=== PATIENT | female | born 1940 | race Caucasian/White ===

== ENCOUNTER → 2017-07-17 10:48 | Outpatient (CLI) | payer MEDICARE, SELFPAY ==
--- NOTE | 2017-07-17 10:51 | ECHOD_ITS ---
Reason For Study: Abn. PFT Procedure This was a 2D Doppler, Color Flow transthoracic echocardiogram. Exam performed in department. Left Ventricle Normal LV size. Mild concentric left ventricular hypertrophy. Left ventricular systolic function is normal. The estimated ejection fraction is 70 %. No regional wall motion abnormalities noted. Right Ventricle Normal RV size. Normal systolic function. Atria Normal left atrium. Normal right atrium. Mitral Valve Normal mitral valve. Mild (1+) eccentric mitral valve insufficiency. Tricuspid Valve Normal tricuspid valve. Mild (1+) tricuspid valve insufficiency. Pulmonary artery systolic pressure is 29 mmHg. Aortic Valve Normal aortic valve. Trisinus/trileaflet aortic valve. Pulmonic Valve Normal pulmonic valve. Great Vessels Normal aortic root. The pulmonary artery is normal size. Normal inferior vena cava. Pericardium/Pleural No pericardial effusion. Medication 22 gauge I.V. with prn adaptor inserted into right arm. Definity0.4ml given slow IV push to enhance endocardial definition. MMode/2D Measurements & Calculations LVIDd: 3.5 cm IVSd: 1.3 cm Ao root diam: 2.7 cm LVIDs: 1.7 cm LVPWd: 1.3 cm LA dimension: 4.1 cm RVDd: 2.6 cm FS: 50.7 % LAV(MOD-bp): 40.5 ml LAV(MOD-bp) Indexed: 22.1 ml/m2 LA A4 area: 18.1 cm2 RA A4 area: 18.0 cm2 LAV(MOD-sp2): 26.9 ml LAV(MOD-sp4): 45.4 ml Doppler Measurements & Calculations MV E max dudley: 115.6 cm/sec Lat Peak E' Dudley: 7.5 cm/sec Med Peak E' Dudley: 7.6 cm/sec MV A max dudley: 75.1 cm/sec E/E' lat: 15.4 E/E' med: 15.2 MV E/A: 1.5 Ao V2 max: 127.9 cm/sec LV V1 max: 99.7 cm/sec PA V2 max: 69.5 cm/sec Ao max P.5 mmHg LV V1 max P.0 mmHg TR max dudley: 248.1 cm/sec TR max P.7 mmHg Interpretation Summary Normal LV size. Mild concentric left ventricular hypertrophy. Left ventricular systolic function is normal. The estimated ejection fraction is 70 %. Mild (1+) tricuspid valve insufficiency. Pulmonary artery systolic pressure is 29 mmHg. Ordering Physician: Swapna Lowry Performed By: Krys Gomez RDCS
== END ==
PROVIDERS: Family Provider Internal Medicine; PCP Internal Medicine; Visit Provider Internal Medicine
DX: R94.2 Abnormal results of pulmonary function studies (principal); R94.31 Abnormal electrocardiogram [ECG] [EKG]
CPT/HCPCS: 93306; Q9957; A4216

== ENCOUNTER → 2018-03-27 12:49 | Outpatient (CLI) | payer MEDICARE, SELFPAY | PROVIDERS: Family Provider Internal Medicine; PCP Internal Medicine; Visit Provider Internal Medicine | DX: Z13.1 Encounter for screening for diabetes mellitus (principal) | CPT/HCPCS: 77063; 77067 ==

== ENCOUNTER → 2018-08-19 10:10 | Outpatient (CLI) | payer MEDICARE, SELFPAY ==
--- NOTE | 2018-08-19 10:13 | MRI_ITS ---
STUDY: MRI BRAIN WITH AND WITHOUT CONTRAST REASON FOR EXAM: Female, 78 years old. Left tinnitus. Decreased hearing since ear infection 3-5 years ago. TECHNIQUE: Standardized multiplanar fat and water weighted pulse sequences were obtained. 8 ml of Gadavist contrast material was administered intravenously for the contrast portion of the examination. COMPARISON: None. FINDINGS: Normal size of the ventricles and extra-axial spaces for the patient's age. Subcortical white matter and periventricular white matter T2 FLAIR hyperintensity foci in both cerebral hemispheres are chronic white matter ischemic changes. Normal bilateral basal ganglia. Normal thalami. There is no extra-axial fluid accumulation. Normal flow voids within the major intracranial circulation suggesting patency by spin echo criteria. Normal venous enhancement. There is no enhancing intra-axial or extra-axial abnormality. Normal sella turcica, pituitary gland, infundibular stalk, optic chiasm and hypothalamus. Normal tectal plate and pineal gland. Normal midbrain, joanna and medulla. Normal cerebellum. Normal basal cisterns. Normal bilateral temporal bones. Normal bilateral internal auditory canals. No demonstrated orbital abnormality, within the constraints of a routine brain study. Normal visualized paranasal sinuses. Normal calvarium and skull base. Normal visualized soft tissue structures. Normal visualized upper cervical spine. MRI/Brain W/WO Contrast IMPRESSION: 1. No MRI evidence of acute or subacute ischemic infarct or acute intracranial abnormality. 2. No MRI evidence of any suspicious abnormalities of the 7th and 8th nerve bundles and the membranous labyrinths with and without intravenous contrast. 3. Chronic white matter ischemic changes in both cerebral hemispheres. Electronically Signed: Adonis Zaman MD at 12:00 EST , Service support ,
[2018-08-19 10:55] LABS: CREATININE FINGERSTICK 0.9 mg/dL (0.55-1.02); EGFR FINGERSTICK > 60.0000 mL/min (>60)
== END ==
PROVIDERS: Family Provider Internal Medicine; PCP Internal Medicine; Referring Provider Internal Medicine; Visit Provider Internal Medicine
DX: H93.12 Tinnitus, left ear (principal)
CPT/HCPCS: 70553; A9585

== ENCOUNTER → 2019-04-15 14:28 | Outpatient (CLI) | payer MEDICARE, SELFPAY ==
--- NOTE | 2019-04-15 14:32 | BI_ITS ---
MAMMOGRAPHY - BILATERAL SCREENING REASON FOR EXAM: Female, 79 years old. Routine annual screening examination. PERTINENT HISTORY: Non-contributory. TECHNIQUE: Digital bilateral breast ej (3D mammographic acquisition) in the CC and MLO projections. 2-D mediolateral oblique (MLO) and craniocaudad (CC) views of both breasts were obtained. CAD: Full Field Digital Mammography with Computer Added Detection was performed. COMPARISON: Comparison is made with prior examination dated March 27, 2018 and March 26, 2017. FINDINGS: Breast Composition: The breasts are almost entirely fatty. There are no dominant masses or suspicious calcifications. Stable secretory calcifications bilaterally. No other significant abnormalities are identified. There has been no significant change since the prior study. BI/SCREEN MAMM (CAD) W/EJ BILAT IMPRESSION: Stable bilateral screening mammogram. Yearly follow-up mammogram recommended. (A) ASSESSMENT CATEGORY: BIRADS Category 2: Benign. A letter regarding these results will be sent to the patient by the facility within 30 days. Approximately 10% of breast cancers are not detected by mammography. A normal mammogram should not delay biopsy of a clinically suspicious abnormality. [id number] Electronically Signed: Narciso Alexis, at 15:39 EDT , Service support ,
--- NOTE | 2019-04-15 14:33 | BD_ITS ---
STUDY: DUAL ENERGY X-RAY ABSORPTIOMETRY / DXA REASON FOR EXAM: Female, 79 years old. The patient is postmenopausal. Loss of height. TECHNIQUE: Bone Mineral Density (BMD) measurements of lumbar spine and right hip were obtained. COMPARISON: Comparison is made with prior study dated March 26, 2017. FINDINGS: Lumbar Spine (L1-L4): g/cm2 (1.145) / T-score (-0.2) / Z-score (1.6) Findings are suggestive of normal bone density with a low fracture risk. Right Femur Total: g/cm2 (0.783) / T-score (-1.8) / Z-score (0.2) Right Femoral Neck: g/cm2 (0.773) / T-score (-1.9) / Z-score (0.2) The T-Scores on the most recent prior examination were: Lumbar Spine (L1-L4): There has been improvement of bone density since the previous examination. Right Femur Total: which represents a worsening of 3.6%. BD/Dexa Bone Density Study IMPRESSION: The patient is considered osteopenic as outlined below according to World Laron Organization (WHO) criteria with a moderate fracture risk. There has been worsening of bone density since the previous examination. Reference Information: The T-score is the number of standard deviations above or below the standard which is normal for young adults at their peak bone mineral density. The World Health Organization (WHO) interprets the T-scores as follows: Above -1 Normal bone density Between -1 and -2.5 Osteopenia Equal to / or below -2.5 Osteoporosis As a practical clinical guideline, osteopenia may be graded as follows: Mild -1 through -1.5 Moderate -1.6 through -2.0 Severe -2.1 through -2.4 The Z-score is the number of standard deviations above or below age-matched controls. A Z-score of less than -1.5 would be considered abnormal. References: 1. NIH Osteoporosis and Related Bone Diseases http://www.osteo.org 2. International Society for Clinical Densitometry http://www.iscd.org 3. National Osteoporosis Foundation http://www.nof.org Electronically Signed: Narciso Alexis, at 8:56 EDT , Service support ,
== END ==
PROVIDERS: Family Provider Internal Medicine; PCP Internal Medicine; Referring Provider Internal Medicine; Visit Provider Internal Medicine
DX: Z78.0 Asymptomatic menopausal state (principal); Z12.31 Encounter for screening mammogram for malignant neoplasm of breast
CPT/HCPCS: 77063; 77067; 77080

== ENCOUNTER 2019-07-27 16:06 | Emergency (ER) | payer MEDICARE, SELFPAY ==
[2019-07-12 15:24] VITALS: BMI 37.0
[2019-07-27 16:08] VITALS: BP 194/68; PULSE 67; RESP 16; TEMP 36.6; O2SAT 95; BMI 38.4
[2019-07-27 16:10] VITALS: PULSE 65; RESP 16; O2SAT 97
--- NOTE | 2019-07-27 16:16 | RAD_ITS ---
STUDY: X-RAY - RIGHT SHOULDER REASON FOR EXAM: Female, 79 years old. Lateral right shoulder pain after falling TECHNIQUE: 4 view(s) of the shoulder. COMPARISON: None. FINDINGS: There is mild degenerative arthrosis of the glenohumeral articulation. There is degenerative arthrosis of the acromioclavicular joint without inferior osseous spur formation. There is spurring of the undersurface of the acromion. Normal humeral head and visualized proximal humerus. The soft tissue structures are unremarkable. Normal visualized pulmonary apex. RAD/Shoulder min 2 Views IMPRESSION: Glenohumeral and acromioclavicular joint arthrosis Electronically Signed: Mayo Cm MD (Brooks) at 16:52 EST , Service support ,
--- NOTE | 2019-07-27 16:18 | ED.DCSUM_ITS ---
- ER Visit Summary Date of Service: 07/27/19 Chief Complaint: Fall History of Present Illness: The patient is a 79 F presenting after fall. Patient was going to the mailbox and tripped and fell. She did not hit her head or lose consciousness. She states she tripped over a small curb. She complains of right shoulder pain. Denies other injuries. Physical Examination: Vitals are stable. Patient is afebrile. Alert no acute distress. HEENT exam is unremarkable. Neck is nontender Lungs are clear and equal bilaterally. Heart is regular rate and rhythm. Abdomen is soft nontender nondistended. Extremities mild diffuse right shoulder tenderness with painful range of motion. Neurovascular intact distally. Skin is warm and dry. No focal neurologic deficit. Remainder of exam is unremarkable. Emergency Department Course and Treatment: Right shoulder x-ray shows glenohumeral and acromioclavicular joint arthrosis. She was given [place] x1. She is given a short course of [place]. She was given a sling. She is able to ambulate in the ED. Advised to follow-up with primary care physician. Advised return to ED for worsening complaints. Disposition: Discharge home Impression: Right shoulder sprain status post fall This note was generated with indidebt dictation software. It may contain incorrect words, spelling, and punctuation that were not noted in review of the chart prior to signing ED Disposition - Plan for ED Patient: Instructions: Shoulder Sprain Prescriptions: Hydrocodone Bitart/Apap 5-325 [[place] 5MG-325MG] 1 tab PO Q6H PRN PRN 3 Days #10 tab PRN Reason: Pain Prescription Printed Referrals: Swapna Lowry DO [Primary Care Provider] -
[2019-07-27] MEDS: HYDROcodone Bitartrate/Apap 5/325 Tablet PO (16:21)
--- NOTE | 2019-07-27 17:27 | ED.DEP ---
ED Disposition - Plan for ED Patient: Instructions: Shoulder Sprain Prescriptions: Hydrocodone Bitart/Apap 5-325 [[place] 5MG-325MG] 1 tablet PO Q6H PRN PRN 3 Days #10 tablet PRN Reason: Pain Referrals: Swapna Lowry DO [Primary Care Provider] -
[2019-07-27 17:37] VITALS: RESP 16
== END 2019-07-27 17:37 | disposition home or self-care (01) ==
LOC: ED 16:21
PROVIDERS: Emergency Provider Emergency Medicine; Family Provider Internal Medicine; PCP Internal Medicine
DX: S43.401A Unspecified sprain of right shoulder joint, initial encounter (principal); M19.011 Primary osteoarthritis, right shoulder; W01.0XXA Fall on same level from slipping, tripping and stumbling without subsequent striking against object, initial encounter; Y93.9 Activity, unspecified; Y92.9 Unspecified place or not applicable; I10 Essential (primary) hypertension; E78.00 Pure hypercholesterolemia, unspecified; Z79.82 Long term (current) use of aspirin; Z79.899 Other long term (current) drug therapy
CPT/HCPCS: 73030; 99285

== ENCOUNTER → 2020-04-18 16:07 | Outpatient (CLI) | payer MEDICARE, SELFPAY ==
--- NOTE | 2020-04-18 16:18 | BI_ITS ---
MAMMOGRAPHY - BILATERAL SCREENING REASON FOR EXAM: Female, 80 years old. Routine annual screening examination. PERTINENT HISTORY: Non-contributory. TECHNIQUE: Digital bilateral breast ej (3D mammographic acquisition) in the CC and MLO projections. 2-D mediolateral oblique (MLO) and craniocaudad (CC) views of both breasts were obtained. CAD: Full Field Digital Mammography with Computer Added Detection was performed. COMPARISON: Comparison is made with prior study dated 04/15/2019 and 03/27/2018. FINDINGS: Breast Composition: The breasts are almost entirely fatty. There are no dominant masses or suspicious calcifications. Stable benign-appearing bilateral axillary lymph nodes. Stable bilateral secretory calcifications. No other significant abnormalities are identified. There has been no significant change since the prior study. BI/SCREEN MAMM (CAD) W/EJ BILAT IMPRESSION: Stable bilateral screening mammogram. Yearly follow-up mammogram recommended. (A) ASSESSMENT CATEGORY: BIRADS Category 2: Benign. A letter regarding these results will be sent to the patient by the facility within 30 days. Approximately 10% of breast cancers are not detected by mammography. A normal mammogram should not delay biopsy of a clinically suspicious abnormality. [id number] Electronically Signed: Narciso Alexis, at 8:41 EDT , Service support ,
== END ==
PROVIDERS: PCP Internal Medicine; Referring Provider Internal Medicine; Visit Provider Internal Medicine
DX: Z12.31 Encounter for screening mammogram for malignant neoplasm of breast (principal)
CPT/HCPCS: 77063; 77067

== ENCOUNTER → 2021-07-04 10:54 | Outpatient (CLI) | payer MEDICARE, SELFPAY ==
--- NOTE | 2021-07-04 10:56 | BI_ITS ---
MAMMOGRAPHY - BILATERAL SCREENING 3-D TOMOSYNTHESIS REASON FOR EXAM: Female, 81 years old. Routine screening PERTINENT HISTORY: No significant family history. TECHNIQUE: 2-D mammograms and 3-D Tomosynthesis of the breast (s) were performed. CAD was performed. COMPARISON: 04/18/2020 FINDINGS: The breast composition is almost entirely fat. Scattered benign calcifications are seen. No dense spiculated masses or suspicious microcalcifications are identified. No architectural distortion is identified. There is no skin thickening or retraction. There has been no significant change since the prior study. BI/SCRN MAMM (CAD)W/EJ BILAT IMPRESSION: No mammographic signs of malignancy. Routine yearly mammograms recommended. ASSESSMENT CATEGORY: BIRADS Category 1: Negative. A letter regarding these results will be sent to the patient by the facility within 30 days. FOLLOW UP RECOMMENDATION: Yearly follow up mammogram recommended. (A) Approximately 10% of breast cancers are not detected by mammography. A normal mammogram should not delay biopsy of a clinically suspicious abnormality. Electronically Signed: Per Power MD at 14:23 EST , Service support ,
--- NOTE | 2021-07-04 11:00 | BD_ITS ---
STUDY: DUAL ENERGY X-RAY ABSORPTIOMETRY / DXA REASON FOR EXAM: Female, 81 years old. [id number] -- . TECHNIQUE: Bone Mineral Density (BMD) measurements of lumbar spine and right hip were obtained. COMPARISON: Comparison is made with prior examination dated 04/15/2019. FINDINGS: Lumbar Spine (L1-L4): g/cm2 (0.992) / T-score (-0.5) / Z-score (2.2) Findings are suggestive of normal bone density with a low fracture risk. Right Femur Total: g/cm2 (0.744) / T-score (-1.6) / Z-score (0.5) Right Femoral Neck: g/cm2 (0.604) / T-score (-2.2) / Z-score (0.2) The T-Scores on the most recent prior examination were: Lumbar Spine (L1-L4): There has been worsening of bone density since the previous examination. Right Femur Total: which represents an improvement of 2.9%. BD/Dexa Bone Density Study IMPRESSION: The patient is considered osteopenic as outlined below according to World Laron Organization (WHO) criteria with a high fracture risk. There has been worsening of bone density since the previous examination. Reference Information: The T-score is the number of standard deviations above or below the standard which is normal for young adults at their peak bone mineral density. The World Health Organization (WHO) interprets the T-scores as follows: Above -1 Normal bone density Between -1 and -2.5 Osteopenia Equal to / or below -2.5 Osteoporosis As a practical clinical guideline, osteopenia may be graded as follows: Mild -1 through -1.5 Moderate -1.6 through -2.0 Severe -2.1 through -2.4 The Z-score is the number of standard deviations above or below age-matched controls. A Z-score of less than -1.5 would be considered abnormal. References: 1. NIH Osteoporosis and Related Bone Diseases www osteo.org 2. International Society for Clinical Densitometry www iscd.org 3. National Osteoporosis Foundation www nof.org Electronically Signed: Narciso Alexis MD at 13:39 EST , Service support ,
== END ==
PROVIDERS: PCP Internal Medicine; Referring Provider Internal Medicine; Visit Provider Internal Medicine
DX: Z12.31 Encounter for screening mammogram for malignant neoplasm of breast (principal); Z78.0 Asymptomatic menopausal state
CPT/HCPCS: 77063; 77067; 77080

== ENCOUNTER → 2022-04-12 | Outpatient (CLI) | payer MEDICARE, SELFPAY ==
--- NOTE | 2022-04-12 13:40 | CT_ITS ---
STUDY: CT CHEST WITHOUT CONTRAST REASON FOR EXAM: Female, 82 years old. Following fibrosis and pulmonary nodules -- following fibrosis and pulmonary nodules RADIATION DOSAGE (If Supplied By Facility): CTDIvol = ( 19.15 ) mGy, DLP = ( 768.53 ) mGycm TECHNIQUE: Transaxial imaging was performed without the administration of intravenous contrast material. Multiplanar coronal and sagittal images were reformatted. Individualized dose optimization techniques were used for this CT. COMPARISON: Comparison is made with prior study of 12/13/2015. FINDINGS: CHEST Stable mild scarring in the lower. Mild degree of bronchiectasis. There is no demonstrated pleural abnormality. There are calcifications of the coronary arteries. There are multiple small lymph nodes within the mediastinum, which are normal in size and morphology most compatible with reactive lymph hyperplasia. Normal hilar regions. Normal unenhanced pulmonary arteries. There is atherosclerotic calcification of the aortic arch with tortuosity and elongation of the aortic arch and descending thoracic aorta. There are multi-level degenerative changes of the thoracic spine. There is no demonstrated abnormality of the visualized upper abdomen. CT/Chest without Contrast IMPRESSION: Stable examination. Electronically Signed: Narciso Alexis MD at 14:13 EDT ,
== END | disposition home or self-care (01) ==
PROVIDERS: PCP Internal Medicine; Referring Provider Internal Medicine; Visit Provider Internal Medicine
DX: J84.10 Pulmonary fibrosis, unspecified (principal); R91.1 Solitary pulmonary nodule
CPT/HCPCS: 71250

== ENCOUNTER 2022-07-12 12:37 | Outpatient (CLI) | payer MEDICARE, SELFPAY ==
--- NOTE | 2022-07-12 12:42 | BI_ITS ---
MAMMOGRAPHY - BILATERAL SCREENING REASON FOR EXAM: Female, 82 years old. Routine annual screening examination. PERTINENT HISTORY: Non-contributory. TECHNIQUE: Digital bilateral breast ej (3D mammographic acquisition) in the CC and MLO projections. 2-D mediolateral oblique (MLO) and craniocaudad (CC) views of both breasts were obtained. CAD: Full Field Digital Mammography with Computer Added Detection was performed. COMPARISON: Comparison is made with prior study 07/04/2021 and 04/18/2020. FINDINGS: Breast Composition: The breasts are almost entirely fatty. There are no dominant masses or suspicious calcifications. Stable 5.1 mm benign-appearing lymph node in the upper lateral aspect of the right breast. No other significant abnormalities are identified. There has been no significant change since the prior study. BI/SCRN MAMM (CAD)W/EJ BILAT IMPRESSION: Stable bilateral screening mammogram. Yearly follow-up mammogram recommended. (A) ASSESSMENT CATEGORY: BIRADS Category 2: Benign. A letter regarding these results will be sent to the patient by the facility within 30 days. Approximately 10% of breast cancers are not detected by mammography. A normal mammogram should not delay biopsy of a clinically suspicious abnormality. [id number] Electronically Signed: Narciso Alexis MD at 13:44 EST ,
== END 2022-07-12 23:59 | disposition home or self-care (01) ==
PROVIDERS: PCP Internal Medicine; Referring Provider Internal Medicine; Visit Provider Internal Medicine
DX: Z12.31 Encounter for screening mammogram for malignant neoplasm of breast (principal); Z78.0 Asymptomatic menopausal state
CPT/HCPCS: 77063; 77067

== ENCOUNTER 2022-07-16 12:30 | Outpatient (CLI) | payer MEDICARE, SELFPAY ==
--- NOTE | 2022-07-17 05:44 | PFTCOMP_ITS ---
COMPLETE PULMONARY FUNCTION TEST INTERPRETATION Brief HPI: Patient is an 82-year-old female, currently under the care of Dr. Lowry, who presents to [facility] for complete pulmonary function tests secondary to diagnosis of pulmonary fibrosis. Respiratory therapist reports good effort and reproducible results. Interpretation: Forced expiration spirometry shows no large airways obstructive ventilatory defect with an FEV1 of 82% predicted. There is no significant bronchodilator response by strict ATS criteria. Spirograms are of good quality and plateau normally. The respiratory flow volume loop shows a normal pattern. Lung volumes by body plethysmography show a mildly decreased total lung capacity at 2.97 L, 72% predicted. All other lung volumes are reduced symmetrically. Diffusion capacity by carbon monoxide is decreased at 62% predicted. The airway resistance is normal. Compared to previous pulmonary function tests from 07/10/2017, there has been a decrease in TLC by 15%, but DLCO has improved by 19%. Impression: Mild restrictive ventilatory defect with a symmetric reduction diffusing capacity and some changes compared to 2017.
== END 2022-07-16 23:59 | disposition home or self-care (01) ==
LOC: PSN 12:32
PROVIDERS: PCP Internal Medicine; Referring Provider Internal Medicine; Visit Provider Internal Medicine
DX: J84.10 Pulmonary fibrosis, unspecified (principal)
CPT/HCPCS: 94060; 94726; 94729

== ENCOUNTER → 2022-07-31 | Outpatient (CLI) | payer MEDICARE, SELFPAY ==
--- NOTE | 2022-07-31 06:52 | ECHOD_ITS ---
Reason For Study: Dyspnea/SOB Procedure This was a 2D Doppler, Color Flow transthoracic echocardiogram. The study was technically difficult. Patient refused IV for Definity. Exam performed in department. Left Ventricle Normal LV size. Left ventricular systolic function is normal. The estimated ejection fraction is 70 %. Diastolic function is indeterminate. No regional wall motion abnormalities noted. Right Ventricle Normal RV size. Normal systolic function. Atria Normal left atrium. Normal right atrium. No doppler evidence for ASD. Mitral Valve There is no mitral annular calcification. Normal mitral valve. Trivial mitral valve insufficiency. Tricuspid Valve Normal tricuspid valve. Trivial tricuspid valve insufficiency. Unable to estimate RV systolic pressure/pulmonary artery pressure due to technically difficult study. Aortic Valve The aortic valve is not well visualized. Trivial aortic valve insufficiency. Pulmonic Valve The pulmonic valve is not well visualized. Great Vessels The aortic root is not well visualized. Pericardium/Pleural No pericardial effusion. MMode/2D Measurements & Calculations LVIDd: 4.0 cm IVSd: 1.1 cm LAV(MOD-bp): 56.1 ml LVIDs: 2.5 cm LVPWd: 0.71 cm LAV(MOD-bp) Indexed: 30.2 ml/m2 RVDd: 2.5 cm FS: 38.4 % LAV(MOD-sp2): 68.1 ml LAV(MOD-sp4): 43.3 ml LA dimension(2D): 3.1 cm LA A4 area: 19.1 cm2 RA A4 area: 12.7 cm2 Time Measurements MV dec time: 0.25 sec Doppler Measurements & Calculations MV E max dudley: 103.8 cm/sec Lat Peak E' Dudley: 7.8 cm/sec Med Peak E' Dudley: 7.6 cm/sec MV A max dudley: 92.5 cm/sec E/E' lat: 13.3 E/E' med: 13.7 MV E/A: 1.1 Ao V2 max: 163.0 cm/sec LV V1 max: 135.6 cm/sec PA V2 max: 63.3 cm/sec Ao max P.6 mmHg LV V1 max P.4 mmHg Ao V2 mean: 124.4 cm/sec Ao mean P.7 mmHg Ao V2 VTI: 39.7 cm ECHO/Echo Complete Interpretation Summary The study was technically difficult. Left ventricular systolic function is normal. The estimated ejection fraction is 70 %. Trivial mitral valve insufficiency. Trivial tricuspid valve insufficiency. Trivial aortic valve insufficiency. Unable to estimate RV systolic pressure/pulmonary artery pressure due to techni briana difficult study. Diastolic function is indeterminate. Ordering Physician: Florentin Vega Referring Physician: Swapna Lowry Performed By: Romi Albarran, ALISSON, RVT
--- NOTE | 2022-07-31 09:41 | STRESSREP ---
Stress Test Report Date: 07-31-2022 Procedure: Pharmacologic stress nuclear imaging study Indications: Shortness of breath/dyspnea on exertion; CAD Consent: Per the patient Procedure: The patient underwent pharmacologic (Regadenoson 0.4mg ) evaluation with a peak heart rate of 74 beats per minute (53%predicted maximal heart rate) and a resting blood pressure of 132/68 mmHg and a peak blood pressure of 140/62 mmHg. The baseline ECG demonstrated normal sinus rhythm. The peak pharmacologic ECG demonstrated no obvious ECG changes. There were no cardiac dysrhythmias pretest, during pharmacologic infusion, or recovery. There was no complaint of chest discomfort during pharmacologic infusion or recovery. The examination was discontinued secondary to completion of protocol. Impression: 1. Pharmacologic (Regadenoson) evaluation 2. Peak pharmacologic ECG with no obvious ECG changes. 3. There were no cardiac dysrhythmias pretest, during pharmacologic infusion, or recovery. 4. Nuclear images pending Myocardial perfusion imaging study: Technique: The patient was injected with 11.2 millicuries of technetium 99m Cardiolite and subsequently rest SPECT Cardiolite nuclear imaging was obtained in the horizontal long, vertical long, and short axis views. The patient underwent pharmacologic (Regadenoson) evaluation with a peak heart rate of 74 beats per minute (53% percent predicted maximal heart rate) and a resting blood pressure of 132/68 mmHg and a peak blood pressure of 140/62 mmHg. The patient was injected with 36.0 millicuries of technetium 99m Cardiolite and subsequently stress SPECT Cardiolite nuclear imaging was obtained in the horizontal long, vertical long, and short axis views. A gated Cardiolite study at peak stress was obtained. Interpretation: Rest and stress SPECT Cardiolite nuclear imaging status post realignment, normalization, and attenuation correction demonstrate relative uniform tracer uptake and myocardial perfusion appearing within normal limits. There is end systolic thickening and brightening. The gated Cardiolite study demonstrates myocardial thickening and inward wall motion. The reported LVEF is 80%. Impression: 1. Rest and stress SPECT Cardiolite nuclear imaging demonstrate relative uniform tracer uptake and myocardial perfusion appearing within normal limits. 2. The gated Cardiolite study reports an LVEF of 80%. This note was generated with TRIRIGAation software. It may contain incorrect words, spelling, and punctuation that were not noted in checking the note before signing.
== END | disposition home or self-care (01) ==
LOC: CVS 06:51
PROVIDERS: PCP Internal Medicine; Visit Provider Internal Medicine Cardiovascular Disease
DX: R06.02 Shortness of breath (principal); R06.09 Other forms of dyspnea; I10 Essential (primary) hypertension; I25.10 Atherosclerotic heart disease of native coronary artery without angina pectoris; E78.5 Hyperlipidemia, unspecified; I49.3 Ventricular premature depolarization; I49.1 Atrial premature depolarization
CPT/HCPCS: 78452; 93017; 93306; A9500; A4216; J2785

== ENCOUNTER → 2023-07-14 | Outpatient (CLI) | payer MEDICARE, SELFPAY ==
--- NOTE | 2023-07-14 13:18 | BI_ITS ---
MAMMOGRAPHY - BILATERAL SCREENING REASON FOR EXAM: Female, 83 years old. Routine annual screening examination. PERTINENT HISTORY: Non-contributory. TECHNIQUE: Digital bilateral breast ej (3D mammographic acquisition) in the CC and MLO projections. 2-D mediolateral oblique (MLO) and craniocaudad (CC) views of both breasts were obtained. CAD: Full Field Digital Mammography with Computer Added Detection was performed. COMPARISON: Comparison is made with prior study dated July 12, 2022 and July 04, 2021. FINDINGS: Breast Composition: The breasts are almost entirely fatty. There are no dominant masses or suspicious calcifications. Stable 5.1 mm benign-appearing lymph node in the upper lateral aspect of the right breast. No other significant abnormalities are identified. There has been no significant change since the prior study. BI/SCRN MAMM (CAD)W/EJ BILAT IMPRESSION: Stable bilateral screening mammogram. Yearly follow-up mammogram recommended. (A) ASSESSMENT CATEGORY: BIRADS Category 2: Benign. A letter regarding these results will be sent to the patient by the facility within 30 days. Approximately 10% of breast cancers are not detected by mammography. A normal mammogram should not delay biopsy of a clinically suspicious abnormality. [id number] Electronically Signed: Narciso Alexis MD at 14:20 EST ,
== END | disposition home or self-care (01) ==
LOC: OPBI 13:18
PROVIDERS: PCP Internal Medicine; Referring Provider Internal Medicine; Visit Provider Internal Medicine
DX: Z12.31 Encounter for screening mammogram for malignant neoplasm of breast (principal)
CPT/HCPCS: 77063; 77067

== ENCOUNTER 2024-02-27 18:14 | Inpatient (IN) | payer MEDICARE, SELFPAY ==
[2024-02-27 18:35] VITALS: BP 148/55; PULSE 71; RESP 16; TEMP 36.7; O2SAT 94
[2024-02-27 18:38] VITALS: BMI 36.4
[2024-02-27 20:55] VITALS: PULSE 72; RESP 18
[2024-02-27] MEDS: oxyCODONE 5 MG Tablet PO (21:13)
[2024-02-27] MEDS: Docusate Sodium 100 MG Capsule PO (21:16)
[2024-02-27] MEDS: Atenolol 25 MG Tablet 75 MG PO (21:16)
[2024-02-27] MEDS: Multivitamin (Healthy Eyes) Capsule 1 CAP PO (21:16)
[2024-02-27] MEDS: Losartan Potassium 100 MG Tablet PO (21:16)
--- NOTE | 2024-02-27 22:10 | HP.PCM_ITS ---
HPI - General General Date of Admission: 02/27/24 Date of Service: 03/01/24 Chief Complaint: Here for rehabilitation. HPI Narrative CASSANDRA DELGADO, is a 84 Female who presents with followin02/24/2024 Admit to [facility]. 02/24/2024 Dr. Mills performed right total hip arthroplasty. 02/26/2024 Sitting in chair, pain controlled. Able to work with therapy. Pre-CERT for SNF. Aspirin 81mg twice daily x 4 weeks for DVT prophylaxis ( stop date 03/26/2024) Hemoglobin 10.4. [place] regimen for constipation. 02/27/2024 Admit to TCU with debility, here for rehabilitation, strengthening, prior to discharge home alone. [facility] Medical History (Updated 02/27/24 @ 22:[address] Levy Garcia MD) Macular degeneration Vision problem Skin cancer H/O: pneumonia Osteopenia IBS (irritable bowel syndrome) Type 2 diabetes mellitus Cataracts, bilateral Back problem Essential hypertension Fibromyalgia GERD (gastroesophageal reflux disease) Atherosclerotic heart disease of kashia coronary artery without angina pectoris Osteoarthritis of left hip Gout Hyperlipidemia Premature ventricular contraction Premature atrial contractions Hypothyroidism Home Medications ?Medication ?Instructions ?Recorded ?Last Taken ?Type Plexus Xfactor 2 tab PO DAILY unknown 07/08/17 Unknown History losartan 100 mg tablet 100 mg PO QHS BLOOD PRESSURE 07/08/17 02/26/24 21:30 History lactobacillus combination no.9 4 4,000 mmu cells PO QDAY Probiotic 03/30/18 Unknown History billion cell capsule (Adult 50 Plus Probiotic) diphenhydramine HCl 25 mg capsule 25 mg PO Q6H PRN itching 06/05/20 02/25/24 History (Allergy Relief (diphenhydramine)) liothyronine 5 mcg tablet 5 mcg PO DAILY Thyroid 06/05/20 02/27/24 06:15 History vitamins A,C,H-sjdb-qlmhho 4,296 1 cap PO BID Supplement 06/22/21 02/27/24 11:45 History mcg-226 mg-90 mg capsule (PreserVision AREDS) aspirin 81 mg tablet,delayed 81 mg PO .3XW Heart 07/15/22 Unknown History release atenolol 50 mg tablet 75 mg PO QHS BLOOD PRESSURE 07/15/22 Unknown History cholecalciferol (vitamin D3) 50 8,000 unit PO DAILY supplement 07/15/22 Unknown History mcg (2,000 unit) capsule levothyroxine 150 mcg tablet 150 mcg PO .COMPLEX Thyroid 07/15/22 02/27/24 06:15 History naproxen sodium 220 mg tablet 220 mg PO BID PRN 07/15/22 Unknown History (Aleve) amlodipine 10 mg tablet 10 mg PO DAILY Blood pressure 02/27/24 02/27/24 08:30 History aspirin 81 mg chewable tablet 1 tab PO BID heart 02/27/24 02/27/24 16:20 History atenolol 50 mg tablet 50 mg PO DAILY Blood Pressure 02/27/24 02/27/24 08:30 History docusate sodium 100 mg capsule 100 mg PO BID Constipation 02/27/24 02/27/24 08:30 History (Colace) famotidine 20 mg tablet (Pepcid) 20 mg PO DAILY GERD 02/27/24 02/27/24 08:30 History magnesium hydroxide 400 mg/5 mL 30 ml PO DAILY constipation 02/27/24 Unknown History oral suspension (Milk of Magnesia) oxycodone 5 mg capsule See Rx Instructions .Route 02/27/24 02/27/24 16:20 History .COMPLEX PRN Pain1-10 sennosides 8.6 mg-docusate sodium 1 tab-cap PO BID PRN Constipation 02/27/24 02/25/24 History 50 mg tablet (Senna Plus) Allergy/AdvReac Type Severity Reaction Status Date / Time levofloxacin (From Levaquin) Allergy Unknown Verified 07/15/22 11:22 morphine Allergy Itching Verified 07/15/22 11:22 prednisone Allergy Swelling Verified 07/15/22 11:22 celecoxib (From Celebrex) AdvReac Upset Verified 07/15/22 11:22 Stomach hydrochlorothiazide AdvReac DIZZINESS Verified 07/15/22 11:22 niacin AdvReac HOT FLASHES Verified 07/15/22 11:22 pitavastatin (From Livalo) AdvReac MUSCLE Verified 07/15/22 11:22 ACHES Family History Mother Hypertension Arthritis Diabetes Thyroid disorder Sister CAD (coronary artery disease) Hypertension Arthritis Diabetes Heart disease Thyroid disorder Surgical History (Updated 02/27/24 @ 22:[address] Levy Garcia MD) History of total right hip arthroplasty History of bilateral cataract extraction History of carpal tunnel release History of hip replacement (~07/2017) History of shoulder surgery History of knee replacement procedure of right knee History of tubal ligation History of cholecystectomy Social History (Updated 02/27/24 @ 22:[address] Levy Garcia MD) household members: none Smoking Status: Never smoker alcohol intake: never substance use type: does not use what type of physical activity do you participate in: none ROS Constitutional Constitutional: Reports weakness; Denies chills, fever(s) or weight gain ENT HEENT: Denies headache(s), nasal congestion or nasal discharge Cardiovascular Cardiovascular: Denies chest pain or palpitations Respiratory/Chest Respiratory/Chest: Denies cough, excessive phlegm production or shortness of breath with exertion Gastrointestinal Gastrointestinal: Denies abdominal pain, nausea or vomiting Genitourinary Genitourinary: Denies dysuria Musculoskeletal Musculoskeletal: Reports joint pain; Denies joint swelling Integumentary Integumentary: Denies rash or wounds Neurologic Neurologic: Denies focal weakness, numbness or tingling Psychiatric Psychiatric: Denies anxiety, auditory hallucinations, depression, homicidal ideation or suicidal ideation Vital Signs Vital Signs Vital Signs: 02/27/24 18:35 02/27/24 20:55 Temperature 98.1 F Temperature Source Temporal Pulse Rate 71 72 Pulse Rhythm Regular Pulse Strength Normal (2+) Respiratory Rate 16 18 Respiratory Effort Normal Non-Labored Respiratory Depth Normal Respiratory Pattern Normal Blood Pressure 148/55 H Blood Pressure Mean 86 Blood Pressure Source Monitor Blood Pressure Position Semi-Fowlers Blood Pressure Location Left Arm Pulse Ox 94 Oxygen Delivery Method Room Air Room Air Weight Weight: 87.543 kg Body Mass Index (BMI) 36.4 Physical Exam Const alert General Appearance: cooperative HEENT normocephalic Eyes PERRL and EOMs intact bilaterally Neck supple, no JVD and no carotid bruits Resp normal respiratory effort, normal air movement and clear to auscultation bilaterally Cardio regular rate and regular rhythm GI normal to inspection, nondistended, normoactive bowel sounds, non-tender and non-distended Extremity normal capillary refill General Extremity: Negative for edema Skin no rashes or lesions noted General Skin Exam: no breakdown Psych affect normal Appearance: appropriate Results Lab / Micro Data 02/28/24 07:14 02/28/24 07:14 Assessment & Plan Assessment/Plan (1) Debility: (2) Osteoarthritis of right hip: (3) Status post total hip replacement, right: (4) Essential (primary) hypertension: (5) Hypothyroidism: PLAN: Plan 84 year old female with below past medical history underwent right total hip replacement 02/24/[address] Mills, admitted to TCU with debility, here for rehabilitation, strengthening, prior to discharge home alone. * Debility - PT/OT. * Pain - Tylenol 1000mg q6 prn pain (1-5), Oxycodone 10mg q4 prn pain (6-10). * Bowel - senna/colace 1 tablet bid, Magnesium citrate 300ml daily prn. * Adult immunization - Administer pneumonia vaccine, covid vaccine, flu vaccine as appropriate. * DVT prophylaxis - Aspirin 81mg bid thru 03/26/2024. * Hypertension - Atenolol 50mg am, 75mg qhs, Losartan 100mg qhs, Amlodipine 10mg daily. * CV prophylaxis - Aspirin 81mg MWF starting 03/29/2024. * Vitamin D deficiency - D3 200mcg daily. * Pruritus - Benadryl 25mg q6 prn. * GERD - Famotidine 20mg daily. * Hypothyroidism - Levothyroxine 150mcg/225mcg alternating, Liothyronine 5mg daily. * Macular degeneration - Healthy Eyes 1 capsule bid.
[2024-02-28] MEDS: Levothyroxine 150 MCG Tablet PO (06:24)
[2024-02-28] MEDS: oxyCODONE 5 MG Tablet PO ×3 (06:28→16:02)
[2024-02-28 07:37] LABS: Absolute Lymphocyte Count 1.74 X10^3/uL (0.83-4.51); Basophil# 0.05 X10^3/uL; Basophil% 0.5 % (0-1); Eosinophil# 0.33 X10^3/uL; Eosinophils% 3.3 % (0-5); Hematocrit 34.4 % (37-47); Hemoglobin 11.5 g/dL (12.0-15.0); Lymphocyte # 1.74 X10^3/ul (0.83-4.51); Lymphocyte % 17.2 % (19-41); Mean Corp Hgb Conc 33.4 g/dL (32-36); Mean Corpuscular Hgb 30.1 pg (27.0-32.0); Mean Corpuscular Volume 90.1 fL (81-99); Mean Platelet Vol. 11.2 fl (6.2-12.0); Monocyte# 0.97 X10^3/uL; Monocyte% 9.6 % (0-10); NRBC Flagged by Analyzer 0 % (0-5); Neutrophil # 6.99 X10^3/uL (2.7-7.7); Neutrophil % 68.9 % (47-70); Platelet Count 152 K/mm3 (150-450); RBC Distribution Width CV 14.5 % (11.6-14.6); RBC Distribution Width SD 47.5 fl (35.1-43.9); Red Blood Count 3.82 M/mm3 (4.2-5.4); White Blood Count 10.1 K/mm3 (4.4-11.0)
[2024-02-28 07:59] LABS: Anion Gap 6 (5-15); BUN 29 mg/dL (7-18); Calcium,Total 9.8 mg/dL (8.5-10.1); Chloride 103 mmol/L (98-107); EST Glomerular Filtration Rate 56 mL/min (>60); Est Glom Filt Rate - Afr Amer 68 mL/min (>60); Estimated Creatinine Clearance 42.11 ml/min; Glucose 125 mg/dL (74-106); Potassium 4.1 mmol/L (3.5-5.1); Sodium Level 136 mmol/L (136-145)
[2024-02-28 08:08] VITALS: BP 167/65; PULSE 70; RESP 17; TEMP 36.7; O2SAT 93
[2024-02-28] MEDS: Aspirin 81 MG TAB.CHEW PO ×2 (08:12→16:02)
[2024-02-28] MEDS: Multivitamin (Healthy Eyes) Capsule 1 CAP PO ×2 (08:12→20:48)
[2024-02-28] MEDS: Liothyronine 5 MCG Tablet PO (08:13)
[2024-02-28] MEDS: Senna/Docusate Sodium 1 Tablet PO (08:14)
[2024-02-28] MEDS: Atenolol 50 MG Tablet PO (08:14)
[2024-02-28] MEDS: Famotidine 20 MG Tablet PO (08:14)
[2024-02-28] MEDS: amLODIPine 10 MG Tablet PO (08:14)
[2024-02-28] MEDS: Cholecalciferol (Vit D3) 125 MCG CAPSULE (5,000 UNITS) PO (08:15)
[2024-02-28] MEDS: Acetaminophen 500 MG Tablet 1000 MG PO (08:22)
[2024-02-28 10:34] VITALS: BP 148/63; PULSE 67
[2024-02-28] MEDS: Tuberculin,Purif.prot.deriv. 50 TU/ML Vial 0.1 ML ID (10:36)
[2024-02-28] MEDS: Cholecalciferol (VIT D3) 25 MCG TABLET (1,000 UNITS) 75 MCG PO (10:36)
--- NOTE | 2024-02-28 17:12 | NURSING ---
Call placed to Dr. Garcia. Patient c/o pain 03/20 this shift. PRN Oxycodone 5mg PO ineffective. Patient also having firm BMs. New order to increase Oxycodone to 10mg PO Q4H PRN and increase senna 2 tabs PO BID.
[2024-02-28] MEDS: Losartan Potassium 100 MG Tablet PO (20:48)
[2024-02-28] MEDS: Atenolol 25 MG Tablet 75 MG PO (20:48)
[2024-02-28] MEDS: Senna/Docusate Sodium 1 Tablet 2 TABLET PO (20:49)
[2024-02-28] MEDS: oxyCODONE 5 MG Tablet 10 MG PO (20:50)
[2024-02-28 20:51] VITALS: BP 145/56; PULSE 74
--- NOTE | 2024-02-29 00:03 | NURSING ---
Daughter brought a copy of resident's Living Will and Durable HPOA for Healthcare. Placed in filing bin.
[2024-02-29] MEDS: oxyCODONE 5 MG Tablet 10 MG PO ×3 (05:46→22:40)
[2024-02-29] MEDS: Levothyroxine 150 MCG Tablet PO (05:46)
[2024-02-29 08:40] VITALS: BP 140/49; PULSE 70; RESP 17; TEMP 36.6; O2SAT 94
[2024-02-29] MEDS: Liothyronine 5 MCG Tablet PO (08:43)
[2024-02-29] MEDS: Aspirin 81 MG TAB.CHEW PO ×2 (08:43→17:23)
[2024-02-29] MEDS: Multivitamin (Healthy Eyes) Capsule 1 CAP PO ×2 (08:43→22:41)
[2024-02-29] MEDS: Famotidine 20 MG Tablet PO (08:44)
[2024-02-29] MEDS: Senna/Docusate Sodium 1 Tablet 2 TABLET PO ×2 (08:44→22:41)
[2024-02-29] MEDS: amLODIPine 10 MG Tablet PO (08:44)
[2024-02-29] MEDS: Cholecalciferol (VIT D3) 25 MCG TABLET (1,000 UNITS) 75 MCG PO (08:45)
[2024-02-29] MEDS: Atenolol 50 MG Tablet PO (08:45)
[2024-02-29] MEDS: Cholecalciferol (Vit D3) 125 MCG CAPSULE (5,000 UNITS) PO (08:46)
[2024-02-29 22:39] VITALS: BP 138/51; PULSE 79; RESP 16; TEMP 36.6; O2SAT 96
[2024-02-29] MEDS: Losartan Potassium 100 MG Tablet PO (22:42)
[2024-02-29] MEDS: Atenolol 25 MG Tablet 75 MG PO (22:46)
[2024-03-01] MEDS: Levothyroxine 150 MCG Tablet 225 MCG PO (06:01)
[2024-03-01] MEDS: oxyCODONE 5 MG Tablet 10 MG PO ×3 (06:02→21:09)
[2024-03-01] MEDS: Cholecalciferol (Vit D3) 125 MCG CAPSULE (5,000 UNITS) PO (08:32)
[2024-03-01] MEDS: Senna/Docusate Sodium 1 Tablet 2 TABLET PO ×2 (08:32→21:05)
[2024-03-01] MEDS: Liothyronine 5 MCG Tablet PO (08:32)
[2024-03-01] MEDS: Famotidine 20 MG Tablet PO (08:32)
[2024-03-01] MEDS: amLODIPine 10 MG Tablet PO (08:32)
[2024-03-01] MEDS: Multivitamin (Healthy Eyes) Capsule 1 CAP PO ×2 (08:32→21:05)
[2024-03-01] MEDS: Acetaminophen 500 MG Tablet 1000 MG PO ×3 (08:34→21:06)
[2024-03-01] MEDS: Cholecalciferol (VIT D3) 25 MCG TABLET (1,000 UNITS) 75 MCG PO (08:34)
[2024-03-01] MEDS: Atenolol 50 MG Tablet PO (08:34)
[2024-03-01] MEDS: Aspirin 81 MG TAB.CHEW PO ×2 (08:35→17:12)
--- NOTE | 2024-03-01 10:02 | PCM.PN.DRR ---
TCU RX Drug Regimen Review Subjective/Objective Subjective/Objective: Subjective: 84 YOF admitted to TCU on 02/27/24 s/p hospitalization at an outside facility for a right hip arthroplasty. Admitted to TCU for strengthening and rehabilitation prior to discharge home where she resides alone. Objective: Allergies levofloxacin (From Levaquin) Allergy (Verified 07/15/22 11:22) Unknown morphine Allergy (Verified 07/15/22 11:22) Itching prednisone Allergy (Verified 07/15/22 11:22) Swelling celecoxib (From Celebrex) Adverse Reaction (Verified 07/15/22 11:22) Upset Stomach hydrochlorothiazide Adverse Reaction (Verified 07/15/22 11:22) DIZZINESS niacin Adverse Reaction (Verified 07/15/22 11:22) HOT FLASHES pitavastatin (From Livalo) Adverse Reaction (Verified 07/15/22 11:22) MUSCLE ACHES Current Medications Generic Name Dose Route Start Last Admin Trade Name Freq PRN Reason Stop Dose Admin Acetaminophen 1,000 mg 03/01/24 14:00 Acetaminophen 500 Mg Tablet PO Q8 [facility] Amlodipine Besylate 10 mg 02/28/24 10:00 03/01/24 08:32 Amlodipine 10 Mg Tablet PO 10 mg DAILY [facility] Administration Protocol Aspirin 81 mg 02/28/24 08:00 03/01/24 08:35 Aspirin 81 Mg Tab.Chew PO 03/26/24 17:01 81 mg BIDCM MECHE Administration Aspirin 81 mg 03/29/24 08:00 Aspirin E.C. 81 Mg Tablet PO [id number] [facility] Atenolol 75 mg 02/27/24 22:00 02/29/24 22:46 Atenolol 25 Mg Tablet PO 75 mg QHS [facility] Administration Protocol Atenolol 50 mg 02/28/24 10:00 03/01/24 08:34 Atenolol 50 Mg Tablet PO 50 mg DAILY [facility] Administration Protocol Cholecalciferol 125 mcg 02/28/24 10:00 03/01/24 08:32 Cholecalciferol (Vit D3) 125 Mcg Capsule (5,000 Units) PO 125 mcg DAILY MECHE Administration Cholecalciferol 75 mcg 02/28/24 10:00 03/01/24 08:34 Cholecalciferol (Vit D3) 25 Mcg Tablet (1,000 Units) PO 75 mcg DAILY [facility] Administration Diphenhydramine HCl 25 mg 02/27/24 18:46 Diphenhydramine 25 Mg Capsule PO Q6H PRN itching Famotidine 20 mg 02/28/24 10:00 03/01/24 08:32 Famotidine 20 Mg Tablet PO 20 mg DAILY MECHE Administration Levothyroxine Sodium 150 mcg 02/28/24 06:00 02/29/24 05:46 Levothyroxine 150 Mcg Tablet PO 150 mcg [id number] MECHE Administration Levothyroxine Sodium 225 mcg 03/01/24 06:00 03/01/24 06:01 Levothyroxine 150 Mcg Tablet PO 225 mcg [id number] [facility] Administration Liothyronine Sodium 5 mcg 02/28/24 10:00 03/01/24 08:32 Liothyronine 5 Mcg Tablet PO 5 mcg DAILY MECHE Administration Losartan Potassium 100 mg 02/27/24 22:00 02/29/24 22:42 Losartan Potassium 100 Mg Tablet PO 100 mg QHS MECHE Administration Protocol Magnesium Citrate 300 ml 02/27/24 22:25 Magnesium Citrate 300 Ml PO DAILY PRN Constipation Multivitamins/Minerals 1 cap 02/27/24 22:00 03/01/24 08:32 Multivitamin (Healthy Eyes) Capsule PO 1 cap BID MECHE Administration Oxycodone HCl 10 mg 02/28/24 17:12 03/01/24 06:02 Oxycodone 5 Mg Tablet PO 03/03/24 18:52 10 mg Q4H PRN PRN Administration Pain Score 6-10 or Pre PT/OT Senna/Docusate Sodium 2 tablet 02/28/24 22:00 03/01/24 08:32 Senna/Docusate Sodium 1 Tablet PO 2 tablet BID MECHE Administration Tuberculin PPD 0.1 ml 03/06/24 10:00 Tuberculin,Purif.Prot.Deriv. 50 Tu/Ml Vial ID 03/06/24 10:01 X1 ONE Problem List Essential (primary) hypertension (Acute) Status post total hip replacement, right (Acute) Osteoarthritis of right hip (Acute) Debility (Acute) Hypothyroidism (Chronic) Vital Signs Temp Pulse Resp BP Pulse Ox O2 Del Method 97.8 F 79 16 138/51 H 96 Room Air 02/29/24 22:39 02/29/24 22:39 02/29/24 22:39 02/29/24 22:39 02/29/24 22:39 02/29/24 22:39 Oxygen Delivery Method Room Air Weight: 87.543 kg Body Mass Index (BMI) 36.4 Sodium 136 mmol/L (136-145) 02/28/24 07:14 Potassium 4.1 mmol/L (3.5-5.1) 02/28/24 07:14 Chloride 103 mmol/L (98-107) 02/28/24 07:14 Carbon Dioxide 27.0 mmol/L (21.0-32.0) 02/28/24 07:14 Anion Gap 6 (5-15) 02/28/24 07:14 BUN 29 mg/dL (7-18) H 02/28/24 07:14 Creatinine 1.00 mg/dL (0.55-1.02) 02/28/24 07:14 Est GFR (MDRD) Af Amer 68 mL/min (>60) 02/28/24 07:14 Est GFR (MDRD) Non-Af 56 mL/min (>60) L 02/28/24 07:14 BUN/Creatinine Ratio 29.0 RATIO (10-20) H 02/28/24 07:14 Glucose 125 mg/dL (74-106) H 02/28/24 07:14 Assessment/Plan: 1. Pain: Tylenol 1000mg PO Q8h, Oxycodone 10mg PO Q4h PRN Pain 6-10. Please continue to monitor for increased/decreased S/S pain, PRN medication usage, respiratory depression, constipation, oversedation with narcotic use. -To date, the patient has gotten 5 doses of PRN Oxycodone for pain rated 7-8/10. Post-admin pain rated 0/10. Of note, the patient's tylenol was changed this morning from PRN to scheduled. This should help assist with analgesic control at this time. 2. Post-OP DVT Prophylaxis: Aspirin 81mg PO BID thru 03/26/24 then start aspirin 81mg PO // thereafter. Please continue to monitor for S/S of developing blood clot, H/H (hgb 11.5, hct 34.4 on 02/27), platelet count (152 on 02/27), S/S bleeding/bruising. 3. HTN: Norvasc 10mg PO Daily, Atenolol 50mg PO QAM and 75mg PO QHS, Losartan 100mg PO QHS. Please continue to monitor HR (range 67-79 BPM), blood pressure (range 138-148/ 51-63), renal function (est CrCl 42mL/min on 02/27). 4. Hypothyroidism: Synthroid 225mcg PO M/W/ and 150mcg PO all other days of the week, Liothyronine 5mcg PO Daily. Please continue to monitor TSH (last done in 2017 per EMR review), S/S hyper/hypothyroidism. 5. GERD: Pepcid 20mg PO Daily. Please continue to monitor for medications effectiveness, renal function (last CrCl 42mL/min on 02/27). Please also automobile travel club counselor patient on non-pharmacologic treatments to help reduce GERD flare-ups. 6. Pruritus: Benadryl 25mg PO Q6h PRN Itching. Pleas continue to monitor closely for S/S oversedation, medication effectiveness. -The patient has not required any PRN doses of medication at this time. 7. General Wellness: Vitamin D 200mcg PO Daily, Healthy Eye MVI 1 cap PO BID. 8. Bowel: Senna/Docusate 1 tab PO BID, Magnesium Citrate 300mL PO Daily PRN. Please continue to monitor for increased/decreased constipation and/or diarrhea. - The patient had a documented BM on 02/29/24 and is taking scheduled medications as intended. Assessment/Plan for indications treated with psychotropic medications: -The patient is not currently being maintained on any psychotropic medications at time of medication list reivew. Medical chart and medication regimen reviewed. The following medication irregularities or issues were identified: 1. Hypothyroidism: The patient is currently taking both Synthroid and Liothyronine for management of hypothyroid. Last TSH on file per EMR review was form 2017. Please consider obtaining an additional TSH level if clinically indicated, thank you. Date Date of Note:: 03/01/24
--- NOTE | 2024-03-01 12:36 | NURSING ---
Patternmaker All Around Note; Activity Asset: Lotus Cisneros is independent in her choice of daily activities w/reminders. She watches tv, read, work on word puzzles and visits w/family, friends and the buddhism. Staff will encourage social activities, remind her of weekly activities and respect her right to say no.
--- NOTE | 2024-03-01 14:14 | CASEMGMT ---
Social Work SW met with patient to complete initial assessment. Introduced self and role. Verified contacts. Patient confirmed code status as full code. Educated to [facility] insurance with NRD 03/11 and continued stay is not guaranteed with each review. Pt's goal is to return home alone. SW will continue to follow for DC planning. MERVIN JoshiW
[2024-03-01 15:13] VITALS: BP 145/57; PULSE 65; RESP 18; TEMP 36.5; O2SAT 96
[2024-03-01 19:46] VITALS: RESP 17
[2024-03-01] MEDS: Losartan Potassium 100 MG Tablet PO (21:05)
[2024-03-01] MEDS: Atenolol 25 MG Tablet 75 MG PO (21:05)
[2024-03-01 21:07] VITALS: BP 142/57; PULSE 65
[2024-03-02] MEDS: Acetaminophen 500 MG Tablet 1000 MG PO ×3 (05:22→21:17)
[2024-03-02] MEDS: oxyCODONE 5 MG Tablet 10 MG PO ×3 (05:22→18:25)
[2024-03-02] MEDS: Levothyroxine 150 MCG Tablet PO (05:22)
[2024-03-02] MEDS: Famotidine 20 MG Tablet PO (09:21)
[2024-03-02] MEDS: amLODIPine 10 MG Tablet PO (09:21)
[2024-03-02] MEDS: Senna/Docusate Sodium 1 Tablet 2 TABLET PO (09:22)
[2024-03-02] MEDS: Atenolol 50 MG Tablet PO (09:22)
[2024-03-02] MEDS: Multivitamin (Healthy Eyes) Capsule 1 CAP PO ×2 (09:22→21:18)
[2024-03-02] MEDS: Cholecalciferol (Vit D3) 125 MCG CAPSULE (5,000 UNITS) PO (09:22)
[2024-03-02] MEDS: Cholecalciferol (VIT D3) 25 MCG TABLET (1,000 UNITS) 75 MCG PO (09:22)
[2024-03-02] MEDS: Aspirin 81 MG TAB.CHEW PO ×2 (09:22→18:22)
[2024-03-02] MEDS: Liothyronine 5 MCG Tablet PO (09:22)
[2024-03-02 09:24] VITALS: BP 143/54; PULSE 64
[2024-03-02 10:29] VITALS: BMI 36.1
[2024-03-02 14:10] VITALS: BP 132/60; PULSE 62; RESP 14; TEMP 36.5; O2SAT 98
[2024-03-02] MEDS: Atenolol 25 MG Tablet 75 MG PO (21:19)
[2024-03-02] MEDS: Losartan Potassium 100 MG Tablet PO (21:19)
[2024-03-02 21:21] VITALS: BP 129/48; PULSE 66
[2024-03-03] MEDS: Levothyroxine 150 MCG Tablet 225 MCG PO (05:15)
[2024-03-03] MEDS: Acetaminophen 500 MG Tablet 1000 MG PO ×3 (05:15→22:31)
--- NOTE | 2024-03-03 05:23 | NURSING ---
Surgical mepliex removed per dr order. Incision well approximated and without redness, warmth, or swelling. Sutures intact to both sides of incision. Informed resident if she would like a DSD applied if her clothing and/or attends irritates the incision to notify staff.
[2024-03-03] MEDS: Cholecalciferol (VIT D3) 25 MCG TABLET (1,000 UNITS) 75 MCG PO (09:19)
[2024-03-03] MEDS: Cholecalciferol (Vit D3) 125 MCG CAPSULE (5,000 UNITS) PO (09:19)
--- NOTE | 2024-03-03 09:21 | CASEMGMT ---
Social Work BIMS () and PHQ-9 (06/06) completed for MDS assessment. SW explored positive responses. Pt explains her decline in interest in doing things and feeling tired are d/t admission. Pt is looking forward to returning home and denied any interventions during stay. SW will continue to monitor. MERVIN JoshiW
[2024-03-03] MEDS: Senna/Docusate Sodium 1 Tablet 2 TABLET PO ×2 (09:22→22:30)
[2024-03-03] MEDS: Famotidine 20 MG Tablet PO (09:22)
[2024-03-03] MEDS: Atenolol 50 MG Tablet PO (09:23)
[2024-03-03] MEDS: Liothyronine 5 MCG Tablet PO (09:23)
[2024-03-03] MEDS: amLODIPine 10 MG Tablet PO (09:23)
[2024-03-03] MEDS: Aspirin 81 MG TAB.CHEW PO ×2 (09:23→17:39)
[2024-03-03] MEDS: Multivitamin (Healthy Eyes) Capsule 1 CAP PO ×2 (09:23→22:31)
[2024-03-03 09:26] VITALS: BP 146/57; PULSE 67
--- NOTE | 2024-03-03 14:15 | CASEMGMT ---
Addendum entered by Gloria Kohler 03/04/24 08:16: Received VM from dtr, Marylou, stating family and pt discussed pt's continued stay and all in agreement for pt to remain in TCU until insurance issues DC date for continued intensive therapy. Original Note: Social Work IDT met with patient, two dtrs and son for care plan meeting. Discussed patient's progress for PT/OT/SN. Educated to [facility] insurance with NRD 03/11 and continued stay is not guaranteed with each review. Provided pt/family written communication on insurance process and copay coverage during stay. SW inquired about DC plans and needs. Educated to [facility] vs OP PT. Pt states she has a walker at home and has no DME needs. Pt has f/u appt on 03/11 and family encouraging to remain for continued therapy until insurance issues DC/after appt. Pt unsure she wants to stay until appt. Family requested to discuss with pt privately and will notify this worker of potential DC date. SW agreed. Will continue to follow. Gloria Kohler, MERVIN HOT CELL TECHNICIAN
--- NOTE | 2024-03-03 18:45 | NURSING ---
Addendum entered by David Mckeon 03/03/24 18:52: WRONG PT. Original Note: AID CAME TO THIS NURSE AND STATED PT WAS NOT FEELING GOOD AND DIZZY AND HEADACHE AFTER USING BATHROOM AND HAVING LOOSE STOOL. VITALS SIGNS DONE AND BLOOD SUGAR TAKEN,LUNGS CLEAR. WILL CONTINUE TO MONITOR. RN AWARE
[2024-03-03 20:38] VITALS: PULSE 68; RESP 16; O2SAT 95
[2024-03-03 22:29] VITALS: BP 145/54; PULSE 72
[2024-03-03] MEDS: Atenolol 25 MG Tablet 75 MG PO (22:31)
[2024-03-03] MEDS: Losartan Potassium 100 MG Tablet PO (22:32)
[2024-03-03] MEDS: Menthol/Lanolin/Calamine/Znox 113 GM Tube 1 APPLIC TOPICAL (22:32)
[2024-03-04] MEDS: Acetaminophen 500 MG Tablet 1000 MG PO ×3 (05:46→20:15)
[2024-03-04] MEDS: Levothyroxine 150 MCG Tablet PO (05:46)
[2024-03-04 05:53] VITALS: PULSE 70; RESP 18; O2SAT 96
[2024-03-04 08:44] VITALS: BP 152/64; PULSE 65; RESP 17; TEMP 36.2; O2SAT 98
[2024-03-04] MEDS: Multivitamin (Healthy Eyes) Capsule 1 CAP PO ×2 (08:47→20:16)
[2024-03-04] MEDS: Aspirin 81 MG TAB.CHEW PO ×2 (08:47→17:29)
[2024-03-04] MEDS: amLODIPine 10 MG Tablet PO (08:48)
[2024-03-04] MEDS: Atenolol 50 MG Tablet PO (08:48)
[2024-03-04] MEDS: Liothyronine 5 MCG Tablet PO (08:48)
[2024-03-04] MEDS: Famotidine 20 MG Tablet PO (08:48)
[2024-03-04] MEDS: Cholecalciferol (VIT D3) 25 MCG TABLET (1,000 UNITS) 75 MCG PO (08:49)
[2024-03-04] MEDS: Cholecalciferol (Vit D3) 125 MCG CAPSULE (5,000 UNITS) PO (08:49)
[2024-03-04] MEDS: Menthol/Lanolin/Calamine/Znox 113 GM Tube 1 APPLIC TOPICAL ×2 (08:53→20:16)
--- NOTE | 2024-03-04 11:21 | MDS.RN ---
MDS pain interview completed.
[2024-03-04] MEDS: oxyCODONE 5 MG Tablet PO ×2 (13:16→20:14)
--- NOTE | 2024-03-04 14:40 | NURSING ---
Offered covid vaccine, VIS provided. Patient refuses at this time.
--- NOTE | 2024-03-04 18:08 | NURSING ---
Patient requesting Senna to be changed to PRN. Updated Dr. Garcia. New order placed.
[2024-03-04] MEDS: Atenolol 25 MG Tablet 75 MG PO (20:15)
[2024-03-04] MEDS: Losartan Potassium 100 MG Tablet PO (20:16)
[2024-03-04 20:19] VITALS: BP 140/54; PULSE 68
[2024-03-05] MEDS: oxyCODONE 5 MG Tablet PO ×3 (05:37→21:22)
[2024-03-05] MEDS: Acetaminophen 500 MG Tablet 1000 MG PO ×3 (05:38→21:25)
[2024-03-05] MEDS: Levothyroxine 150 MCG Tablet 225 MCG PO (05:38)
[2024-03-05 06:07] LABS: Absolute Lymphocyte Count 1.98 X10^3/uL (0.83-4.51); Absolute Neutrophil Count 8.8 X10^3/uL (2.0-7.7); Basophil# 0.06 X10^3/uL; Basophil% 0.5 % (0-1); Eosinophil# 0.36 X10^3/uL; Eosinophils% 2.9 % (0-5); Hematocrit 32.9 % (37-47); Hemoglobin 10.7 g/dL (12.0-15.0); Lymphocyte # 1.98 X10^3/ul (0.83-4.51); Lymphocyte % 16.2 % (19-41); Mean Corp Hgb Conc 32.5 g/dL (32-36); Mean Corpuscular Hgb 29.5 pg (27.0-32.0); Mean Corpuscular Volume 90.6 fL (81-99); Mean Platelet Vol. 10.7 fl (6.2-12.0); Monocyte# 0.92 X10^3/uL; Monocyte% 7.5 % (0-10); NRBC Flagged by Analyzer 0 % (0-5); Neutrophil # 8.78 X10^3/uL (2.7-7.7); Neutrophil % 71.9 % (47-70); Platelet Count 262 K/mm3 (150-450); RBC Distribution Width CV 14.3 % (11.6-14.6); RBC Distribution Width SD 47.4 fl (35.1-43.9); Red Blood Count 3.63 M/mm3 (4.2-5.4); White Blood Count 12.2 K/mm3 (4.4-11.0)
[2024-03-05 06:32] LABS: Anion Gap 5 (5-15); BUN 33 mg/dL (7-18); BUN/Creat Ratio 29.7 RATIO (10-20); Calcium,Total 9.5 mg/dL (8.5-10.1); Chloride 108 mmol/L (98-107); Creatinine, Serum 1.11 mg/dL (0.55-1.02); EST Glomerular Filtration Rate 50 mL/min (>60); Est Glom Filt Rate - Afr Amer 60 mL/min (>60); Estimated Creatinine Clearance 37.77 ml/min; Glucose 114 mg/dL (74-106); Sodium Level 139 mmol/L (136-145)
[2024-03-05] MEDS: Aspirin 81 MG TAB.CHEW PO ×2 (08:07→17:53)
--- NOTE | 2024-03-05 08:19 | NURSING ---
Patient updated about new orders for antibiotics. Patient verbalized understanding. Will continue to monitor.
--- NOTE | 2024-03-05 09:10 | NURSING ---
Door Person Note; MDS for 03/05/2024 Complete
[2024-03-05] MEDS: Cephalexin 500 MG Capsule PO ×2 (10:28→21:23)
[2024-03-05] MEDS: Doxycycline 100 MG CAPSULE PO ×2 (10:28→21:22)
[2024-03-05] MEDS: Multivitamin (Healthy Eyes) Capsule 1 CAP PO ×2 (10:29→21:23)
[2024-03-05] MEDS: Liothyronine 5 MCG Tablet PO (10:29)
[2024-03-05] MEDS: amLODIPine 10 MG Tablet PO (10:29)
[2024-03-05] MEDS: Famotidine 20 MG Tablet PO (10:30)
[2024-03-05] MEDS: Atenolol 50 MG Tablet PO (10:30)
[2024-03-05] MEDS: Cholecalciferol (Vit D3) 125 MCG CAPSULE (5,000 UNITS) PO (10:30)
[2024-03-05] MEDS: Cholecalciferol (VIT D3) 25 MCG TABLET (1,000 UNITS) 75 MCG PO (10:30)
[2024-03-05] MEDS: Menthol/Lanolin/Calamine/Znox 113 GM Tube 1 APPLIC TOPICAL ×2 (10:32→21:34)
--- NOTE | 2024-03-05 15:59 | CHAPLAIN ---
Type of Pastoral Visit _x__ Initial Visit ___ Follow-up Visit ___ On-call Visit ___ General Patient Visit ___ Spiritual Assessment ___ Family Conference ___ Bereavement ___ Rapid Response ___ Code Blue ___ Other (describe below) Pastoral Care Referral From _x__ Patient ___ Family ___ Nurse ___ Physician ___ Logistics Supply Officer ___ Examination Supervisor ___ Other (describe below) Sacrament/Intervention _x__ Active listening ___ Anointing ___ Pentecostalism ___ Bereavement ___ Communion _x__ Swapna exploration ___ _x__ Life review _x__ Prayer ___ Reconciliation ___ Sacrament of Sick _x__ Supportive presence ___ Wedding ___ Other (describe below) Pastoral Comments patient identifies her needs as patience getting through this recovery period and seeing improvement for the pain; pt talks about her life, family, and visits she has had; pt states that she only needs a prayer for now
[2024-03-05 16:00] VITALS: BP 143/81; PULSE 65; RESP 16; TEMP 36.7; O2SAT 98
[2024-03-05 19:34] VITALS: PULSE 67; RESP 16; O2SAT 96
[2024-03-05] MEDS: Atenolol 25 MG Tablet 75 MG PO (21:24)
[2024-03-05] MEDS: Losartan Potassium 100 MG Tablet PO (21:33)
[2024-03-06] MEDS: Acetaminophen 500 MG Tablet 1000 MG PO ×3 (05:36→21:12)
[2024-03-06] MEDS: Levothyroxine 150 MCG Tablet PO (05:36)
[2024-03-06 07:10] VITALS: O2SAT 95
[2024-03-06] MEDS: Aspirin 81 MG TAB.CHEW PO ×2 (08:47→17:27)
[2024-03-06] MEDS: oxyCODONE 5 MG Tablet PO ×2 (08:47→21:09)
[2024-03-06] MEDS: Cephalexin 500 MG Capsule PO ×2 (08:47→21:10)
[2024-03-06] MEDS: Doxycycline 100 MG CAPSULE PO ×2 (08:47→21:10)
[2024-03-06] MEDS: Multivitamin (Healthy Eyes) Capsule 1 CAP PO ×2 (08:47→21:11)
[2024-03-06] MEDS: Atenolol 50 MG Tablet PO (08:48)
[2024-03-06] MEDS: Famotidine 20 MG Tablet PO (08:48)
[2024-03-06] MEDS: amLODIPine 10 MG Tablet PO (08:48)
[2024-03-06] MEDS: Liothyronine 5 MCG Tablet PO (08:48)
[2024-03-06] MEDS: Cholecalciferol (Vit D3) 125 MCG CAPSULE (5,000 UNITS) PO (08:49)
[2024-03-06] MEDS: Cholecalciferol (VIT D3) 25 MCG TABLET (1,000 UNITS) 75 MCG PO (08:49)
[2024-03-06] MEDS: Menthol/Lanolin/Calamine/Znox 113 GM Tube 1 APPLIC TOPICAL ×2 (08:51→21:12)
[2024-03-06] MEDS: Tuberculin,Purif.prot.deriv. 50 TU/ML Vial 0.1 ML ID (14:14)
[2024-03-06 15:52] VITALS: BP 149/57; PULSE 88; RESP 16; TEMP 36.4; O2SAT 97
[2024-03-06] MEDS: Atenolol 25 MG Tablet 75 MG PO (21:10)
[2024-03-06] MEDS: Losartan Potassium 100 MG Tablet PO (21:11)
[2024-03-06 21:14] VITALS: BP 116/56; PULSE 64
[2024-03-07] MEDS: Levothyroxine 150 MCG Tablet PO (05:31)
[2024-03-07] MEDS: Acetaminophen 500 MG Tablet 1000 MG PO ×3 (05:31→20:51)
[2024-03-07] MEDS: oxyCODONE 5 MG Tablet PO ×3 (05:32→20:51)
[2024-03-07 05:36] VITALS: RESP 16
[2024-03-07] MEDS: Doxycycline 100 MG CAPSULE PO ×2 (10:15→20:52)
[2024-03-07] MEDS: Liothyronine 5 MCG Tablet PO (10:16)
[2024-03-07] MEDS: Famotidine 20 MG Tablet PO (10:16)
[2024-03-07] MEDS: amLODIPine 10 MG Tablet PO (10:16)
[2024-03-07] MEDS: Multivitamin (Healthy Eyes) Capsule 1 CAP PO ×2 (10:17→20:52)
[2024-03-07] MEDS: Cholecalciferol (Vit D3) 125 MCG CAPSULE (5,000 UNITS) PO (10:17)
[2024-03-07] MEDS: Aspirin 81 MG TAB.CHEW PO ×2 (10:17→17:18)
[2024-03-07] MEDS: Cephalexin 500 MG Capsule PO ×2 (10:17→20:52)
[2024-03-07] MEDS: Cholecalciferol (VIT D3) 25 MCG TABLET (1,000 UNITS) 75 MCG PO (10:18)
[2024-03-07] MEDS: Menthol/Lanolin/Calamine/Znox 113 GM Tube 1 APPLIC TOPICAL ×2 (10:19→20:53)
[2024-03-07] MEDS: Atenolol 50 MG Tablet PO (10:22)
[2024-03-07 16:00] VITALS: BP 138/59; PULSE 61; RESP 16; TEMP 36.6; O2SAT 97
[2024-03-07] MEDS: Atenolol 25 MG Tablet 75 MG PO (20:52)
[2024-03-07] MEDS: Losartan Potassium 100 MG Tablet PO (20:53)
[2024-03-07 20:59] VITALS: BP 126/79; PULSE 64
[2024-03-08] MEDS: Levothyroxine 150 MCG Tablet 225 MCG PO (05:38)
[2024-03-08] MEDS: Acetaminophen 500 MG Tablet 1000 MG PO ×3 (05:38→22:18)
[2024-03-08] MEDS: Aspirin 81 MG TAB.CHEW PO ×2 (08:24→16:18)
[2024-03-08] MEDS: Doxycycline 100 MG CAPSULE PO ×2 (08:24→22:18)
[2024-03-08] MEDS: Multivitamin (Healthy Eyes) Capsule 1 CAP PO ×2 (08:24→22:19)
[2024-03-08] MEDS: Cephalexin 500 MG Capsule PO ×2 (08:25→22:18)
[2024-03-08] MEDS: amLODIPine 10 MG Tablet PO (08:25)
[2024-03-08] MEDS: Liothyronine 5 MCG Tablet PO (08:25)
[2024-03-08] MEDS: Cholecalciferol (Vit D3) 125 MCG CAPSULE (5,000 UNITS) PO (08:26)
[2024-03-08] MEDS: Famotidine 20 MG Tablet PO (08:26)
[2024-03-08] MEDS: Atenolol 50 MG Tablet PO (08:26)
[2024-03-08] MEDS: Cholecalciferol (VIT D3) 25 MCG TABLET (1,000 UNITS) 75 MCG PO (08:27)
[2024-03-08] MEDS: oxyCODONE 5 MG Tablet PO ×3 (08:30→22:20)
[2024-03-08] MEDS: Menthol/Lanolin/Calamine/Znox 113 GM Tube 1 APPLIC TOPICAL ×2 (08:34→22:22)
[2024-03-08 08:36] VITALS: BP 158/62; PULSE 64; RESP 16; TEMP 36.4; O2SAT 98
--- NOTE | 2024-03-08 08:38 | NURSING ---
Patient c/o upset stomach this morning. Leigh Ann josh given. Will continue to monitor.
--- NOTE | 2024-03-08 17:12 | RAD_ITS ---
INDICATION: LUQ abdominal pain. EXAMINATION/TECHNIQUE: X-RAY - XR Abdomen 1 View COMPARISON: None FINDINGS: BOWEL GAS PATTERN: Non-obstructive. Extensive colonic fecal retention. FREE AIR: Not assessed on a single supine view. ORGANOMEGALY: Not seen. CALCIFICATIONS: No abnormal calcifications observed. LOWER CHEST: No acute pathology. BONES AND SOFT TISSUES: No acute pathology. RAD/Abdomen Single View IMPRESSION: Extensive colonic fecal retention consistent with clinical constipation. Electronically Signed: Madan Downing MD at 18:33 EDT ,
[2024-03-08] MEDS: Pantoprazole Sodium 40 MG Tablet PO (17:57)
[2024-03-08] MEDS: Atenolol 25 MG Tablet 75 MG PO (22:19)
[2024-03-08] MEDS: Losartan Potassium 100 MG Tablet PO (22:19)
[2024-03-08 22:23] VITALS: BP 139/52; PULSE 63
[2024-03-09] MEDS: Acetaminophen 500 MG Tablet 1000 MG PO ×3 (06:31→22:07)
[2024-03-09] MEDS: Levothyroxine 150 MCG Tablet PO (06:32)
[2024-03-09] MEDS: oxyCODONE 5 MG Tablet PO ×3 (06:33→22:11)
--- NOTE | 2024-03-09 07:40 | NURSING ---
Resident encouraged to take stool softeners, increase fluid intake- especially water, and increase intake of fresh fruits and vegetables d/t continued issues w/ constipation. Educated resident that opiod use, even at a lower dose, decreased mobility, and dietary changes all contribute to constipation.
[2024-03-09] MEDS: Cholecalciferol (VIT D3) 25 MCG TABLET (1,000 UNITS) 75 MCG PO (08:26)
[2024-03-09] MEDS: Cephalexin 500 MG Capsule PO ×2 (08:26→22:09)
[2024-03-09] MEDS: Aspirin 81 MG TAB.CHEW PO ×2 (08:26→18:02)
[2024-03-09] MEDS: Doxycycline 100 MG CAPSULE PO ×2 (08:26→22:10)
[2024-03-09] MEDS: Cholecalciferol (Vit D3) 125 MCG CAPSULE (5,000 UNITS) PO (08:26)
[2024-03-09] MEDS: Multivitamin (Healthy Eyes) Capsule 1 CAP PO ×2 (08:26→22:10)
[2024-03-09] MEDS: Magnesium Citrate 300 ML PO (08:27)
[2024-03-09] MEDS: Atenolol 50 MG Tablet PO (08:27)
[2024-03-09] MEDS: amLODIPine 10 MG Tablet PO (08:27)
[2024-03-09] MEDS: Pantoprazole Sodium 40 MG Tablet PO (08:27)
[2024-03-09] MEDS: Liothyronine 5 MCG Tablet PO (10:33)
[2024-03-09] MEDS: Menthol/Lanolin/Calamine/Znox 113 GM Tube 1 APPLIC TOPICAL (10:38)
[2024-03-09 10:45] VITALS: BMI 35.8
[2024-03-09 16:00] VITALS: BP 139/54; PULSE 66; RESP 18; TEMP 36.6; O2SAT 97
[2024-03-09] MEDS: Atenolol 25 MG Tablet 75 MG PO (22:08)
[2024-03-09] MEDS: Losartan Potassium 100 MG Tablet PO (22:11)
[2024-03-09 22:19] VITALS: BP 133/50; PULSE 63
[2024-03-10] MEDS: Levothyroxine 150 MCG Tablet 225 MCG PO (06:40)
[2024-03-10] MEDS: oxyCODONE 5 MG Tablet PO ×2 (06:41→14:07)
[2024-03-10] MEDS: Acetaminophen 500 MG Tablet 1000 MG PO ×3 (06:41→22:18)
[2024-03-10] MEDS: Aspirin 81 MG TAB.CHEW PO ×2 (08:33→17:30)
[2024-03-10] MEDS: Cephalexin 500 MG Capsule PO ×2 (08:34→22:17)
[2024-03-10] MEDS: Cholecalciferol (Vit D3) 125 MCG CAPSULE (5,000 UNITS) PO (08:34)
[2024-03-10] MEDS: Liothyronine 5 MCG Tablet PO (08:34)
[2024-03-10] MEDS: amLODIPine 10 MG Tablet PO (08:34)
[2024-03-10] MEDS: Cholecalciferol (VIT D3) 25 MCG TABLET (1,000 UNITS) 75 MCG PO (08:34)
[2024-03-10] MEDS: Doxycycline 100 MG CAPSULE PO ×2 (08:34→22:17)
[2024-03-10] MEDS: Multivitamin (Healthy Eyes) Capsule 1 CAP PO ×2 (08:34→22:17)
[2024-03-10] MEDS: Atenolol 50 MG Tablet PO (08:34)
[2024-03-10] MEDS: Pantoprazole Sodium 40 MG Tablet PO (08:34)
[2024-03-10] MEDS: Menthol/Lanolin/Calamine/Znox 113 GM Tube 1 APPLIC TOPICAL ×2 (08:35→22:14)
[2024-03-10 08:39] VITALS: BP 153/54; PULSE 64
[2024-03-10] MEDS: Senna/Docusate Sodium 1 Tablet 2 TABLET PO ×2 (11:41→22:19)
--- NOTE | 2024-03-10 12:46 | NURSING ---
Pt returned from appt with Agata Renteria N.OStephanie to discontinue BRENDAN jean continue with PT /OT WBAT for pain continue with Oxycodone 5mg 1-2 tabs twice a day q6hrs PRN pain Continue Aspirin BID for 2 more weeks. F/U with Dr. Mills in 4 weeks.
--- NOTE | 2024-03-10 14:06 | CASEMGMT ---
Social Work Pt requesting to set DC date to CONTAMINATION CONSULTANT. SW met with pt to discuss and pt requesting 03/12. IDT agreeable. Offered HHC vs OP and any DME needs. Pt requesting OP PT at [facility] and has no DME needs. Family can transport home. SW to send referral to [facility] via fax. Plan: DC home alone 03/12, [facility] OP PT MERVIN Joshi FIRE INFORMATION OFFICER
[2024-03-10 14:58] VITALS: BP 138/54; PULSE 64; RESP 18; TEMP 36.6; O2SAT 96
--- NOTE | 2024-03-10 21:06 | PCM.DC.SUM ---
Providers Date of Admission: 02/27/24 Primary Care Physician: Dr. Swapna Lowry, DO Reason For Visit: RIGHT TOTAL HIP Diagnosis Discharge Diagnosis (1) Debility: Status: Acute Code(s): R53.81 - Other malaise (2) Osteoarthritis of right hip: Status: Acute Code(s): M16.11 - Unilateral primary osteoarthritis, right hip (3) Status post total hip replacement, right: Status: Acute Code(s): Z96.641 - Presence of right artificial hip joint (4) Essential (primary) hypertension: Status: Acute Code(s): I10 - Essential (primary) hypertension (5) Hypothyroidism: Status: Chronic Code(s): E03.9 - Hypothyroidism, unspecified Plan 84 year old female with below past medical history underwent right total hip replacement 02/24/[address] Mills, admitted to TCU with debility, here for rehabilitation, strengthening, prior to discharge home alone. Debility - PT/OT. Pain - Tylenol 1000mg q6 prn pain (1-5), Oxycodone 10mg q4 prn pain (6-10). Bowel - senna/colace 1 tablet bid, Magnesium citrate 300ml daily prn. Adult immunization - Administer pneumonia vaccine, covid vaccine, flu vaccine as appropriate. DVT prophylaxis - Aspirin 81mg bid thru 03/26/2024. Hypertension - Atenolol 50mg am, 75mg qhs, Losartan 100mg qhs, Amlodipine 10mg daily. CV prophylaxis - Aspirin 81mg MWF starting 03/29/2024. Vitamin D deficiency - D3 200mcg daily. Pruritus - Benadryl 25mg q6 prn. GERD - Famotidine 20mg daily. Hypothyroidism - Levothyroxine 150mcg/225mcg alternating, Liothyronine 5mg daily. Macular degeneration - Healthy Eyes 1 capsule bid. Medications at Discharge Home Medications losartan 100 mg tablet 100 mg PO QHS BLOOD PRESSURE 07/08/17 lactobacillus combination no.9 4 billion cell capsule (Adult 50 Plus Probiotic) 4,000 mmu cells PO QDAY Probiotic 03/30/18 diphenhydramine HCl 25 mg capsule (Allergy Relief (diphenhydramine)) 25 mg PO Q6H PRN itching 06/05/20 liothyronine 5 mcg tablet 5 mcg PO DAILY Thyroid 06/05/20 vitamins A,C,V-yaju-qguwgd 4,296 mcg-226 mg-90 mg capsule (PreserVision AREDS) 1 cap PO BID Supplement 06/22/21 aspirin 81 mg tablet,delayed release 81 mg PO .3XW Heart 07/15/22 atenolol 50 mg tablet 75 mg PO QHS BLOOD PRESSURE 07/15/22 cholecalciferol (vitamin D3) 50 mcg (2,000 unit) capsule 8,000 unit PO DAILY supplement 07/15/22 levothyroxine 150 mcg tablet 150 mcg PO .COMPLEX Thyroid 07/15/22 amlodipine 10 mg tablet 10 mg PO DAILY Blood pressure 02/27/24 atenolol 50 mg tablet 50 mg PO DAILY Blood Pressure 02/27/24 acetaminophen 500 mg tablet 1,000 mg (2 x 500 mg) PO Q8 #0 tabs 03/10/24 aspirin 81 mg chewable tablet 81 mg PO BIDCM 14 days #0 tabs 03/10/24 oxycodone 5 mg tablet 5 - 10 mg (1 - 2 x 5 mg) PO Q6H PRN PRN Pain Score 6-10 Or Pre Pt/Ot 7 days #28 tabs 03/10/24 pantoprazole 40 mg tablet,delayed release 40 mg PO DAILY 30 days #30 tabs 03/10/24 sennosides 8.6 mg-docusate sodium 50 mg tablet (Stimulant Laxative Plus) 2 tab PO BID 30 days #120 tabs 03/10/24 Hospital Course Operations total hip replacement (Right.) Procedures None Summary of Care Provided Minutes Spent on Discharge: 35 Hospital Course: 84 year old female with below past medical history underwent right total hip replacement 02/24/[address] Mills, admitted to TCU with debility, here for rehabilitation, strengthening, prior to discharge home alone. Discharge home alone 03/12/2024, [facility] outpatient PT. Physical Exam Const alert General Appearance: cooperative HEENT normocephalic Eyes PERRL and EOMs intact bilaterally Neck supple, no JVD and no carotid bruits Resp normal respiratory effort, normal air movement and clear to auscultation bilaterally Cardio regular rate and regular rhythm GI normal to inspection, nondistended, normoactive bowel sounds, non-tender and non-distended Extremity normal capillary refill General Extremity: Negative for edema Skin no rashes or lesions noted General Skin Exam: no breakdown Psych affect normal Appearance: appropriate Weight / BMI Weight Weight: 86.027 kg Body Mass Index (BMI) 35.8 ABG / Lab / Microbiology Data 03/05/24 05:26 03/05/24 05:26 D/C Instructions Discharge Diet: No restrictions Discharge Activity: Return to Normal Activity, May Shower and Use Walker Weight Bearing Status: Weight bearing as tolerated Call your doctor if you observe: Fever of 101 or Higher, Inability to urinate, Inability to have a bowel movement, Shortness of breath, Dizziness, Fainting spells, Swelling in the ankles, Chest pain and Uncontrolled pain Additional Instructions: Discharge home alone 03/12/2024, [facility] outpatient P Please Follow Up With: Salazar Terrazas PA-C When: As scheduled. Meaningful Use Info Meaningful Use Meaningful Use Diagnoses (Choose all that apply): None applicable Ischemic Stroke Statin Dosing Therapy Reference: STATIN DOSE THERAPY REFERENCE: * Patients > 75 years receive moderate or high dose statin therapy. * Patients 75 years or YOUNGER should receive HIGH intensity statin dose unless contraindicated. You will be required to document reason for non-treatment if statin daily dose does not meet guidelines. HIGH DOSE STATIN THERAPY DAILY Atorvastatin > than or = to 40 mg Rosuvastatin > than or = to 20 mg Amlodipine + Atorvastatin > than or = to 2.5/40 mg Ezetimibe + Simvastatin 10/80 mg Simvastatin 80mg Discharge Plan Admission Admit Date/Time: 02/27/24 18:14 Primary Reason for Your Visit: Debility. Attending Provider: Levy Garcia Chi Primary Care Provider: Swapna Lowry Instructions Additional Instructions / Restrictions: Discharge home alone 03/12/2024, [facility] outpatient P Discharge Orders/Prescriptions Prescriptions: New sennosides-docusate sodium [Stimulant Laxative Plus] 8.6-50 mg Tablet 2 tab PO BID 30 Days Qty: 120 0RF acetaminophen 500 mg Tablet 1,000 mg PO Q8 Qty: 0 0RF pantoprazole 40 mg Tablet,Delayed Release (Dr/Ec) 40 mg PO DAILY 30 Days Qty: 30 0RF aspirin 81 mg Tablet,Chewable 81 mg PO BIDCM 14 Days Qty: 0 0RF oxycodone 5 mg Tablet 5 - 10 mg PO Q6H PRN PRN (Reason: Pain Score 6-10 Or Pre Pt/Ot) 7 Days Qty: 28 0RF Continued Adult 50 Plus Probiotic 4 billion cell capsule 4,000 mmu cells PO QDAY diphenhydramine HCl [Allergy Relief(diphenhydramin)] 25 mg capsule 25 mg PO Q6H PRN (Reason: itching) liothyronine 5 mcg tablet 5 mcg PO DAILY PreserVision AREDS [id number] capsule 1 cap PO BID levothyroxine 150 mcg tablet 150 mcg PO .COMPLEX Rx Instructions: 150 mcg orally take 1 tab by mouth daily except take 1.5 tabs MWF; aspirin 81 mg tablet,delayed release (DR/EC) 81 mg PO .3XW losartan 100 MG tablet 100 mg PO QHS atenolol 50 mg tablet 75 mg PO QHS cholecalciferol (vitamin D3) 50 mcg (2,000 unit) capsule 8,000 unit PO DAILY atenolol 50 mg tablet 50 mg PO DAILY amlodipine 10 mg tablet 10 mg PO DAILY Discontinued naproxen sodium [Aleve] 220 mg tablet 220 mg PO BID PRN Plexus Xfactor 2 tab PO DAILY aspirin 81 mg tablet,chewable 1 tab PO BID docusate sodium [Colace] 100 mg capsule 100 mg PO BID sennosides-docusate sodium [Senna Plus] 8.6-50 mg tablet 1 tab-cap PO BID PRN (Reason: Constipation) famotidine [Pepcid] 20 mg tablet 20 mg PO DAILY magnesium hydroxide [Milk of Magnesia] 400 mg/5 mL suspension 30 ml PO DAILY oxycodone 5 mg capsule See Rx Instructions .ROUTE .COMPLEX PRN (Reason: Pain1-10) Rx Instructions: 5-10mg PRN; Referrals / Follow Up: Swapna Lowry DO [Primary Care Provider] - 03/19/24 2:00 pm (appt with MARISELA Harper) Torres Mills MD [Med Staff - Active Staff] - (4 week f/u) Disposition Disposition (needs filled in before D/C Order can be placed): Home, Self Care
[2024-03-10] MEDS: Losartan Potassium 100 MG Tablet PO (22:16)
[2024-03-10] MEDS: Atenolol 25 MG Tablet 75 MG PO (22:17)
[2024-03-10 22:23] VITALS: BP 130/62; PULSE 61
[2024-03-11] MEDS: Acetaminophen 500 MG Tablet 1000 MG PO ×3 (05:33→21:34)
[2024-03-11] MEDS: Levothyroxine 150 MCG Tablet PO (05:33)
[2024-03-11 09:08] VITALS: BP 132/55; PULSE 65; RESP 16; TEMP 36.6; O2SAT 97
[2024-03-11] MEDS: Pantoprazole Sodium 40 MG Tablet PO (09:09)
[2024-03-11] MEDS: Cephalexin 500 MG Capsule PO ×2 (09:10→21:33)
[2024-03-11] MEDS: Cholecalciferol (VIT D3) 25 MCG TABLET (1,000 UNITS) 75 MCG PO (09:11)
[2024-03-11] MEDS: Multivitamin (Healthy Eyes) Capsule 1 CAP PO ×2 (09:11→21:33)
[2024-03-11] MEDS: Doxycycline 100 MG CAPSULE PO ×2 (09:11→21:34)
[2024-03-11] MEDS: Aspirin 81 MG TAB.CHEW PO ×2 (09:11→16:38)
[2024-03-11] MEDS: Liothyronine 5 MCG Tablet PO (09:12)
[2024-03-11] MEDS: Atenolol 50 MG Tablet PO (09:12)
[2024-03-11] MEDS: Senna/Docusate Sodium 1 Tablet 2 TABLET PO ×2 (09:12→21:33)
[2024-03-11] MEDS: Cholecalciferol (Vit D3) 125 MCG CAPSULE (5,000 UNITS) PO (09:12)
[2024-03-11] MEDS: amLODIPine 10 MG Tablet PO (09:13)
[2024-03-11] MEDS: Menthol/Lanolin/Calamine/Znox 113 GM Tube 1 APPLIC TOPICAL ×2 (09:15→21:35)
[2024-03-11] MEDS: oxyCODONE 5 MG Tablet PO ×2 (09:20→21:32)
--- NOTE | 2024-03-11 10:07 | MDS.RN ---
Pain interview for MDS completed.
--- NOTE | 2024-03-11 11:58 | MDS.RN ---
Information for the MDS was obtained from review of the clinical record, interview of resident, staff, and direct observation of resident?s care.
[2024-03-11 16:00] VITALS: RESP 18
--- NOTE | 2024-03-11 16:33 | CASEMGMT ---
BIMS () and PHQ9 (0) interviews completed on this date for MDS assessment. LINCOLN Husain
--- NOTE | 2024-03-11 16:39 | NURSING ---
Pt states that her PCP told her she is up-to-date on pneumococcal vaccines, refuses receiving any while here on unit.
[2024-03-11 21:30] VITALS: BP 126/59; PULSE 61; RESP 16
[2024-03-11] MEDS: Losartan Potassium 100 MG Tablet PO (21:34)
[2024-03-11] MEDS: Atenolol 25 MG Tablet 75 MG PO (21:34)
[2024-03-12] MEDS: Acetaminophen 500 MG Tablet 1000 MG PO (06:22)
[2024-03-12] MEDS: Levothyroxine 150 MCG Tablet 225 MCG PO (06:23)
[2024-03-12 06:29] VITALS: PULSE 74; RESP 16
[2024-03-12 06:31] LABS: Absolute Lymphocyte Count 1.74 X10^3/uL (0.83-4.51); Absolute Neutrophil Count 5.7 X10^3/uL (2.0-7.7); Basophil# 0.06 X10^3/uL; Basophil% 0.7 % (0-1); Eosinophil# 0.39 X10^3/uL; Eosinophils% 4.4 % (0-5); Hemoglobin 11.1 g/dL (12.0-15.0); Lymphocyte # 1.74 X10^3/ul (0.83-4.51); Lymphocyte % 19.8 % (19-41); Mean Corp Hgb Conc 31.7 g/dL (32-36); Mean Corpuscular Hgb 29.1 pg (27.0-32.0); Mean Corpuscular Volume 91.9 fL (81-99); Mean Platelet Vol. 10.6 fl (6.2-12.0); Monocyte# 0.83 X10^3/uL; Monocyte% 9.5 % (0-10); NRBC Flagged by Analyzer 0 % (0-5); Neutrophil # 5.72 X10^3/uL (2.7-7.7); Neutrophil % 65.1 % (47-70); Platelet Count 305 K/mm3 (150-450); RBC Distribution Width CV 14.4 % (11.6-14.6); RBC Distribution Width SD 48.5 fl (35.1-43.9); Red Blood Count 3.81 M/mm3 (4.2-5.4); White Blood Count 8.8 K/mm3 (4.4-11.0)
[2024-03-12 07:13] LABS: Anion Gap 7 (5-15); BUN 34 mg/dL (7-18); Calcium,Total 9.2 mg/dL (8.5-10.1); Chloride 109 mmol/L (98-107); Creatinine, Serum 1.31 mg/dL (0.55-1.02); EST Glomerular Filtration Rate 41 mL/min (>60); Est Glom Filt Rate - Afr Amer 50 mL/min (>60); Estimated Creatinine Clearance 31.84 ml/min; Glucose 111 mg/dL (74-106); Potassium 3.9 mmol/L (3.5-5.1); Sodium Level 139 mmol/L (136-145)
[2024-03-12] MEDS: Senna/Docusate Sodium 1 Tablet 2 TABLET PO (09:26)
[2024-03-12] MEDS: Cephalexin 500 MG Capsule PO (09:26)
[2024-03-12] MEDS: Cholecalciferol (VIT D3) 25 MCG TABLET (1,000 UNITS) 75 MCG PO (09:26)
[2024-03-12] MEDS: Multivitamin (Healthy Eyes) Capsule 1 CAP PO (09:27)
[2024-03-12] MEDS: Liothyronine 5 MCG Tablet PO (09:27)
[2024-03-12] MEDS: amLODIPine 10 MG Tablet PO (09:27)
[2024-03-12] MEDS: Doxycycline 100 MG CAPSULE PO (09:27)
[2024-03-12] MEDS: Pantoprazole Sodium 40 MG Tablet PO (09:27)
[2024-03-12] MEDS: Atenolol 50 MG Tablet PO (09:27)
[2024-03-12] MEDS: Aspirin 81 MG TAB.CHEW PO (09:27)
[2024-03-12] MEDS: Cholecalciferol (Vit D3) 125 MCG CAPSULE (5,000 UNITS) PO (09:28)
[2024-03-12] MEDS: Menthol/Lanolin/Calamine/Znox 113 GM Tube 1 APPLIC TOPICAL (09:28)
[2024-03-12 09:30] VITALS: BP 156/67; PULSE 91; RESP 16; TEMP 36.7; O2SAT 94
--- NOTE | 2024-03-12 11:04 | NURSING ---
Discharge paperwork reviewed with patient. Patient verbalized understanding. Waiting for pharmacy to come up with prescriptions.
[2024-03-12 11:26] VITALS: BP 141/72; PULSE 64; RESP 16; TEMP 36.7; O2SAT 97
== END 2024-03-12 11:20 | disposition home or self-care (01) | DRG 560 ==
PROVIDERS: Admitting Provider Family Medicine Geriatric Medicine; PCP Internal Medicine; Visit Provider Family Medicine Geriatric Medicine
DX: Z47.1 Aftercare following joint replacement surgery (principal); L03.115 Cellulitis of right lower limb; E11.9 Type 2 diabetes mellitus without complications; E03.9 Hypothyroidism, unspecified; I10 Essential (primary) hypertension; M16.11 Unilateral primary osteoarthritis, right hip; K58.9 Irritable bowel syndrome, unspecified; H35.30 Unspecified macular degeneration; E78.5 Hyperlipidemia, unspecified; E55.9 Vitamin D deficiency, unspecified; I25.10 Atherosclerotic heart disease of native coronary artery without angina pectoris; K21.9 Gastro-esophageal reflux disease without esophagitis; M79.7 Fibromyalgia; Z96.641 Presence of right artificial hip joint; Z79.82 Long term (current) use of aspirin; Z79.899 Other long term (current) drug therapy; Z79.890 Hormone replacement therapy
CPT/HCPCS: 36415; 74018; 80048; 85025; 87811; 97110; 97116; 97162; 97166; 97530; 97535; 97802

== ENCOUNTER → 2024-04-14 | Outpatient (CLI) | payer MEDICARE, SELFPAY ==
[2024-04-14 18:18] LABS: Absolute Neutrophil Count 9.5 X10^3/uL (2.0-7.7); Basophil# 0.09 X10^3/uL; Basophil% 0.6 % (0-1); Eosinophil# 0.45 X10^3/uL; Eosinophils% 3.2 % (0-5); Hematocrit 41.6 % (37-47); Hemoglobin 13.3 g/dL (12.0-15.0); Lymphocyte % 21.1 % (19-41); Mean Corpuscular Hgb 28.9 pg (27.0-32.0); Mean Corpuscular Volume 90.4 fL (81-99); Mean Platelet Vol. 11.1 fl (6.2-12.0); Monocyte# 1.14 X10^3/uL; NRBC Flagged by Analyzer 0 % (0-5); Neutrophil # 9.48 X10^3/uL (2.7-7.7); Neutrophil % 66.5 % (47-70); Platelet Count 244 K/mm3 (150-450); RBC Distribution Width CV 14.6 % (11.6-14.6); RBC Distribution Width SD 48.4 fl (35.1-43.9); White Blood Count 14.3 K/mm3 (4.4-11.0)
[2024-04-14 18:27] LABS: Microalbumin,Random Urine 32.4 mg/L (NO RANGE EST.); Microalbumin:Creatinine Ratio 26.8 mg/g CRE (<30 mg/g CRE)
[2024-04-14 18:28] LABS: Erythrocyte Sedimentation Rate 42 mm/hr (0-30)
[2024-04-14 18:41] LABS: ALB/GLOB Ratio 0.8 RATIO (0.9-2.4); AST(SGOT) 20 U/L (15-37); Alanine Aminotransfer ALT/SGPT 22 U/L (13-56); Albumin, Serum 3.5 g/dL (3.2-5.0); Alkaline Phosphatase 137 U/L (45-117); Amylase 103 U/L (25-115); Anion Gap 6 (5-15); BUN 19 mg/dL (7-18); BUN/Creat Ratio 12.5 RATIO (10-20); CRP 9.54 mg/L (0.0-3.0); Chloride 105 mmol/L (98-107); Creatinine, Serum 1.52 mg/dL (0.55-1.02); EST Glomerular Filtration Rate 35 mL/min (>60); Est Glom Filt Rate - Afr Amer 42 mL/min (>60); Globulin 4.4 g/dL (2.2-4.2); Glucose 117 mg/dL (74-106); Lipase 115 U/L (13-75); Potassium 4.3 mmol/L (3.5-5.1); Protein, Total 7.9 g/dL (6.4-8.2); Sodium Level 137 mmol/L (136-145)
== END | disposition home or self-care (01) ==
PROVIDERS: PCP Internal Medicine; Referring Provider Internal Medicine; Visit Provider Internal Medicine
DX: K92.1 Melena (principal); R10.12 Left upper quadrant pain; R80.9 Proteinuria, unspecified; R10.13 Epigastric pain
CPT/HCPCS: 36415; 80053; 82043; 82150; 82570; 83690; 85025; 85652; 86140

== ENCOUNTER → 2024-04-15 | Outpatient (CLI) | payer MEDICARE, SELFPAY ==
--- NOTE | 2024-04-15 14:19 | CT_ITS ---
STUDY: CT ABDOMEN AND PELVIS WITH CONTRAST REASON FOR EXAM: Female, 84 years old. 3 month history of left upper quadrant pain. RADIATION DOSAGE (If Supplied By Facility): CTDIvol = ( 17.13 ) mGy, DLP = ( 1248.69 ) mGycm TECHNIQUE: Transaxial images were obtained from the dome of the diaphragm to the symphysis pubis with oral contrast. Oral and amp; IV Readi-CAT and amp; 75mL Isovue-370 was administered. Sagittal and coronal images were reconstructed. Individualized dose optimization techniques were used for this CT. COMPARISON: Comparison is made with prior study dated April 09, 2013. FINDINGS: Mild degree of increased markings at the lung bases suggestive of bibasilar scarring. Coronary artery calcification. Normal liver. There are surgical clips in the gallbladder fossa consistent with a prior cholecystectomy. Stable 1 cm hypodensity in the lateral aspect of the spleen. Normal pancreas. Normal bilateral adrenal glands. Normal right kidney. Normal left kidney. Normal visualized stomach. Normal small intestine. There are multiple colonic diverticula consistent with diverticulosis. The appendix is visualized and appears normal. There is diffuse atherosclerotic calcification of the abdominal aorta and its major visceral branches, without a demonstrated aneurysm. Normal inferior vena cava. Normal retroperitoneum. Normal urinary bladder. Normal abdominal wall. There are degenerative changes of the visualized lumbar spine. Status post bilateral total hip replacement causing beam hardening artifact limiting the evaluation of the pelvic structures. CT/Abdomen/Pelvis WITH Contrast IMPRESSION: Mild scarring at the lung bases. Status post cholecystectomy. Sigmoid diverticulosis. Electronically Signed: Narciso Alexis MD at 14:49 EDT ,
== END | disposition home or self-care (01) ==
LOC: CT 14:19
PROVIDERS: PCP Internal Medicine; Referring Provider Internal Medicine; Visit Provider Internal Medicine
DX: R10.12 Left upper quadrant pain (principal)
CPT/HCPCS: 74177; Q9967

== ENCOUNTER 2024-06-15 11:29 | Emergency (ER) | payer MEDICARE, SELFPAY ==
[2024-06-15 11:30] VITALS: BP 183/62; PULSE 68; RESP 18; TEMP 36.6; O2SAT 98; BMI 36.8
[2024-06-15 11:33] VITALS: BMI 36.8
[2024-06-15 11:41] VITALS: BP 183/62; PULSE 67; RESP 16; TEMP 36.9; O2SAT 98
[2024-06-15 12:23] LABS: Bedside Glucose 183 mg/dL (74-106)
--- NOTE | 2024-06-15 12:27 | CT_ITS ---
STUDY: CT BRAIN WITHOUT CONTRAST REASON FOR EXAM: Female, 84 years old. Left facial droop RADIATION DOSAGE (If Supplied By Facility): CTDIvol = ( 44.99 ) mGy, DLP = ( 762.36 ) mGycm TECHNIQUE: Transaxial CT imaging of the brain was performed without administration of intravenous contrast material. Individualized dose optimization techniques were used for this CT. COMPARISON: No relevant priors. FINDINGS: Normal soft tissue structures. There is hyperostosis frontalis internus. There is mild cerebral atrophy with widening of the extra-axial spaces and ventricular dilatation. There are areas of decreased attenuation within the white matter tracts of the supratentorial brain, consistent with microvascular disease changes. There are small punctate calcifications of the basal ganglia which are seen in the aging brain as a normal variant. Normal brainstem. There is mild cerebellar atrophy. There is no intracranial hemorrhage. There are no findings of an acute ischemic infarction. Normal visualized paranasal sinuses. CT/Brain/Head without Contrast IMPRESSION: Chronic involutional changes of the brain. Electronically Signed: Narciso Alexis MD at 13:01 EST ,
[2024-06-15 12:29] VITALS: BP 149/56; PULSE 61; RESP 18; O2SAT 98
[2024-06-15 13:00] VITALS: BP 152/66; PULSE 61; RESP 18; O2SAT 98
--- NOTE | 2024-06-15 13:04 | EKG12_ITS ---
Test Reason : NEURO Blood Pressure : */* mmHG Vent. Rate : 69 BPM Atrial Rate : 69 BPM P-R Int : 222 ms QRS Dur : 80 ms QT Int : 406 ms P-R-T Axes : 74 10 35 degrees QTcB Int : 435 ms Sinus rhythm with marked sinus arrhythmia with 1st degree A-V block with occasional Premature ventric ular complexes Otherwise normal ECG Confirmed by Kevin Shah ([id number]), rewrite editor ERNA WALTON ([id number]) on 06/16/2024 11:41:20 AM Referred By: TERA/MORRIS Confirmed By: Kevin Shah
--- NOTE | 2024-06-15 14:08 | EDS_ITS ---
HPI History of Present Illness Chief Complaint: Neuro S/Sx Detail of Chief Complaint: Left facial paralysis since last night. Informant: patient and family Onset/Context/Timing Onset: Today and Yesterday Context: Gradual Onset Timing: Continuous Quality and Location: Positive for Left Facial Droop; Negative for Slurred Speech or Difficulty with Ambulation Current Severity: Moderate Maximum Severity: Moderate Associated Symptoms Associated Symptoms: Negative for Headache, Nausea, Vomiting or Chest Pain Narrative Narrative: 84-year-old female history of hypertension. States that she noticed her left face, tingling and drooping last night around 8:00 for she went to bed. It was still there today. She came in at evaluate. No history of stroke or TIA. No headache or trauma to her head. Denies other complaints. No arm or leg weakness. She typically ambulates with a cane and said that is her baseline. No trouble with her speech or change in her vision. Prior similar symptoms: No Recent Illness/Hospitalization: No [facility] Medical History (Updated 06/15/24 @ 14:[address] Abdoulaye Woo MD) Macular degeneration Vision problem Skin cancer H/O: pneumonia Osteopenia IBS (irritable bowel syndrome) Type 2 diabetes mellitus Cataracts, bilateral Back problem Essential hypertension Fibromyalgia GERD (gastroesophageal reflux disease) Atherosclerotic heart disease of [place] coronary artery without angina pectoris Osteoarthritis of left hip Gout Hyperlipidemia Premature ventricular contraction Premature atrial contractions Hypothyroidism Home Medications ?Medication ?Instructions ?Recorded ?Last Taken ?Type losartan 100 mg tablet 100 mg PO QHS BLOOD PRESSURE 07/08/17 02/26/24 21:30 History lactobacillus combination no.9 4 4,000 mmu cells PO QDAY Probiotic 03/30/18 Unknown History billion cell capsule (Adult 50 Plus Probiotic) diphenhydramine HCl 25 mg capsule 25 mg PO Q6H PRN itching 06/05/20 02/25/24 History (Allergy Relief (diphenhydramine)) liothyronine 5 mcg tablet 5 mcg PO DAILY Thyroid 06/05/20 02/27/24 06:15 History vitamins A,C,Q-nlhi-sxirlm 4,296 1 cap PO BID Supplement 06/22/21 02/27/24 11:45 History mcg-226 mg-90 mg capsule (PreserVision AREDS) aspirin 81 mg tablet,delayed 81 mg PO .3XW Heart 07/15/22 Unknown History release atenolol 50 mg tablet 75 mg PO QHS BLOOD PRESSURE 07/15/22 Unknown History cholecalciferol (vitamin D3) 50 8,000 unit PO DAILY supplement 07/15/22 Unknown History mcg (2,000 unit) capsule levothyroxine 150 mcg tablet 150 mcg PO .COMPLEX Thyroid 07/15/22 02/27/24 06:15 History amlodipine 10 mg tablet 10 mg PO DAILY Blood pressure 02/27/24 02/27/24 08:30 History atenolol 50 mg tablet 50 mg PO DAILY Blood Pressure 02/27/24 02/27/24 08:30 History acetaminophen 500 mg tablet 1,000 mg (2 x 500 mg) PO Q8 #0 tabs 03/10/24 Unknown Rx aspirin 81 mg chewable tablet 81 mg PO BIDCM 14 days #0 tabs 03/10/24 Unknown Rx oxycodone 5 mg tablet 5 - 10 mg (1 - 2 x 5 mg) PO Q6H 03/10/24 Unknown Rx PRN PRN Pain Score 6-10 Or Pre Pt/Ot 7 days #28 tabs pantoprazole 40 mg tablet,delayed 40 mg PO DAILY 30 days #30 tabs 03/10/24 Unknown Rx release sennosides 8.6 mg-docusate sodium 2 tab PO BID 30 days #120 tabs 03/10/24 Unknown Rx 50 mg tablet (Stimulant Laxative Plus) famciclovir 500 mg tablet 500 mg PO BID 7 days #14 tabs 06/15/24 Unknown Rx prednisone 20 mg tablet 40 mg (2 x 20 mg) PO DAILY 7 days 06/15/24 Unknown Rx #14 tabs Allergy/AdvReac Type Severity Reaction Status Date / Time levofloxacin (From Levaquin) Allergy Unknown Verified 06/15/24 11:30 morphine Allergy Itching Verified 06/15/24 11:30 prednisone Allergy Swelling Verified 06/15/24 11:30 celecoxib (From Celebrex) AdvReac Upset Verified 06/15/24 11:30 Stomach hydrochlorothiazide AdvReac DIZZINESS Verified 06/15/24 11:30 niacin AdvReac HOT FLASHES Verified 06/15/24 11:30 pitavastatin (From Livalo) AdvReac MUSCLE Verified 06/15/24 11:30 ACHES Family History Mother Hypertension Arthritis Diabetes Thyroid disorder Sister CAD (coronary artery disease) Hypertension Arthritis Diabetes Heart disease Thyroid disorder Surgical History History of total right hip arthroplasty History of bilateral cataract extraction History of carpal tunnel release History of hip replacement (~07/2017) History of shoulder surgery History of knee replacement procedure of right knee History of tubal ligation History of cholecystectomy Social History (Updated 02/27/24 @ 22:[address] Levy Garcia MD) household members: none Smoking Status: Never smoker alcohol intake: never substance use type: does not use what type of physical activity do you participate in: none ROS ROS ED ROS Narrative Denies recent illness. Constitutional Constitutional ED: Denies chills or fever(s) Eyes Eyes: Denies blurry vision ENT ENT ED: Denies ear pain Cardiovascular Cardiovascular: Denies chest pain Respiratory/Chest Respiratory/Chest: Denies cough or dyspnea Gastrointestinal Gastrointestinal: Denies abdominal pain Genitourinary Genitourinary ED: Denies dysuria or hematuria Integumentary Denies abscess or Abrasions Neurologic Neurologic: Denies headache(s) Psychiatric Psychiatric: Denies anxiety Endocrine Endocrinology: Denies polydipsia Hematologic/Lymphatic Hematologic/Lymphatic: Denies easy bleeding Allergic/Immunologic Allergic/Immunologic ED: Denies mouth swelling EXAM Physical Exam Narrative Exam Narrative: Well-appearing 84-year-old female. Vital signs are stable afebrile. She does not look septic toxic or any distress. H EENT exam pupils round reactive light extra motions are intact. She has trouble closing her left eye due to left facial droop. She has a droop of her left corner of her mouth. Tongue is midline. Normal speech. There is involvement of her left forehead. The right side is spared. Neck nontender. Lungs clear. Heart regular rate and rhythm rate about 65 no murmur. Chest wall ribs are nontender. Abdomen soft nontender. No peritoneal signs. Moving all 4 extremities. Nontender no deformity. 5 out of 5 disaster response director strength. Dorsi plantarflexion intact. Neurologically she is awake alert. Answering questions following commands. Normal vision. Normal speech. 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 Fingertip to nose within normal limits. No drift with upper or lower extremities. She can ambulate with her cane without any difficulty. I walked her out of the room into the hallway and this is her baseline gait she tells me. As does the family. Const Vital Signs: 06/15/24 11:30 06/15/24 11:41 06/15/24 12:29 Temperature 97.8 F 98.4 F Temperature Source Oral Oral Pulse Rate 68 67 61 Respiratory Rate 18 16 18 Blood Pressure 183/62 H 183/62 H 149/56 H Blood Pressure Mean 102 102 87 Pulse Ox 98 98 98 Oxygen Delivery Method Room Air Room Air Room Air 06/15/24 13:00 Temperature Temperature Source Pulse Rate 61 Respiratory Rate 18 Blood Pressure 152/66 H Blood Pressure Mean 94 Pulse Ox 98 Oxygen Delivery Method Room Air Positive well nourished and well developed; Negative for cachectic, contractures or unkempt General Appearance ED: well developed and NAD; Negative for unkempt, cachectic or contractures Nutritional Appearance: Negative for cachectic HEENT Reports TM's clear and moist mucous membranes; Denies dry mucous membranes atraumatic; Negative for trauma Tympanic Membrane ED: Yes TM's clear Mouth ED: No dry mucous membranes Mouth: No dry mucous membranes Eyes PERRL and EOMs intact bilaterally Eyes Narrative: Left facial droop with difficulty closing her left eye. Consistent with Cruz's palsy. General Eye ED: Negative for pale conjunctiva or scleral icterus Neck no lymphadenopathy, supple and no JVD General: Negative for tenderness Thyroid: Negative for other Chest Wall inspection of chest normal and palpation of chest normal Resp normal respiratory effort and clear to auscultation bilaterally Effort and Inspection: Negative for retractions Auscultation: Negative for rales, rhonchi, wheezes or diminished lung sounds Cardio no murmurs Rate: regular rate Rhythm: regular rhythm Heart Sounds: Negative for S1 normal or S2 normal GI normal to inspection, nondistended, normoactive bowel sounds, soft to palpation, non-tender, non-distended and no masses Auscultation: normoactive bowel sounds Palpation: Negative for tender or guarding Back/Spine no CVA tenderness General Back: Negative for CVA tenderness Cervical Spine: Negative for cervical spine tenderness Thoracic Spine / Upper Back: Negative for thoracic spinal tenderness Lumbar Spine / Lower Back: Negative for lumbar spinal tenderness Extremity normal to inspection General Extremety ED: Negative for deformity, edema or tenderness General Extremity: Negative for deformity or edema Neuro oriented x3 Neuro Narrative: Patient has left facial droop. Extraocular motions are intact. Trouble closing her upper and lower eyelid. Involvement left forehead sparing of the right. Sensorium / Orientation: alert, oriented to person, oriented to place and oriented to time; Negative for orientation impaired, confused, lethargic or stuporous Speech: speech normal Motor Exam: strength 5/5 throughout Psych mental status grossly normal Appearance: Negative for unkempt Attitude: No agitated Mood & Affect: Negative for depressed, anxious or tearful Attention / Concentration: Negative for other Skin no wounds General Skin Exam: Negative for jaundice Lesions: no lesions Rashes: no rashes Trauma: Negative for abrasion or laceration NIHSS NIHSS Initial: 1a Level of Consciousness: 0 1b LOC Questions (Score 2 if aphasic/stupor): 0 1c LOC Commands (Only score 1st attempt): 0 2 Best Gaze (If aphasic, use reflexive mvmts.): 0 3 Visual: 0 4 Facial Palsy: 2 (Left facial droop. 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 Only involvement is her face. Arms and legs are normal with normal strength and sensation. Normal speech. NIH is 2. She ambulated well with her cane. CAT scan showed chronic changes no acute process. Repeat exam at 210 is unchanged. Again she can ambulate with her cane without difficulty. I discussed with the patient and family Cruz's palsy. She will be placed on Famvir for 7 days. Prednisone 40 mg a day for 7 days. She was given tape to tape her eye closed and use artificial tears. I spoke to Dr. Mallory of [facility] covering for Dr. Swapna Lowry for them to follow-up with the patient. History & Record Review Discussion w/independent historian: Patient and Family Additional record(s) reviewed:: Prior inpatient record, Prior outpatient record, Prior ED visit and Prior labs Lab Data Attestation: I reviewed the patient's lab results. Lab results narrative: BGT 183. CAT scan of her brain chronic changes read by the radiologist and reviewed by me. Labs: Laboratory Results - last 24 hr 06/15/24 11:40 POC Glucose 183 H Radiography Diagnostic Testing: Clinical Impression(s) from Imaging Studies Brain CT 06/15/24 12:27 IMPRESSION: Chronic involutional changes of the brain. Electronically Signed: Narciso Alexis MD at 13:01 EST , Rhythm Strip Rhythm Strip: Sinus Rhythm Rate: 69 Ectopy: PVC(s) EKG Initial EKG: Attestation: I personally reviewed and interpreted this EKG as follows: Interpretation: Sinus Rhythm and No Acute Injury Pattern Comments: Normal sinus rhythm rate of 69. First-degree AV block with CA interval of 222. Occasional PVCs. No acute sign of MO or ischemia. Discharge Plan Triage Chief Complaint: Neuro S/Sx ED Provider: Abdoulaye Woo Dx/Rx/DC Orders Clinical Impression: Facial paralysis/Carson palsy, History of hypertension Instructions: ED Cruz's Palsy Prescriptions: New famciclovir 500 mg tablet 500 mg PO BID 7 Days Qty: 14 0RF prednisone 20 mg tablet 40 mg PO DAILY 7 Days Qty: 14 0RF No Action Adult 50 Plus Probiotic 4 billion cell capsule 4,000 mmu cells PO QDAY diphenhydramine HCl [Allergy Relief(diphenhydramin)] 25 mg capsule 25 mg PO Q6H PRN (Reason: itching) liothyronine 5 mcg tablet 5 mcg PO DAILY PreserVision AREDS [id number] xaxn-it-ntoa capsule 1 cap PO BID levothyroxine 150 mcg tablet 150 mcg PO .COMPLEX Rx Instructions: 150 mcg orally take 1 tab by mouth daily except take 1.5 tabs MWF; aspirin 81 mg tablet,delayed release (DR/EC) 81 mg PO .3XW losartan 100 MG tablet 100 mg PO QHS atenolol 50 mg tablet 75 mg PO QHS cholecalciferol (vitamin D3) 50 mcg (2,000 unit) capsule 8,000 unit PO DAILY atenolol 50 mg tablet 50 mg PO DAILY amlodipine 10 mg tablet 10 mg PO DAILY sennosides-docusate sodium [Stimulant Laxative Plus] 8.6-50 mg Tablet 2 tab PO BID 30 Days Qty: 120 0RF acetaminophen 500 mg Tablet 1,000 mg PO Q8 Qty: 0 0RF pantoprazole 40 mg Tablet,Delayed Release (Dr/Ec) 40 mg PO DAILY 30 Days Qty: 30 0RF aspirin 81 mg Tablet,Chewable 81 mg PO BIDCM 14 Days Qty: 0 0RF oxycodone 5 mg Tablet 5 - 10 mg PO Q6H PRN PRN (Reason: Pain Score 6-10 Or Pre Pt/Ot) 7 Days Qty: 28 0RF Primary Care Provider: Swapna Lowry Referrals: Swapna Lowry, [Primary Care Provider] - 3-5 Days Activity Restrictions/Additional Instructions: He will be started on prednisone 40 mg a day for the next week. You will also be started on Famvir. Both of these medications are to to treat your Cruz's palsy which is inflammation of your left facial nerve causing you the facial droop. Typically this will get better over the next 7 days or so. Follow-up with Dr. Jaycee Lowry for further evaluation. While you still have this facial droop you need to tape your left eye closed at night to prevent it from getting dried out getting an ulcer. You can use artificial tears during the day to prevent dryness. Print Language: Slovak Disposition Disposition: Home, Self Care
[2024-06-15 14:09] VITALS: BP 151/64; PULSE 78; RESP 16; TEMP 36.6; O2SAT 99
== END 2024-06-15 14:16 | disposition home or self-care (01) ==
PROVIDERS: Emergency Provider Emergency Medicine; PCP Internal Medicine; Visit Provider Emergency Medicine
DX: G51.0 Bell's palsy (principal); E11.9 Type 2 diabetes mellitus without complications; I25.10 Atherosclerotic heart disease of native coronary artery without angina pectoris; E78.5 Hyperlipidemia, unspecified; I10 Essential (primary) hypertension; Z85.828 Personal history of other malignant neoplasm of skin; E03.9 Hypothyroidism, unspecified; Z79.890 Hormone replacement therapy; Z79.899 Other long term (current) drug therapy; Z79.82 Long term (current) use of aspirin; K21.9 Gastro-esophageal reflux disease without esophagitis; Z96.641 Presence of right artificial hip joint; Z98.41 Cataract extraction status, right eye; Z98.42 Cataract extraction status, left eye; Z96.651 Presence of right artificial knee joint; Z98.51 Tubal ligation status; Z90.49 Acquired absence of other specified parts of digestive tract
CPT/HCPCS: 70450; 82962; 93005; 99285

== ENCOUNTER → 2024-07-15 | Outpatient (CLI) | payer MEDICARE, SELFPAY ==
--- NOTE | 2024-07-15 13:03 | BI_ITS ---
MAMMOGRAPHY - BILATERAL SCREENING REASON FOR EXAM: Female, 84 years old. Routine annual screening examination. PERTINENT HISTORY: Non-contributory. TECHNIQUE: Digital bilateral breast ej (3D mammographic acquisition) in the CC and MLO projections. 2-D mediolateral oblique (MLO) and craniocaudad (CC) views of both breasts were obtained. CAD: Full Field Digital Mammography with Computer Added Detection was performed. COMPARISON: Comparison is made with prior study dated July 14, 2023 and July 12, 2022. FINDINGS: Breast Composition: The breasts are almost entirely fatty. There are no dominant masses or suspicious calcifications. Stable 5 mm benign-appearing lymph node in the upper lateral aspect of the right breast. Stable secretory calcification in the retroareolar region of the left breast. No other significant abnormalities are identified. There has been no significant change since the prior study. BI/SCRN MAMM (CAD)W/EJ BILAT IMPRESSION: Stable bilateral screening mammogram. Yearly follow-up mammogram recommended. (A) ASSESSMENT CATEGORY: BIRADS Category 2: Benign. A letter regarding these results will be sent to the patient by the facility within 30 days. Approximately 10% of breast cancers are not detected by mammography. A normal mammogram should not delay biopsy of a clinically suspicious abnormality. [id number] Electronically Signed: Narciso Alexis MD at 13:58 EST ,
--- NOTE | 2024-07-15 13:08 | BD_ITS ---
STUDY: DUAL ENERGY X-RAY ABSORPTIOMETRY / DXA REASON FOR EXAM: Female, 84 years old. [id number] TECHNIQUE: Bone Mineral Density (BMD) measurements of lumbar spine and left forearm were obtained. COMPARISON: Comparison is made with prior study dated July 04, 2021. FINDINGS: Lumbar Spine (L1-L4): g/cm2 (1.021) / T-score (-0.5) / Z-score (2.4) Findings are suggestive of normal bone density with a low fracture risk. Left Forearm: g/cm2 (0.541) / T-score (-1.5) / Z-score (2.1) The T-Scores on the most recent prior examination were: Lumbar Spine (L1-L4): There has been improvement of bone density since the previous examination. BD/Dexa Bone Density Study IMPRESSION: The patient is considered osteopenic as outlined below according to World Laron Organization (WHO) criteria with a low fracture risk. There has been improvement of bone density since the previous examination. Reference Information: The T-score is the number of standard deviations above or below the standard which is normal for young adults at their peak bone mineral density. The World Health Organization (WHO) interprets the T-scores as follows: Above -1 Normal bone density Between -1 and -2.5 Osteopenia Equal to / or below -2.5 Osteoporosis As a practical clinical guideline, osteopenia may be graded as follows: Mild -1 through -1.5 Moderate -1.6 through -2.0 Severe -2.1 through -2.4 The Z-score is the number of standard deviations above or below age-matched controls. A Z-score of less than -1.5 would be considered abnormal. References: 1. NIH Osteoporosis and Related Bone Diseases www osteo.org 2. International Society for Clinical Densitometry www iscd.org 3. National Osteoporosis Foundation www nof.org Electronically Signed: Narciso Alexis MD at 14:04 EST ,
== END | disposition home or self-care (01) ==
LOC: OPBD 13:00
PROVIDERS: PCP Internal Medicine; Referring Provider Internal Medicine; Visit Provider Internal Medicine
DX: Z12.31 Encounter for screening mammogram for malignant neoplasm of breast (principal); Z78.0 Asymptomatic menopausal state
CPT/HCPCS: 77063; 77067; 77080

== ENCOUNTER → 2024-07-29 | Outpatient (CLI) | payer MEDICARE, SELFPAY ==
--- NOTE | 2024-07-29 12:48 | US_ITS ---
STUDY: ULTRASOUND OF THE FEMALE PELVIS - COMPLETE REASON FOR EXAM: Female, 84 years old. Abdominal pain LMP: Patient is postmenopausal. TECHNIQUE: Transabdominal and Transvaginal TECHNICAL QUALITY: Adequate. COMPARISON: None. FINDINGS: The uterus is anteverted and is in a midline position. The uterus measures 7.2 cm x 3.8 cm x 3.1 cm. Normal uterine cervix. The endometrium is slightly thickened for the patient''s age and measures 4 mm in thickness, and is hyperechoic. There is no demonstrated endometrial mass. There is no demonstrated myometrial mass. I.U.D. - The patient does not have an I.U.D. The right ovary is non-visualized. The left ovary is non-visualized. There is no fluid in the cul-de-sac. US/Pelvic w/ Transvaginal IMPRESSION: Slight thickening of the endometrium at 4 mm thickness. Electronically Signed: Narciso Alexis MD at 12:59 EST ,
--- NOTE | 2024-07-29 12:48 | CT_ITS ---
STUDY: CTA ABDOMEN AND PELVIS WITH CONTRAST REASON FOR EXAM: Female, 84 years old. Left upper quadrant pain. Worse postprandial. RADIATION DOSAGE (If Supplied By Facility): CTDIvol = ( 29.65 ) mGy, DLP = ( 1243.33 ) mGycm TECHNIQUE: Transaxial images were obtained from the dome of the diaphragm to the symphysis pubis without oral contrast. IV 100mL Isovue-370 was administered. Sagittal and coronal images were reconstructed. 3-D images were reconstructed. Individualized dose optimization techniques were used for this CT. COMPARISON: Comparison is made with prior study April 15, 2024. FINDINGS: Mild degree of increased markings at the lung bases suggestive of scarring. Coronary artery calcification. Normal liver. There are surgical clips in the gallbladder fossa consistent with a prior cholecystectomy. Stable 1 cm hypodensity in the lateral aspect of the spleen. Normal pancreas. Normal bilateral adrenal glands. Normal right kidney. Normal left kidney. Normal visualized stomach. Normal small intestine. There are multiple colonic diverticula consistent with diverticulosis. The appendix is visualized and appears normal. There is diffuse atherosclerotic calcification of the abdominal aorta and its major visceral branches, without a demonstrated aneurysm. Normal inferior vena cava. Normal retroperitoneum. Normal urinary bladder. Normal abdominal wall. There are degenerative changes of the visualized lumbar spine. Status post bilateral hip replacements. CT/CTA Abd/Pelvis W/WO Contrast IMPRESSION: Atherosclerotic calcification of the abdominal aorta and major visceral branches. Status post cholecystectomy. Sigmoid diverticulosis. Electronically Signed: Narciso Alexis MD at 13:04 EST ,
[2024-07-29 14:14] LABS: CREATININE FINGERSTICK < 1.0 mg/dL (0.55-1.02); EGFR FINGERSTICK > 60.0000 mL/min (>60)
== END | disposition home or self-care (01) ==
LOC: CT 12:43
PROVIDERS: PCP Internal Medicine; Referring Provider Internal Medicine; Visit Provider Internal Medicine
DX: R10.84 Generalized abdominal pain (principal); Z78.0 Asymptomatic menopausal state
CPT/HCPCS: 74174; 76830; 76856; Q9967

== ENCOUNTER → 2024-10-28 | Outpatient (CLI) | payer MEDICARE, SELFPAY ==
--- NOTE | 2024-10-28 16:25 | CT_ITS ---
PROCEDURE: ABDOMEN/PELVIS WITH CONTRAST (procedure code [id number]), 10/28/2024 REASON FOR EXAM: EPIGASTRIX PAIN (R10.13) TECHNIQUE: CT abdomen and pelvis was performed with IV contrast. Multiplanar reformats were generated. PO contrast was also administered. IV CONTRAST: Isovue-300 VOLUME: 97mL PO CONTRAST: Type and dose information not provided. RADIATION DOSE SUMMARY: CTDlvol: 21.62 mGy DLP: 1194.96 mGycm One or more dose reduction techniques were used (e.g., Automated exposure control, adjustment of the mA and/or kV according to patient size, use of iterative reconstruction technique). COMPARISON: 07/29/2024 FINDINGS: Streak artifact through the pelvis related to bilateral hip arthroplasty hardware. Motion artifact through the lung bases. Lung bases: Cardiomegaly. Coronary atherosclerosis and/or stents. At least trace aortic annular calcification. Atelectasis/scarring.. Liver: Unremarkable. Spleen: Tiny hypodensity too small to characterize likely a cyst or hemangioma in the absence of known malignancy, unchanged from 04/15/2024. Gallbladder: Cholecystectomy. Pancreas: Fatty infiltration of the head/uncinate process.. Adrenals: Unremarkable. Kidneys: Unremarkable. Bowel: Diverticulosis. Normal caliber appendix. Lymph nodes: Unremarkable. Vasculature: Advanced diffuse atherosclerosis with multifocal stenoses better evaluated on recent CTA. There is at least moderate focal stenosis along the proximal SMA. Peritoneum: Unremarkable. Bladder: Underdistended and partially obscured by artifact, suboptimally evaluated, grossly unremarkable.. Reproductive Organs: Similarly partially obscured, grossly unremarkable.. Body Wall: Unremarkable. Bones: Demineralization. Multilevel spondylosis. Variable spinal canal stenoses up to at least moderate/severe at L4-L5, suboptimally delineated by CT. Mild lumbar dextroscoliosis. Partially imaged bilateral hip arthroplasty. CT/Abdomen/Pelvis WITH Contrast IMPRESSION: 1. No acute findings. 2. Additional description as above. Reading Location: [id number]
== END | disposition home or self-care (01) ==
LOC: CT 16:24
PROVIDERS: PCP Internal Medicine; Referring Provider Internal Medicine; Visit Provider Internal Medicine
DX: R10.13 Epigastric pain (principal)
CPT/HCPCS: 74177; Q9967

== ENCOUNTER 2024-11-08 15:05 | Emergency (ER) | payer MEDICARE, SELFPAY ==
[2024-11-08 15:06] VITALS: BP 193/73; PULSE 77; RESP 16; TEMP 36.4; O2SAT 100
[2024-11-08 15:59] VITALS: BMI 37.7
--- NOTE | 2024-11-08 16:22 | VDLE_ITS ---
Reason For Study Reason For Study: Pain LLE Procedure LEFT This is a venous duplex using B-mode, color flow and GSV is normal. spectral Doppler. CFV is compressible, spontaneous, phasic, competent, Exam performed portable in ED. and demonstrates normal augmentation. The study was technically difficult. FV is compressible, spontaneous, phasic, competent The study was technically limited. and demonstrates normal augmentation. Patient unable to tolerate compressions in the thigh; POP V is compressible, spontaneous, phasic, competent relied on color doppler. and demonstrates normal augmentation. A preliminary report was called and/or faxed to T/P Trunk is compressible. Ungur. PTV is compressible. LT PerV is compressible. VL/Venous Duplex US, Unilateral Interpretation Summary Deep veins of the left lower extremity are patent and compressible segmentally. There is no evidence of left lower extremity deep vein thrombosis. Valvular competence appears intact within the p roximal deep venous system on the left . The left great saphenous vein appears patent and compressible segmentally. Ordering Physician: aRkesh Reynaga Referring Physician: Swapna Lowry Performed By: Romi Albarran, CHASCS, RVT
--- NOTE | 2024-11-08 16:22 | EDS_ITS ---
HPI <FLORENTIN Castañeda - Last Filed: 11/08/24 21:13> History of Present Illness Chief Complaint: Lower Extremity Injury Narrative Narrative: Patient presenting today with pain to her left lower extremity she has had over the past 4 days. She reports pain to the left lateral thigh that radiates down to the left knee. She reports chronic numbness to the left brown following a knee surgery 2 years ago. Last night she developed numbness and tingling to her left foot which is unusual for her. She reports chronic low back pain that has not been any worse. She denies fevers, chills, and injury to the area. She did have a mechanical fall yesterday where she hit the right side of her body against her car but denies injuring her left leg. She denies any history of blood clots or recent surgery/travel/immobilization. PFSH <FLORENTIN Castañeda - Last Filed: 11/08/24 21:13> COUNT INCLUDES THE [facility] Medical History Macular degeneration Vision problem Skin cancer H/O: pneumonia Osteopenia IBS (irritable bowel syndrome) Type 2 diabetes mellitus Cataracts, bilateral Back problem Essential hypertension Fibromyalgia GERD (gastroesophageal reflux disease) Atherosclerotic heart disease of [place] coronary artery without angina pectoris Osteoarthritis of left hip Gout Hyperlipidemia Premature ventricular contraction Premature atrial contractions Hypothyroidism Home Medications ?Medication ?Instructions ?Recorded ?Last Taken ?Type losartan 100 mg tablet 100 mg PO QHS BLOOD PRESSURE 07/08/17 02/26/24 21:30 History lactobacillus combination no.9 4 4,000 mmu cells PO QD AY Probiotic 03/30/18 Unknown History billion cell capsule (Adult 50 Plus Probiotic) diphenhydramine HCl 25 mg capsule 25 mg PO Q6H PRN itc carmencita 06/05/20 02/25/24 History (Allergy Relief (diphenhydramine)) liothyronine 5 mcg tablet 5 mcg PO DAILY Thyroid 06/0502/27/24 06:15 History vitamins A,C,X-[id number]-[id number] 4,296 1 cap PO BID Suppleme nt 06/22/21 02/27/24 11:45 History mcg-226 mg-90 mg capsule (PreserVision AREDS) aspirin 81 mg tablet,delayed 81 mg PO .3XW Heart 07/15 Unknown History release atenolol 50 mg tablet 75 mg PO QHS BLOOD PRESSURE 07/15/22 Unknown History cholecalciferol (vitamin D3) 50 8,000 unit PO DAILY quinonez pplement 07/15/22 Unknown History mcg (2,000 unit) capsule levothyroxine 150 mcg tablet 150 mcg PO .COMPLEX Thyro id 07/15/22 02/27/24 06:15 History amlodipine 10 mg tablet 10 mg PO DAILY Blood pressur e 02/27/24 02/27/24 08:30 History atenolol 50 mg tablet 50 mg PO DAILY Blood Pressur e 02/27/24 02/27/24 08:30 History acetaminophen 500 mg tablet 1,000 mg (2 x 500 mg) PO Q 8 #0 tabs 03/10/24 Unknown Rx aspirin 81 mg chewable tablet 81 mg PO BIDCM 14 days # 0 tabs 03/10/24 Unknown Rx oxycodone 5 mg tablet 5 - 10 mg (1 - 2 x 5 mg) PO Q6H 03/10/24 Unknown Rx PRN PRN Pain Score 6-10 Or Pre Pt/Ot 7 days #28 tabs pantoprazole 40 mg tablet,delayed 40 mg PO DAILY 30 da ys #30 tabs 03/10/24 Unknown Rx release sennosides 8.6 mg-docusate sodium 2 tab PO BID 30 days #120 tabs 03/10/24 Unknown Rx 50 mg tablet (Stimulant Laxative Plus) famciclovir 500 mg tablet 500 mg PO BID 7 days #14 tab s 06/15/24 Unknown Rx prednisone 20 mg tablet 40 mg (2 x 20 mg) PO DAILY 7 days 06/15/24 Unknown Rx #14 tabs hydrocodone-acetaminophen 5-325mg 1 tab PO Q6H 3 days #10 TABLETS 11/08/24 Unknown Rx 5mg-325mg methylprednisolone 4 mg tablets in See Rx Instructions PO .COMPLEX 11/08/24 Unknown Rx a dose pack (Medrol (José Antonio)) #21 tabs Allergy/AdvReac Type Severity Reaction Status Date / Time levofloxacin (From Levaquin) Allergy Unknown Verified 06/15/24 11:30 morphine Allergy Itching Verified 06/15/24 11:30 prednisone Allergy Swelling Verified 06/15/24 11:30 celecoxib (From Celebrex) AdvReac Upset Verified 06/15/24 11:30 Stomach hydrochlorothiazide AdvReac DIZZINESS Verified 06/15/24 11:30 niacin AdvReac HOT FLASHES Verified 06/15/24 11:30 pitavastatin (From Livalo) AdvReac MUSCLE Verified 06/15/24 11:30 ACHES Family History Mother Hypertension Arthritis Diabetes Thyroid disorder Sister CAD (coronary artery disease) Hypertension Arthritis Diabetes Heart disease Thyroid disorder Surgical History History of total right hip arthroplasty History of bilateral cataract extraction History of carpal tunnel release History of hip replacement (~07/2017) History of shoulder surgery History of knee replacement procedure of right knee History of tubal ligation History of cholecystectomy Social History household members: none Smoking Status: Never smoker alcohol intake: never substance use type: does not use what type of physical activity do you participate in: none ROS <FLORENTIN Castañeda - Last Filed: 11/08/24 21:13> ROS ED Constitutional Constitutional ED: Denies chills or fever(s) Cardiovascular Cardiovascular: Denies chest pain Respiratory/Chest Respiratory/Chest: Denies dyspnea Gastrointestinal Gastrointestinal: Denies abdominal pain, nausea or vomiting Genitourinary Genitourinary ED: Denies dysuria, hematuria or urinary frequency Musculoskeletal Musculoskeletal: Reports back pain and myalgias Integumentary Denies rash Neurologic Neurologic: Reports paresthesias; Denies weakness EXAM <FLORENTIN Castañeda - Last Filed: 11/08/24 21:13> Physical Exam Const Vital Signs: 11/08/24 15:06 11/08/24 17:48 11/08/24 19:57 Temperature 97.5 F L 97.0 F L Temperature Source Temporal Pulse Rate 77 59 L 79 Respiratory Rate 16 20 H 14 Blood Pressure 193/73 H 184/65 H 185/65 H Blood Pressure Mean 113 104 105 Pulse Ox 100 96 93 Oxygen Delivery Method Room Air Room Air Positive well nourished, well developed and no apparent distress General Appearance ED: well developed HEENT Reports normocephalic and head/scalp atraumatic Mouth ED: Yes moist mucous membranes normal Eyes PERRL and EOMs intact bilaterally Neck full ROM and supple Chest Wall inspection of chest normal Resp normal respiratory effort and clear to auscultation bilaterally Cardio regular rate and regular rhythm GI soft to palpation, non-tender, non-distended and no masses Back/Spine normal ROM and normal to inspection Extremity normal to inspection and full ROM Extremity Narrative: Tenderness palpation to the left anterior and lateral thigh, no joint effusion to the left knee, no pain to palpation to the left greater trochanter, negative logroll on the left, intact range of motion to the left hip. Unable to palpate a left DP pulse, right DP pulses 2+. Unable to locate DP pulse on Doppler. Attending was able to palpate a left PT pulse. Good cap refill and intact sensation to the bilateral lower extremities. Neuro oriented x3, CN's II-XII intact bilaterally, moves all extremities, no focal motor deficits and no sensory deficits noted Sensorium / Orientation: awake and alert Psych mental status grossly normal and thought process normal Skin no rashes or lesions noted and no wounds <Dr. Rakesh Reynaga DO - Last Filed: 11/08/24 19:29> Physical Exam Const Vital Signs: 11/08/24 15:06 11/08/24 17:48 11/08/24 19:57 Temperature 97.5 F L 97.0 F L Temperature Source Temporal Pulse Rate 77 59 L 79 Respiratory Rate 16 20 H 14 Blood Pressure 193/73 H 184/65 H 185/65 H Blood Pressure Mean 113 104 105 Pulse Ox 100 96 93 Oxygen Delivery Method Room Air Room Air [facility] <FLORENTIN Castañeda - Last Filed: 11/08/24 21:13> [facility] Narrative Medical decision making narrative: Patient presenting today due to left lower extremity pain she has had over the past 4 days. Her pain is located to the lateral aspect of her left thigh down to her knee. She developed numbness and tingling to the left foot last night. Her pain is worse with ambulation and improved with rest. Low back pain does not seem to be any worse than usual. She does not have any overlying rash or signs of infection. Unable to palpate a left DP pulse but she does have good cap refill and sensation to her left foot. Labs will be obtained as well as a CTA of the abdomen pelvis with runoff obtained and no evidence for ischemic limb. Venous duplex ultrasound obtained to assess for DVT and is negative. She does have tenderness in the left lateral thigh, suspect that this could be muscular in nature. She also does have a history of sciatica, this could be consistent with nerve pain. Will give her orthopedics to follow-up with as well as a prescription for Medrol Dosepak and [place]. Return instructions discussed and patient discharged home in stable condition. I have personally performed a face to face assessment of the patient and have reviewed the OLESYA Note. I performed a substantive portion of the visit including all aspects of the following. My cisneros findings include: History is [patient presents with left leg pain x 4 days. She denies injury. Pain is from the left hip down the lateral thigh to the knee. Yesterday she had some mild numbness and tingling to the left foot. Pain is worse when she is up and walking. She has some pain across her lower back which at times is chronic and does not seem to be out of the ordinary. She denies any weakness to the extremity. She has had sciatica before but she states this feels different. She denies recent travel or surgery. No history of PE or DVT. Patient has had her left hip replaced and her left knee replaced.] Exam is [HEMINA-PERRLA, EOMI. Cranial nerves II through XII grossly intact. TMs clear. Mucous membranes moist. No adenopathy. Cardiovascular-regular rate and rhythm without murmur or ectopy Lungs-clear to auscultation, chest wall stable without crepitus or subcu emphysema Abdomen-normoactive bowel sounds, soft, nontender, no rebound or rigidity, no peritoneal signs. Extremities-intact ?4, normal range of motion. Left leg-patient has tenderness diffusely over the left thigh. Positive straight leg raise while supine at about 35 degrees. No cellulitic changes noted. Difficult to palpate her dorsal pedal pulse on the left. Cap refill about 3 seconds bilaterally. I am able to palpate a posterior tibial pulse. Normal L5 extension bilaterally.] Patient had venous Dopplers that were negative for DVT. CBC with differential was unremarkable. Chemistry showed an elevated potassium of 5.5 however there was hemolysis. Patient had a CT abdomen pelvis with runoff that did not show any significant occlusions in the left lower extremity. Based on patient's history of some chronic back pain and prior history of sciatica even though this is not classic for her sciatica symptoms suspect possibly nerve pain. I did obtain a CPK as well this was normal at 97. Will start patient on a Medrol Dosepak and treat with hydrocodone for pain. Will refer to [facility] Dr. Goel for follow-up. Patient understands she may need further imaging to evaluate further if symptoms do not improve such as possibly MRI. Medical Decison Making [ ] Other additions or changes: [None] Lab Data Labs: Laboratory Results - last 24 hr 11/08/24 16:44 WBC 10.9 RBC 4.96 Hgb 14.6 Hct 42.8 MCV 86.3 MCH 29.4 MCHC 34.1 RDW Std Deviation 45.9 H RDW Coeff of Andrew 14.6 Plt Count 205 MPV 12.3 H Immature Gran % (Auto) 0.300 Neut % (Auto) 65.4 Lymph % (Auto) 21.3 [place] % (Auto) 7.8 Eos % (Auto) 4.6 Baso % (Auto) 0.6 Absolute Neuts (auto) 7.1 Absolute Lymphs (auto) 2.31 Nucleated RBC % 0 Sodium 136 Potassium 5.4 H Chloride 102 Carbon Dioxide 20.7 L Anion Gap 14 BUN 21 H Creatinine 1.16 Estim Creat Clear Calc 37.00 L Est GFR (MDRD) Non-Af 46 L BUN/Creatinine Ratio 18.0 Glucose 165 H Calcium 9.9 Total Creatine Kinase 97 Radiography Diagnostic Testing: Clinical Impression(s) from Imaging Studies Venous Doppler Study 11/08/24 16:22 Interpretation Summary Deep veins of the left lower extremity are patent and compressible segmentally. There is no evidence of left lower extremity deep vein thrombosis. Valvular competence appears intact within the proximal deep venous system on the left . The left great saphenous vein appears patent and compressible segmentally. Ordering Physician: Rakesh Reynaga Referring Physician: Swapna Lowry Performed By: Romi Albarran, ALISSON, RVT Abdomen/Pelvis CTA 11/08/24 16:24 IMPRESSION: 1. Patent bilateral femoral, popliteal and trifurcation arteries without stenosis or occlusion. 2. Severe mixed calcific plaque of the abdominal aorta and celiac trunk. Moderate narrowing of the SMA just distal to its origin without occlusion. 3. Moderate bilateral renal artery narrowing. 4. See recent CT abdomen pelvis for discussion of additional nonvascular findings. Reading Location: [id number] <Dr. Rakesh Reynaga, DO - Last Filed: 11/08/24 19:29> [facility] Narrative Medical decision making narrative: Patient presenting today due to left lower extremity pain she has had over the past 4 days. Her pain is located to the lateral aspect of her left thigh down to her knee. She developed numbness and tingling to the left foot last night. Her pain is worse with ambulation and improved with rest. Low back pain does not seem to be any worse than usual. She does not have any overlying rash or signs of infection. Unable to palpate a left DP pulse but she does have good cap refill and sensation to her left foot. Labs will be obtained as well as a CTA of the abdomen pelvis with runoff to assess for ischemic limb. Venous duplex ultrasound obtained to assess for DVT and is negative. I have personally performed a face to face assessment of the patient and have reviewed the OLESYA Note. I performed a substantive portion of the visit including all aspects of the following. My cisneros findings include: History is [patient presents with left leg pain x 4 days. She denies injury. Pain is from the left hip down the lateral thigh to the knee. Yesterday she had some mild numbness and tingling to the left foot. Pain is worse when she is up and walking. She has some pain across her lower back which at times is chronic and does not seem to be out of the ordinary. She denies any weakness to the extremity. She has had sciatica before but she states this feels different. She denies recent travel or surgery. No history of PE or DVT. Patient has had her left hip replaced and her left knee replaced.] Exam is [HEENT-PERRLA, EOMI. Cranial nerves II through XII grossly intact. TMs clear. Mucous membranes moist. No adenopathy. Cardiovascular-regular rate and rhythm without murmur or ectopy Lungs-clear to auscultation, chest wall stable without crepitus or subcu emphysema Abdomen-normoactive bowel sounds, soft, nontender, no rebound or rigidity, no peritoneal signs. Extremities-intact ?4, normal range of motion. Left leg-patient has tenderness diffusely over the left thigh. Positive straight leg raise while supine at about 35 degrees. No cellulitic changes noted. Difficult to palpate her dorsal pedal pulse on the left. Cap refill about 3 seconds bilaterally. I am able to palpate a posterior tibial pulse. Normal L5 extension bilaterally.] Patient had venous Dopplers that were negative for DVT. CBC with differential was unremarkable. Chemistry showed an elevated potassium of 5.5 however there was hemolysis. Patient had a CT abdomen pelvis with runoff that did not show any significant occlusions in the left lower extremity. Based on patient's history of some chronic back pain and prior history of sciatica even though this is not classic for her sciatica symptoms suspect possibly nerve pain. I did obtain a CPK as well this was normal at 97. Will start patient on a Medrol Dosepak and treat with hydrocodone for pain. Will refer to [facility] Dr. Goel for follow-up. Patient understands she may need further imaging to evaluate further if symptoms do not improve such as possibly MRI. Medical Decison Making [ ] Other additions or changes: [None] Lab Data Attestation: I reviewed the patient's lab results. Labs: Laboratory Results - last 24 hr 11/08/24 16:44 WBC 10.9 RBC 4.96 Hgb 14.6 Hct 42.8 MCV 86.3 MCH 29.4 MCHC 34.1 RDW Std Deviation 45.9 H RDW Coeff of Andrew 14.6 Plt Count 205 MPV 12.3 H Immature Gran % (Auto) 0.300 Neut % (Auto) 65.4 Lymph % (Auto) 21.3 [place] % (Auto) 7.8 Eos % (Auto) 4.6 Baso % (Auto) 0.6 Absolute Neuts (auto) 7.1 Absolute Lymphs (auto) 2.31 Nucleated RBC % 0 Sodium 136 Potassium 5.4 H Chloride 102 Carbon Dioxide 20.7 L Anion Gap 14 BUN 21 H Creatinine 1.16 Estim Creat Clear Calc 37.00 L Est GFR (MDRD) Non-Af 46 L BUN/Creatinine Ratio 18.0 Glucose 165 H Calcium 9.9 Total Creatine Kinase 97 Radiography Diagnostic Testing: Clinical Impression(s) from Imaging Studies Venous Doppler Study 11/08/24 16:22 Interpretation Summary Deep veins of the left lower extremity are patent and compressible segmentally. There is no evidence of left lower extremity deep vein thrombosis. Valvular competence appears intact within the proximal deep venous system on the left . The left great saphenous vein appears patent and compressible segmentally. Ordering Physician: Rakesh Reynaga Referring Physician: Swapna Lowry Performed By: Romi Albarran, RDCS, RVT Abdomen/Pelvis CTA 11/08/24 16:24 IMPRESSION: 1. Patent bilateral femoral, popliteal and trifurcation arteries without stenosis or occlusion. 2. Severe mixed calcific plaque of the abdominal aorta and celiac trunk. Moderate narrowing of the SMA just distal to its origin without occlusion. 3. Moderate bilateral renal artery narrowing. 4. See recent CT abdomen pelvis for discussion of additional nonvascular findings. Reading Location: [facility] Discharge Plan Triage Chief Complaint: Lower Extremity Injury ED Midlevel Provider: Palma Curry ED Provider: Rakesh Reynaga Dx/Rx/DC Orders Clinical Impression: Left leg pain, History of sciatica Instructions: ED Myalgias Prescriptions: New hydrocodone-acetaminophen 5-325 mg tablet 1 tab PO Q6H 3 Days Qty: 10 0RF methylprednisolone [Medrol (José Antonio)] 4 mg tablets,dose pack See Rx Instructions .ROUTE .COMPLEX Qty: 21 0RF Rx Instructions: for 6 days No Action Adult 50 Plus Probiotic 4 billion cell capsule 4,000 mmu cells PO QDAY diphenhydramine HCl [Allergy Relief(diphenhydramin)] 25 mg capsule 25 mg PO Q6H PRN (Reason: itching) liothyronine 5 mcg tablet 5 mcg PO DAILY PreserVision AREDS [id number] capsule 1 cap PO BID levothyroxine 150 mcg tablet 150 mcg PO .COMPLEX Rx Instructions: 150 mcg orally take 1 tab by mouth daily except take 1.5 tabs MWF; aspirin 81 mg tablet,delayed release (DR/EC) 81 mg PO .3XW losartan 100 MG tablet 100 mg PO QHS atenolol 50 mg tablet 75 mg PO QHS cholecalciferol (vitamin D3) 50 mcg (2,000 unit) capsule 8,000 unit PO DAILY atenolol 50 mg tablet 50 mg PO DAILY amlodipine 10 mg tablet 10 mg PO DAILY sennosides-docusate sodium [Stimulant Laxative Plus] 8.6-50 mg Tablet 2 tab PO BID 30 Days Qty: 120 0RF acetaminophen 500 mg Tablet 1,000 mg PO Q8 Qty: 0 0RF pantoprazole 40 mg Tablet,Delayed Release (Dr/Ec) 40 mg PO DAILY 30 Days Qty: 30 0RF aspirin 81 mg Tablet,Chewable 81 mg PO BIDCM 14 Days Qty: 0 0RF oxycodone 5 mg Tablet 5 - 10 mg PO Q6H PRN PRN (Reason: Pain Score 6-10 Or Pre Pt/Ot) 7 Days Qty: 28 0RF famciclovir 500 mg tablet 500 mg PO BID 7 Days Qty: 14 0RF prednisone 20 mg tablet 40 mg PO DAILY 7 Days Qty: 14 0RF Primary Care Provider: Swapna Lowry Referrals: Chun Flannery MD [Med Staff - Active Staff] - 5-7 Days Swapna Lowry DO [Primary Care Provider] - Activity Restrictions/Additional Instructions: Follow-up with orthopedics and return for any worsening symptoms. Print Language: Icelandic Disposition Disposition: Home, Self Care Discharge Date/Time: 11/08/24 19:58
--- NOTE | 2024-11-08 16:24 | CT_ITS ---
PROCEDURE: CTA ABD W/RUNOFF W/WO CONTRAST 11/08/2024 REASON FOR EXAM: 84 yo F, LEFT LEG PAIN, CLAUDICATION TECHNIQUE: CTA imaging of the abdomen, pelvis, and lower extremities with intravenous contrast. Coronal and Sagittal reconstruction series were provided. 3D, 3D post processing, 3D reconstructions, Maximum intensity projection (MIPs) Volume rendering and Shaded surface rendering was provided. One or more dose reduction techniques were used (e.g., Automated exposure control, adjustment of the mA and/or kV according to patient size, use of iterative reconstruction technique). CONTRAST: Isovue 370 VOLUME: 100mL RADIATION DOSE SUMMARY: CTDlvol: 40 mGy DLP: 1400 mGycm COMPARISON: CT abdomen/pelvis 10/28/24 FINDINGS: Aorta: Severe mixed calcific plaque of the abdominal aorta without aneurysm. Celiac: Severe mixed atherosclerotic plaque of the celiac trunk at its origin resulting in moderate stenosis. SMA: Moderate soft plaque of the SMA just distal to its origin resulting in moderate narrowing. (For example series 2, images 55-59). NICKY : Mild calcific plaque of the NICKY at its origin resulting in mild stenosis. Renal: The single bilateral renal arteries are patent with moderate stenosis at their origins. Iliac: The bilateral common iliac arteries are patent with mild atherosclerotic plaque. No aneurysmal dilation. The bilateral internal and external iliac arteries are patent with mild mixed atherosclerotic plaque. RIGHT Lower Extremity: The common, superficial and deep femoral arteries are patent with mild atherosclerotic plaque. Popliteal: Grossly patent. Visualization is obscured by streak artifact from total knee arthroplasty. Trifurcation arteries: The right anterior tibial, posterior tibial and peroneal arteries are patent. LEFT Lower Extremity: The common, superficial and deep femoral arteries are patent with mild atherosclerotic plaque. Popliteal: Grossly patent. Visualization is obscured by streak artifact from total knee arthroplasty. Trifurcation arteries: The left anterior tibial, posterior tibial and peroneal arteries are patent. Other Stents/Grafts: None. Other Findings: Stable cardiomegaly with pectus excavatum deformity. Distal colonic diverticulosis. See recent CT abdomen pelvis for discussion of additional nonvascular findings. CT/CTA Abd w/Runoff W/WO Contrast IMPRESSION: 1. Patent bilateral femoral, popliteal and trifurcation arteries without stenos is or occlusion. 2. Severe mixed calcific plaque of the abdominal aorta and celiac trunk. Moder ate narrowing of the SMA just distal to its origin without occlusion. 3. Moderate bilateral renal artery narrowing. 4. See recent CT abdomen pelvis for discussion of additional nonvascular findin gs. Reading Location: [id number]
[2024-11-08] MEDS: HYDROmorphone 1 MG/ML Syringe 0.5 MG IV (16:38)
[2024-11-08] MEDS: Ondansetron 4 MG/2 ML Vial IV (16:38)
[2024-11-08 16:54] LABS: Absolute Lymphocyte Count 2.31 X10^3/uL (0.83-4.51); Absolute Neutrophil Count 7.1 X10^3/uL (2.0-7.7); Basophil# 0.06 X10^3/uL; Basophil% 0.6 % (0-1); Eosinophils% 4.6 % (0-5); Hematocrit 42.8 % (37-47); Hemoglobin 14.6 g/dL (12.0-15.0); Lymphocyte # 2.31 X10^3/ul (0.83-4.51); Lymphocyte % 21.3 % (19-41); Mean Corp Hgb Conc 34.1 g/dL (32-36); Mean Corpuscular Hgb 29.4 pg (27.0-32.0); Mean Corpuscular Volume 86.3 fL (81-99); Mean Platelet Vol. 12.3 fl (6.2-12.0); Monocyte# 0.85 X10^3/uL; Monocyte% 7.8 % (0-10); NRBC Flagged by Analyzer 0 % (0-5); Neutrophil % 65.4 % (47-70); Platelet Count 205 K/mm3 (150-450); RBC Distribution Width CV 14.6 % (11.6-14.6); RBC Distribution Width SD 45.9 fl (35.1-43.9); Red Blood Count 4.96 M/mm3 (4.2-5.4); White Blood Count 10.9 K/mm3 (4.4-11.0)
[2024-11-08 17:48] VITALS: BP 184/65; PULSE 59; RESP 20; O2SAT 96
[2024-11-08 17:51] LABS: Anion Gap 14 (5-15); BUN 21 mg/dL (4-19); CPK Total, Creatine Kinase 97 U/L (24-195); Calcium,Total 9.9 mg/dL (7.6-11.0); Carbon Dioxide 20.7 mmol/L (21.0-32.0); Chloride 102 mmol/L (98-108); Creatinine, Serum 1.16 mg/dL (0.70-1.20); EST Glomerular Filtration Rate 46 (>60); Glucose 165 mg/dL (70-99); Potassium 5.4 mmol/L (3.3-5.1); Sodium Level 136 mmol/L (133-145)
[2024-11-08 19:57] VITALS: BP 185/65; PULSE 79; RESP 14; TEMP 36.1; O2SAT 93
== END 2024-11-08 19:58 | disposition home or self-care (01) ==
PROVIDERS: Emergency Provider Emergency Medicine; PCP Internal Medicine; Visit Provider Emergency Medicine
DX: M79.605 Pain in left leg (principal); E11.9 Type 2 diabetes mellitus without complications; I25.10 Atherosclerotic heart disease of native coronary artery without angina pectoris; I10 Essential (primary) hypertension; E78.5 Hyperlipidemia, unspecified; Z85.828 Personal history of other malignant neoplasm of skin; Z79.82 Long term (current) use of aspirin; Z79.899 Other long term (current) drug therapy; E03.9 Hypothyroidism, unspecified; Z79.890 Hormone replacement therapy; K21.9 Gastro-esophageal reflux disease without esophagitis; Z96.641 Presence of right artificial hip joint; Z98.41 Cataract extraction status, right eye; Z98.42 Cataract extraction status, left eye; Z96.651 Presence of right artificial knee joint; Z98.51 Tubal ligation status; Z90.49 Acquired absence of other specified parts of digestive tract; Z87.898 Personal history of other specified conditions
CPT/HCPCS: 75635; 80048; 82550; 85025; 93971; 96374; 96375; 99283; Q9967; A4216; J2405

== ENCOUNTER 2025-01-29 16:26 | Inpatient (IN) | payer MEDICARE, SELFPAY ==
[2025-01-29] VITALS (14 sets, daily range): BP systolic 142–183; BP diastolic 55–95; PULSE 55–79; RESP 16–24; TEMP 36.4–36.8; O2SAT 83–99; BMI 34.7; BMI 34.9
--- NOTE | 2025-01-29 16:50 | EKG12_ITS ---
Test Reason : GENERAL Blood Pressure : */* mmHG Vent. Rate : 61 BPM Atrial Rate : 61 BPM P-R Int : 224 ms QRS Dur : 78 ms QT Int : 362 ms P-R-T Axes : 71 3 89 degrees QTcB Int : 364 ms Sinus rhythm with 1st degree A-V block Nonspecific T wave abnormality Abnormal ECG Confirmed by Kevin Shah ([id number]), brands editor ERNA WALTON ([id number]) on 02/01/2025 11:48:43 AM Referred By: Tomasz Parker Confirmed By: Kevin Shah
[2025-01-29 17:06] LABS: Absolute Lymphocyte Count 1.75 X10^3/uL (0.83-4.51); Absolute Neutrophil Count 5.7 X10^3/uL (2.0-7.7); Basophil# 0.05 X10^3/uL; Basophil% 0.6 % (0-1); Eosinophil# 0.37 X10^3/uL; Eosinophils% 4.3 % (0-5); Hematocrit 33.3 % (37-47); Hemoglobin 11.2 g/dL (12.0-15.0); Lymphocyte # 1.75 X10^3/ul (0.83-4.51); Lymphocyte % 20.4 % (19-41); Mean Corp Hgb Conc 33.6 g/dL (32-36); Mean Corpuscular Hgb 30.9 pg (27.0-32.0); Mean Platelet Vol. 10.5 fl (6.2-12.0); Monocyte# 0.69 X10^3/uL; NRBC Flagged by Analyzer 0 % (0-5); Neutrophil # 5.69 X10^3/uL (2.7-7.7); Neutrophil % 66.4 % (47-70); Platelet Count 168 K/mm3 (150-450); RBC Distribution Width CV 17.4 % (11.6-14.6); RBC Distribution Width SD 59.1 fl (35.1-43.9); Red Blood Count 3.62 M/mm3 (4.2-5.4); White Blood Count 8.6 K/mm3 (4.4-11.0)
--- NOTE | 2025-01-29 17:08 | EDS_ITS ---
HPI History of Present Illness Chief Complaint: Abn Labs Informant: patient and family Narrative Narrative: Sent in by PCP Dr. Amaro who called prior to patient arrival. Patient reports normal blood work yesterday was drawn she was called and sent in due to elevated creatinine and potassium. Reported creatinine of 1.1 in October of this year. Last visit creatinine 3 potassium 6.1. Patient denies palpitations chest pains racing heart. Denies nausea or vomiting. States over last couple days some loose stools 2-3 episodes. Has been trialing oral fluids. No changes in medications she is on losartan for hypertension. She is a diabetic that is reversed not currently on medications. [facility] Medical History Macular degeneration Vision problem Skin cancer H/O: pneumonia Osteopenia IBS (irritable bowel syndrome) Type 2 diabetes mellitus Cataracts, bilateral Back problem Essential hypertension Fibromyalgia GERD (gastroesophageal reflux disease) Atherosclerotic heart disease of [place] coronary artery without angina pectoris Osteoarthritis of left hip Gout Hyperlipidemia Premature ventricular contraction Premature atrial contractions Hypothyroidism Home Medications ?Medication ?Instructions ?Recorded ?Last Taken ?Type losartan 100 mg tablet 100 mg PO QHS BLOOD PRESSURE 07/08/17 02/26/24 21:30 History lactobacillus combination no.9 4 4,000 mmu cells PO QD AY Probiotic 03/30/18 Unknown History billion cell capsule (Adult 50 Plus Probiotic) diphenhydramine HCl 25 mg capsule 25 mg PO Q6H PRN itc carmencita 06/05/20 02/25/24 History (Allergy Relief (diphenhydramine)) liothyronine 5 mcg tablet 5 mcg PO DAILY Thyroid 06/0502/27/24 06:15 History vitamins A,C,A-nwae-gfwloi 4,296 1 cap PO BID Suppleme nt 06/22/21 02/27/24 11:45 History mcg-226 mg-90 mg capsule (PreserVision AREDS) aspirin 81 mg tablet,delayed 81 mg PO DAILY Heart 12/30 Unknown History release atenolol 50 mg tablet 75 mg PO QHS BLOOD PRESSURE 07/15/22 Unknown History levothyroxine 150 mcg tablet 150 mcg PO .COMPLEX Thyro id 07/15/22 02/27/24 06:15 History amlodipine 10 mg tablet 10 mg PO DAILY Blood pressur e 02/27/24 02/27/24 08:30 History atenolol 50 mg tablet 50 mg PO DAILY Blood Pressur e 02/27/24 02/27/24 08:30 History pantoprazole 40 mg tablet,delayed 40 mg PO DAILY 30 da ys #30 tabs 03/10/24 Unknown Rx release acetaminophen 500 mg tablet 1,000 mg PO Q8 PRN fever o r pain 01/29/25 Unknown History cholecalciferol (vitamin D3) 50 6,000 unit PO DAILY Unknown History mcg (2,000 unit) capsule (Vitamin D3) nabumetone 500 mg tablet 500 mg PO BID 01/29/25 Unkno wn History Allergy/AdvReac Type Severity Reaction Status Date / Time levofloxacin (From Levaquin) Allergy Unknown Verified 01/29/25 16:28 morphine Allergy Itching Verified 01/29/25 16:28 prednisone Allergy Swelling Verified 01/29/25 16:28 celecoxib (From Celebrex) AdvReac Upset Verified 01/29/25 16:28 Stomach hydrochlorothiazide AdvReac DIZZINESS Verified 01/29/25 16:28 niacin AdvReac HOT FLASHES Verified 01/29/25 16:28 pitavastatin (From Livalo) AdvReac MUSCLE Verified 01/29/25 16:28 ACHES Family History Mother Hypertension Arthritis Diabetes Thyroid disorder Sister CAD (coronary artery disease) Hypertension Arthritis Diabetes Heart disease Thyroid disorder Other Lupus Surgical History History of total right hip arthroplasty History of bilateral cataract extraction History of carpal tunnel release History of hip replacement (~07/2017) History of shoulder surgery History of knee replacement procedure of right knee History of tubal ligation History of cholecystectomy Social History household members: none Smoking Status: Never smoker alcohol intake: never substance use type: does not use what type of physical activity do you participate in: none ROS ROS ED Constitutional Constitutional ED: Denies chills, fever(s) or sweats ENT ENT ED: Denies sore throat Cardiovascular Cardiovascular: Denies chest pain, leg edema, palpitations or racing heartbeat Respiratory/Chest Respiratory/Chest: Denies cough, dyspnea or dyspnea on exertion Gastrointestinal Gastrointestinal: Denies abdominal pain, diarrhea, nausea or vomiting Genitourinary Genitourinary ED: Denies dysuria, hematuria or urinary frequency Musculoskeletal Musculoskeletal: Denies back pain, extremity pain or neck pain Integumentary Denies rash or wounds Neurologic Neurologic: Denies headache(s), paresthesias or weakness EXAM Physical Exam Const Vital Signs: 01/29/25 16:28 01/29/25 16:50 Temperature 98.0 F Temperature Source Oral Pulse Rate 70 Respiratory Rate 16 Respiratory Effort Normal Respiratory Pattern Normal Blood Pressure 165/60 H Blood Pressure Mean 95 Pulse Ox 97 Oxygen Delivery Method Room Air Positive well nourished and well developed General Appearance ED: well developed and NAD HEENT Reports moist mucous membranes normocephalic and atraumatic Eyes General Eye ED: Yes normal appearance of both eyes Neck full ROM Chest Wall Chest: Negative for tenderness Resp normal respiratory effort and normal air movement Effort and Inspection: symmetric chest movement; Negative for respiratory distress Cardio regular rate, regular rhythm and no murmurs Peripheral Pulses: pulses 2+ throughout GI normal to inspection, nondistended, normoactive bowel sounds and non-tender Palpation: Negative for guarding or rebound tenderness present Extremity normal to inspection General Extremety ED: Negative for edema or tenderness General Extremity: Negative for edema Neuro oriented x3 and no sensory deficits noted Sensorium / Orientation: awake and alert Skin no rashes or lesions noted and no wounds MDM MDM MDM Narrative Medical decision making narrative: Interventions / MDM: Differential diagnosis: Acute kidney injury, hyperkalemia, hyponatremia Diagnosis considered but do not suspect: N/A My EKG interpretation: Sinus rate of 61, no ST changes. T wave inversions V5 V6. QTc 364. No peaked T waves. Imaging independently reviewed and interpreted by myself: N/A External documents reviewed: N/A Test considered but not ordered:N/A ED course: Patient had abnormal creatinine and potassium reported. No labs from yesterday in the system. Asymptomatic loose stool started yesterday should not account for her abnormal lab work from yesterday. Vital stable. Will obtain EKG will recheck labs. 1800: Hemoglobin 11.2 white count 8.6. Creatinine is elevated at 3.3 GFR of 13. Potassium 5.6 sodium 131. No EKG changes. Aerosol treatments given insulin glucose to help shift the potassium. November 08, 2024 creatinine 1.1 GFR 46. Will discuss with hospitalist team for admission. Will give small IV fluid bolus. Patient did report recent NSAID prescription twice a day written by her orthopedist. Denies any black or bloody stools. I spoke with Dr. Parker for admission to PCU. Re-evaluation: stable Disposition discussed with patient/family/significant other: Patient and family Case discussed with consulting clinician: Hospitalist This note was generated with [employer] dictation software. It may contain incorrect words, spelling, and punctuation that were not noted in checking the note before signing. Lab Data Attestation: I reviewed the patient's lab results. Labs: Laboratory Results - last 24 hr 01/29/25 16:52 WBC 8.6 RBC 3.62 L Hgb 11.2 L Hct 33.3 L MCV 92.0 MCH 30.9 MCHC 33.6 RDW Std Deviation 59.1 H RDW Coeff of Andrew 17.4 H Plt Count 168 MPV 10.5 Immature Gran % (Auto) 0.300 Neut % (Auto) 66.4 Lymph % (Auto) 20.4 [place] % (Auto) 8.0 Eos % (Auto) 4.3 Baso % (Auto) 0.6 Absolute Neuts (auto) 5.7 Absolute Lymphs (auto) 1.75 Nucleated RBC % 0 Discharge Plan Triage Chief Complaint: Abn Labs ED Provider: Paul Moralez Dx/Rx/DC Orders Clinical Impression: [place] (acute kidney injury), Acute hyperkalemia, Acute hyponatremia Prescriptions: No Action Adult 50 Plus Probiotic 4 billion cell capsule 4,000 mmu cells PO QDAY diphenhydramine HCl [Allergy Relief(diphenhydramin)] 25 mg capsule 25 mg PO Q6H PRN (Reason: itching) liothyronine 5 mcg tablet 5 mcg PO DAILY PreserVision AREDS [id number] capsule 1 cap PO BID levothyroxine 150 mcg tablet 150 mcg PO .COMPLEX Rx Instructions: 150 mcg orally take 1 tab by mouth daily except take 1.5 tabs MWF; aspirin 81 mg tablet,delayed release (DR/EC) 81 mg PO DAILY losartan 100 MG tablet 100 mg PO QHS atenolol 50 mg tablet 75 mg PO QHS cholecalciferol (vitamin D3) 50 mcg (2,000 unit) capsule 8,000 unit PO DAILY atenolol 50 mg tablet 50 mg PO DAILY amlodipine 10 mg tablet 10 mg PO DAILY pantoprazole 40 mg Tablet,Delayed Release (Dr/Ec) 40 mg PO DAILY 30 Days Qty: 30 0RF acetaminophen 500 mg Tablet 1,000 mg PO Q8 PRN (Reason: fever or pain) nabumetone 500 mg tablet 500 mg PO BID Primary Care Provider: Swapna Lowry Referrals: Swapna Lowry DO [Primary Care Provider] - Print Language: Romanian Disposition Disposition: Acute Care Hospital [facility]
[2025-01-29 17:44] LABS: Anion Gap 14 (5-15); BUN 51 mg/dL (4-19); BUN/Creat Ratio 15.3 RATIO (10-20); Calcium,Total 9.6 mg/dL (7.6-11.0); Carbon Dioxide 15.2 mmol/L (21.0-32.0); Chloride 102 mmol/L (98-108); Creatinine, Serum 3.31 mg/dL (0.70-1.20); EST Glomerular Filtration Rate 13 (>60); Estimated Creatinine Clearance 12.17 ml/min (50-250); Glucose 140 mg/dL (70-99); Potassium 5.6 mmol/L (3.3-5.1); Sodium Level 131 mmol/L (133-145)
[2025-01-29] MEDS: Albuterol *CONC* 2.5mg/0.5mL VIAL.NEB. 10 MG INHALATION (18:03)
--- NOTE | 2025-01-29 18:06 | PCM.HP.STD ---
HPI - General General Date of Admission: 01/29/25 Date of Service: 01/29/25 Chief Complaint: Abnormal labs HPI Narrative CASSANDRA DELGADO, is a 85 F who presented to [facility] ED on 01/29/2025 with abnormal labs. Patient had blood work drawn yesterday that was ordered by her PCP that showed worsening creatinine of 3.3 and potassium 6.1. Creatinine was normal at 1.1 in October. Because of this, she was sent to the ED for further evaluation. In the ED she was hemodynamically stable on room air. Repeat labs confirm creatinine 3.31, potassium 5.6. EKG showed no concerning findings. She was treated medically for the hyperkalemia. Hospitalist was then contacted for admission. I saw the patient at bedside in the ED, daughter was present. Patient was mildly fatigued appearing but otherwise sitting back comfortably in bed, conversing normally, in no acute distress. Patient states that over the past few months she has had left hip pain from reported bursitis and right sciatic pain. She has been seeing Dr. Mills with orthopedics for this. She was taking Tylenol and ibuprofen in an alternating fashion until early December without much improvement in pain. She was switched to Tylenol and nabumetone twice daily scheduled in early December. She states that she still does not think it has helped that much for her pain. She does note that she has been taking this on a very regular basis. She is on losartan for high blood pressure and has been taking this as prescribed. She reports fatigue and mild appetite suppression but otherwise denies any new concerns from previous today. Will be admitted for further management. [facility] Medical History Macular degeneration Vision problem Skin cancer H/O: pneumonia Osteopenia IBS (irritable bowel syndrome) Type 2 diabetes mellitus Cataracts, bilateral Back problem Essential hypertension Fibromyalgia GERD (gastroesophageal reflux disease) Atherosclerotic heart disease of [place] coronary artery without angina pectoris Osteoarthritis of left hip Gout Hyperlipidemia Premature ventricular contraction Premature atrial contractions Hypothyroidism Home Medications ?Medication ?Instructions ?Recorded ?Last Taken ?Type losartan 100 mg tablet 100 mg PO QHS BLOOD PRESSURE 07/08/17 02/26/24 21:30 History lactobacillus combination no.9 4 4,000 mmu cells PO QDAY Probiotic 03/30/18 Unknown History billion cell capsule (Adult 50 Plus Probiotic) diphenhydramine HCl 25 mg capsule 25 mg PO Q6H PRN itching 06/05/20 02/25/24 History (Allergy Relief (diphenhydramine)) liothyronine 5 mcg tablet 5 mcg PO DAILY Thyroid 06/05/20 02/27/24 06:15 History vitamins A,C,N-woxq-tmwnrj 4,296 1 cap PO BID Supplement 06/22/21 02/27/24 11:45 History mcg-226 mg-90 mg capsule (PreserVision AREDS) aspirin 81 mg tablet,delayed 81 mg PO DAILY Heart 07/15/22 Unknown History release atenolol 50 mg tablet 75 mg PO QHS BLOOD PRESSURE 07/15/22 Unknown History levothyroxine 150 mcg tablet 150 mcg PO .COMPLEX Thyroid 07/15/22 02/27/24 06:15 History amlodipine 10 mg tablet 10 mg PO DAILY Blood pressure 02/27/24 02/27/24 08:30 History atenolol 50 mg tablet 50 mg PO DAILY Blood Pressure 02/27/24 02/27/24 08:30 History pantoprazole 40 mg tablet,delayed 40 mg PO DAILY 30 days #30 tabs 03/10/24 Unknown Rx release acetaminophen 500 mg tablet 1,000 mg PO Q8 PRN fever or pain 01/29/25 Unknown History cholecalciferol (vitamin D3) 50 6,000 unit PO DAILY 01/29/25 Unknown History mcg (2,000 unit) capsule (Vitamin D3) nabumetone 500 mg tablet 500 mg PO BID 01/29/25 Unknown History Allergy/AdvReac Type Severity Reaction Status Date / Time levofloxacin (From Levaquin) Allergy Unknown Verified 01/29/25 16:28 morphine Allergy Itching Verified 01/29/25 16:28 prednisone Allergy Swelling Verified 01/29/25 16:28 celecoxib (From Celebrex) AdvReac Upset Verified 01/29/25 16:28 Stomach hydrochlorothiazide AdvReac DIZZINESS Verified 01/29/25 16:28 niacin AdvReac HOT FLASHES Verified 01/29/25 16:28 pitavastatin (From Livalo) AdvReac MUSCLE Verified 01/29/25 16:28 ACHES Family History Mother Hypertension Arthritis Diabetes Thyroid disorder Sister CAD (coronary artery disease) Hypertension Arthritis Diabetes Heart disease Thyroid disorder Other Lupus Surgical History History of total right hip arthroplasty History of bilateral cataract extraction History of carpal tunnel release History of hip replacement (~07/2017) History of shoulder surgery History of knee replacement procedure of right knee History of tubal ligation History of cholecystectomy Social History household members: none Smoking Status: Never smoker alcohol intake: never substance use type: does not use what type of physical activity do you participate in: none ROS Constitutional Constitutional: Reports fatigue; Denies chills, fever(s) or weakness Eyes Eyes: Denies change in vision Cardiovascular Cardiovascular: Denies chest pain Respiratory/Chest Respiratory/Chest: Denies shortness of breath at rest Gastrointestinal Gastrointestinal: Reports nausea; Denies abdominal pain, constipation, diarrhea or vomiting Genitourinary Genitourinary: Denies dysuria Musculoskeletal Musculoskeletal: Denies arthralgias or myalgias Neurologic Neurologic: Denies dizziness, focal weakness or headache(s) Vital Signs Vital Signs Vital Signs: 01/29/25 16:28 01/29/25 16:50 Temperature 98.0 F Temperature Source Oral Pulse Rate 70 Respiratory Rate 16 Respiratory Effort Normal Respiratory Pattern Normal Blood Pressure 165/60 H Blood Pressure Mean 95 Pulse Ox 97 Oxygen Delivery Method Room Air Weight Weight: 83.461 kg Body Mass Index (BMI) 34.7 Physical Exam Const alert, oriented x3 and no apparent distress Constitutional Narrative: Elderly female, class I obesity, mildly fatigued appearing but otherwise sitting back comfortably in bed, conversing normally, in no acute distress. General Appearance: cooperative and comfortable HEENT normocephalic, head/scalp atraumatic, hearing grossly normal bilaterally, nasal mucous membranes and turbinates normal and moist oral mucous membranes Eyes PERRL, EOMs intact bilaterally and conjunctivae normal Neck full ROM Chest inspection of chest normal Resp normal respiratory effort, normal air movement, no use of accessory muscles and clear to auscultation bilaterally Cardio regular rate, regular rhythm, no murmurs and peripheral pulses 2+ throughout GI normal to inspection, nondistended, normoactive bowel sounds, soft to palpation, non-tender and non-distended Back/Spine normal ROM Extremity normal to inspection and no pedal edema Skin no rashes or lesions noted Neuro moves all extremities and no focal motor deficits Speech: speech normal Motor Exam: strength 5/5 throughout Psych mental status grossly normal Results Lab / Micro Data 01/29/25 16:52 01/29/25 16:52 Labs: Laboratory Results - last 24 hr 01/29/25 16:52: WBC 8.6, RBC 3.62 L, Hgb 11.2 L, Hct 33.3 L, MCV 92.0, MCH 30.9, MCHC 33.6, RDW Std Deviation 59.1 H, RDW Coeff of Andrew 17.4 H, Plt Count 168, MPV 10.5, Immature Gran % (Auto) 0.300, Neut % (Auto) 66.4, Lymph % (Auto) 20.4, [place] % (Auto) 8.0, Eos % (Auto) 4.3, Baso % (Auto) 0.6, Absolute Neuts (auto) 5.7, Absolute Lymphs (auto) 1.75, Nucleated RBC % 0, Sodium 131 L, Potassium 5.6 H, Chloride 102, Carbon Dioxide 15.2 L, Anion Gap 14, BUN 51 H, Creatinine 3.31 H, Estim Creat Clear Calc 12.17 L, Est GFR (MDRD) Non-Af 13 L, BUN/Creatinine Ratio 15.3, Glucose 140 H, Calcium 9.6 Assessment & Plan Assessment/Plan (1) [place] (acute kidney injury): (2) Acute hyperkalemia: PLAN: Plan Patient is an 85-year-old female who presented to [facility] ED on 01/29/2025 with abnormal labs. 1. [place] with hyperkalemia and metabolic acidosis ? Admit under inpatient status to PCU. Baseline creatinine 1.1. Creatinine 3.31, BUN 51, potassium 5.6, bicarb 15 on admit. Highest suspicion is multifactorial due to heavy NSAID use for hip pain as below with home losartan contributing. Given 1 L of IV fluids in the ED. Urine sodium and creatinine ordered to calculate FeNa. Renal/bladder ultrasound ordered. Patient notably had CT abdomen pelvis done in October for concern for mesenteric ischemia that showed less than 50% stenosis of the bilateral renal arteries. Follow-up a.m. BMP and monitor urine output. Hold home losartan. NSAIDs discontinued. Can consider nephrology consult if needed. 2. Chronic bilateral hip pain with sciatica ? Was seen in the ED for this in late October and treated with a Medrol Dosepak and short course oxycodone?acetaminophen for pain control with only mild improvement. Has now been following with Dr. Mills for this. No plans for surgical invention at this time. Was treating with Tylenol and NSAIDs on rotating schedule. NSAIDs discontinued as above. Will continue home Tylenol but may need to add further medication for pain control moving forward. 3. History of nonobstructive CAD, hypertension, hyperlipidemia, history of PACs and PVCs ? Hypertensive to the 170 systolic on admit. EKG with normal sinus rhythm and no ST changes noted. Continue home aspirin, amlodipine, and atenolol. Holding home losartan as above. IV hydralazine ordered as needed for SBP greater than 170. 4. Hypothyroidism ? Continue home Synthroid and liothyronine. 5. GERD ? Continue home PPI. 6. Class I obesity ? BMI 34 on admit. Complicates hospital course, care and prognosis. DVT prophylaxis: Heparin subcu CODE STATUS: Full code, verified Expected disposition: Home, TBD Total clinical time spent by myself addressing the patient's medical issues, reviewing all the data, and collaborating with patient's care team: 75 minutes.
[2025-01-29] MEDS: 0.9% Normal Saline (500mL Bag) 500 ML 999 ML IV (18:10)
--- NOTE | 2025-01-29 18:16 | US_ITS ---
PROCEDURE: KIDNEY AND BLADDER 01/29/2025 REASON FOR EXAM: R/O POSTOBSTRUCTIVE [place] TECHNIQUE: KIDNEY AND BLADDER COMPARISON: CT abdomen pelvis 10/2024. FINDINGS: Kidneys: Normal parenchymal thicknesses and echotextures. [place]: No hydronephrosis. Cysts or Masses: No cysts or large solid renal masses. Bladder: No bladder wall thickening. RIGHT Kidney Size: 9.6 x 4.6 x 4.1 cm Volume: 95 mL Parenchymal Thickness: 15 mm (>14mm is normal) Cortical Thickness (if discernible): N/a (>6mm is normal) LEFT Kidney Size: 8.5 x 3.4 x 4.6 cm Volume: 70 mL Parenchymal Thickness: 12 mm (>14mm is normal) Cortical Thickness (if discernible): N/a (>6mm is normal) US/Kidney and Bladder IMPRESSION: NORMAL RENAL ULTRASOUND. Reading Location: [id number]
[2025-01-29] MEDS: Dextrose 10%-Water 250 ML 999 ML IV (18:17)
[2025-01-29 18:28] LABS: Bedside Glucose 123 mg/dL (74-106)
[2025-01-29] MEDS: Insulin Lispro 10 UNIT in Syringe 0 ML 6 UNIT IV (18:40)
[2025-01-29] MEDS: 0.9% Saline Lock 10 ML Syringe IV ×2 (20:24→22:03)
[2025-01-29] MEDS: Multivitamin (Healthy Eyes) Capsule 1 CAP PO (22:01)
[2025-01-29] MEDS: hydrALAZINE 20 MG/ML Vial 10 MG IV (22:02)
[2025-01-29] MEDS: Atenolol 25 MG Tablet 75 MG PO (22:02)
[2025-01-30] VITALS (8 sets, daily range): BP systolic 133–169; BP diastolic 54–72; PULSE 64–66; RESP 16–18; TEMP 36.1–36.9; O2SAT 96–98
[2025-01-30 04:35] LABS: Hematocrit 32.5 % (37-47); Mean Corp Hgb Conc 33.8 g/dL (32-36); Mean Corpuscular Hgb 30.8 pg (27.0-32.0); Mean Platelet Vol. 10.7 fl (6.2-12.0); Platelet Count 165 K/mm3 (150-450); RBC Distribution Width CV 17.5 % (11.6-14.6); RBC Distribution Width SD 58.6 fl (35.1-43.9); Red Blood Count 3.57 M/mm3 (4.2-5.4); White Blood Count 10.8 K/mm3 (4.4-11.0)
[2025-01-30] MEDS: Liothyronine 5 MCG Tablet PO (05:09)
[2025-01-30] MEDS: Levothyroxine 150 MCG Tablet PO (05:09)
[2025-01-30 05:20] LABS: Anion Gap 13 (5-15); BUN 49 mg/dL (4-19); BUN/Creat Ratio 17.2 RATIO (10-20); Calcium,Total 9.9 mg/dL (7.6-11.0); Carbon Dioxide 16.3 mmol/L (21.0-32.0); Chloride 105 mmol/L (98-108); Creatinine, Serum 2.82 mg/dL (0.70-1.20); EST Glomerular Filtration Rate 16 (>60); Estimated Creatinine Clearance 14.32 ml/min (50-250); Glucose 91 mg/dL (70-99); Potassium 5.5 mmol/L (3.3-5.1); Sodium Level 135 mmol/L (133-145)
[2025-01-30] MEDS: Pantoprazole Sodium 40 MG Tablet PO (08:05)
[2025-01-30] MEDS: amLODIPine 10 MG Tablet PO (08:05)
[2025-01-30] MEDS: Aspirin E.C. 81 MG Tablet PO (08:05)
[2025-01-30] MEDS: Atenolol 50 MG Tablet PO (08:05)
[2025-01-30] MEDS: Lactobacillis Acidophilus 1 CAP PO (08:05)
[2025-01-30] MEDS: Multivitamin (Healthy Eyes) Capsule 1 CAP PO ×2 (08:05→23:16)
[2025-01-30] MEDS: 0.9% Saline Lock 10 ML Syringe IV ×2 (08:07→14:30)
--- NOTE | 2025-01-30 10:20 | PCM.PN.HOSP ---
Reason for Visit Reason for Visit: Diagnoses Hyperkalemia (01/29/25) Acute kidney failure, unspecified (01/29/25) Objective Data Objective Data Vital Signs: Vital Signs Temp Pulse Resp BP Pulse Ox O2 Del Method 97.0 F L 65 16 133/54 H 98 Room Air 01/30/25 10:01 01/30/25 10:01 01/30/25 10:01 01/30/25 10:01 01/30/25 10:01 01/30/25 10:01 Oxygen Delivery Method Room Air Weight: 184 lb 11.958 oz Body Mass Index (BMI) 34.9 Intake & Output: Intake and Output for Last 24 Hours 01/28/25 01/29/25 01/30/25 23:59 23:59 23:59 Intake Total 950 / 950 100 / 100 Output Total 150 / 150 Balance 950 / 950 -50 / -50 Lab / Micro Data 01/30/25 03:44 01/30/25 03:44 Labs: Laboratory Results - last 24 hr 01/29/25 16:52: WBC 8.6, RBC 3.62 L, Hgb 11.2 L, Hct 33.3 L, MCV 92.0, MCH 30.9, MCHC 33.6, RDW Std Deviation 59.1 H, RDW Coeff of Andrew 17.4 H, Plt Count 168, MPV 10.5, Immature Gran % (Auto) 0.300, Neut % (Auto) 66.4, Lymph % (Auto) 20.4, Kings % (Auto) 8.0, Eos % (Auto) 4.3, Baso % (Auto) 0.6, Absolute Neuts (auto) 5.7, Absolute Lymphs (auto) 1.75, Nucleated RBC % 0, Sodium 131 L, Potassium 5.6 H, Chloride 102, Carbon Dioxide 15.2 L, Anion Gap 14, BUN 51 H, Creatinine 3.31 H, Estim Creat Clear Calc 12.17 L, Est GFR (MDRD) Non-Af 13 L, BUN/Creatinine Ratio 15.3, Glucose 140 H, Calcium 9.6 01/29/25 18:11: POC Glucose 123 H 01/30/25 03:44: WBC 10.8, RBC 3.57 L, Hgb 11.0 L, Hct 32.5 L, MCV 91.0, MCH 30.8, MCHC 33.8, RDW Std Deviation 58.6 H, RDW Coeff of Andrew 17.5 H, Plt Count 165, MPV 10.7, Sodium 135, Potassium 5.5 H, Chloride 105, Carbon Dioxide 16.3 L, Anion Gap 13, BUN 49 H, Creatinine 2.82 H, Estim Creat Clear Calc 14.32 L, Est GFR (MDRD) Non-Af 16 L, BUN/Creatinine Ratio 17.2, Glucose 91, Calcium 9.9 Radiography Diagnostic Testing: Radiology Impression Renal Ultrasound 01/29/25 18:16 IMPRESSION: NORMAL RENAL ULTRASOUND. Reading Location: [id number] Physical Exam Narrative Seen and examined. Patient was admitted for increased creatinine level, [place]. She has been using NSAIDs for about 1 and half months for sciatica pain. She denies prior cardiac disease or lung disease or kidney disease which required dialysis or [place]. She is urinating more frequent but less amount. Physical exam General: Alert, Oriented x3, Cooperative HEENT: Atraumatic, PERRLA, EOMI, Normocephalic. Oral: No Gingival or Mucosal Lesions/ Ulcerations Neck: Supple, No JVD, Negative Carotid Bruits Chest wall/Lungs: Air entry diminished in bilateral lung bases. No crepitation/rhonchi Cardiovascular: Sinus rhythm, Normal S1,S2, No M/G/R Abdomen: Bowel Sounds Present, Soft, Non Tender, Non-Distended : No dysuria. No renal angle tenderness. No suprapubic tenderness. Extremities: No edema, Capillary Refill Less than 3 Seconds Skin: No rashes, No breakdown Musculoskeletal: No Tenderness to Palpation of Joints or Extremities Neurological: Cranial nerves II-XII grossly intact, DTR 2+/4. No acute focal neurological deficit. Psych/Mental Status: Normal Affect, Appropriate. Assessment & Plan Assessment/Plan (1) [place] (acute kidney injury): (2) Acute hyperkalemia: PLAN: Plan Patient is an 85-year-old female who presented to [facility] ED on 01/29/2025 with abnormal labs with high creatinine on follow-up 3-month lab from PCP. Complain of shortness of breath but that is chronic. Her creatinine was 1.1 in October of this year and last creatinine was 3.3, hyperkalemia K6.1. Repeat labs confirmed creatinine 3.31 and potassium 5.6. EKG showed no concerning findings of hyperkalemia 1. [place] with hyperkalemia and metabolic acidosis ? Admit under inpatient status to PCU. Baseline creatinine 1.1. Creatinine 3.31, BUN 51, potassium 5.6, bicarb 15 on admit. Highest suspicion is multifactorial due to heavy NSAID use for hip pain as below with home losartan contributing. Given 1 L of IV fluids in the ED. Urine sodium and creatinine ordered to calculate FeNa. Renal/bladder ultrasound ordered. Patient notably had CT abdomen pelvis done in October for concern for mesenteric ischemia that showed less than 50% stenosis of the bilateral renal arteries. 01/30: Follow-up labs shows improvement in creatinine, 2.82, BUN 49. Hyperkalemia mild but patient not having any clinical or EKG signs of hyperkalemia. Kidneys and bladder ultrasound reported normal. Monitor kidney function. Monitor kidney function. Continue IV fluid. [place] most likely due to NSAID, nabumetone. Different organ-specific adverse effect of NSAIDs explained to the patient and advised not to take it in the future is scheduled for a long time.Follow-up a.m. Continue holding losartan. NSAIDs discontinued. 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 2. Chronic bilateral hip pain with sciatica for last few months ? Was seen in the ED for this in late October and treated with a Medrol Dosepak and short course oxycodone?acetaminophen for pain control with only mild improvement. Has now been following with Dr. Mills for this. No plans for surgical invention at this time. Was treating with Tylenol and NSAIDs on rotating schedule. NSAIDs discontinued as above. 01/30: Tylenol and steroid might be considered for back pain otherwise opioid medications, moving forward 3. History of nonobstructive CAD, hypertension, hyperlipidemia, history of PACs and PVCs ? Hypertensive to the 170 systolic on admit. EKG with normal sinus rhythm and no ST changes noted. Continue home aspirin, amlodipine, and atenolol. Holding home losartan as above. IV hydralazine ordered as needed for SBP greater than 170. 01/30: BP 133/54 4. Hypothyroidism ? Continue home Synthroid and liothyronine. 5. GERD ? Continue home PPI. 6. Class I obesity ? BMI 34 on admit. Complicates hospital course, care and prognosis. DVT prophylaxis: Heparin subcu CODE STATUS: Full code, verified Laboratory Results - last 24 hr 01/29/25 16:52: WBC 8.6, RBC 3.62 L, Hgb 11.2 L, Hct 33.3 L, MCV 92.0, MCH 30.9, MCHC 33.6, RDW Std Deviation 59.1 H, RDW Coeff of Andrew 17.4 H, Plt Count 168, MPV 10.5, Immature Gran % (Auto) 0.300, Neut % (Auto) 66.4, Lymph % (Auto) 20.4, Kings % (Auto) 8.0, Eos % (Auto) 4.3, Baso % (Auto) 0.6, Absolute Neuts (auto) 5.7, Absolute Lymphs (auto) 1.75, Nucleated RBC % 0, Sodium 131 L, Potassium 5.6 H, Chloride 102, Carbon Dioxide 15.2 L, Anion Gap 14, BUN 51 H, Creatinine 3.31 H, Estim Creat Clear Calc 12.17 L, Est GFR (MDRD) Non-Af 13 L, BUN/Creatinine Ratio 15.3, Glucose 140 H, Calcium 9.6 01/29/25 18:11: POC Glucose 123 H 01/30/25 03:44: WBC 10.8, RBC 3.57 L, Hgb 11.0 L, Hct 32.5 L, MCV 91.0, MCH 30.8, MCHC 33.8, RDW Std Deviation 58.6 H, RDW Coeff of Andrew 17.5 H, Plt Count 165, MPV 10.7, Sodium 135, Potassium 5.5 H, Chloride 105, Carbon Dioxide 16.3 L, Anion Gap 13, BUN 49 H, Creatinine 2.82 H, Estim Creat Clear Calc 14.32 L, Est GFR (MDRD) Non-Af 16 L, BUN/Creatinine Ratio 17.2, Glucose 91, Calcium 9.9 Clinical Impression(s) from Imaging Studies Renal Ultrasound 01/29/25 18:16 IMPRESSION: NORMAL RENAL ULTRASOUND. Reading Location: [id number] Charges/Coding Visit Charges Inpatient E&M: 23622 Subs Hosp L2
[2025-01-30 14:12] LABS: Osmolality, Serum 305 mOsm/KG (280-301)
[2025-01-30] MEDS: Sodium Polystyrene Sulfonate 15 GM/60 ML UDC 30 GM PO (14:15)
[2025-01-30] MEDS: 0.9% Normal Saline (1000mL) 1,000 ML 75 ML IV (14:15)
[2025-01-30] MEDS: Sodium Bicarbonate 50 MEQ in Dextrose 5%-Water (1000mL Bag) 1,000 ML 100 MEQ IV (20:18)
[2025-01-30 21:21] LABS: Mucous, Urine 0 SEEN /hpf (<or=2+)
[2025-01-30 21:27] LABS: Color, Urine Yellow (Yellow); Glucose, Dipstick Normal (Normal); Ketone-Dipstick Negative (Negative); Leukocyte Esterase-Dipstick 500 /ul (Negative); Nitrite-Dipstick Negative (Negative); Occult Blood-Urine Negative /ul (Negative); Protein-Dipstick 15 mg/dl (Negative); Urine Bilirubin Dipstick Negative (Negative); Urine Clarity Clear (Clear); Urine Urobilinogen Normal (Normal)
[2025-01-30 21:42] LABS: Microalbumin,Random Urine 38.6 mg/L (NO RANGE EST.); Protein, Urine (Random) 10.8 mg/dL (0.0-12.0); Protein:Creat Ratio 152 mg/g CRE (0-200); Urine Chloride 47 mmol/L (Not Establ.); Urine Potassium 17.8 mmol/L (Not Establ.); Urine Sodium 69 mmol/L (Not Establ.)
[2025-01-30 21:59] LABS: Urine Sodium 69 mmol/L (Not Establ.)
[2025-01-30 22:12] LABS: Bacteria 1+ /hpf (None Seen); Red Blood Cells-Urine 0-5 SEEN /hpf (0-5); Squamous Epithelial Cells - UA 0-5 SEEN /hpf (5-10); Transitional Epithelial - Ur 0-5 SEEN /hpf (0-5); White Blood Cells 10-25 SEEN /hpf (0-5)
[2025-01-30] MEDS: Atenolol 25 MG Tablet 75 MG PO (23:16)
[2025-01-31 05:00] VITALS: BP 162/74; PULSE 64; RESP 16; TEMP 36.8; O2SAT 98
[2025-01-31] MEDS: Levothyroxine 150 MCG Tablet PO (05:02)
[2025-01-31] MEDS: Liothyronine 5 MCG Tablet PO (05:02)
[2025-01-31 06:27] LABS: Anion Gap 15 (5-15); BUN 45 mg/dL (4-19); BUN/Creat Ratio 17.7 RATIO (10-20); Calcium,Total 9.3 mg/dL (7.6-11.0); Carbon Dioxide 15.7 mmol/L (21.0-32.0); Chloride 104 mmol/L (98-108); Creatinine, Serum 2.56 mg/dL (0.70-1.20); EST Glomerular Filtration Rate 18 (>60); Estimated Creatinine Clearance 15.78 ml/min (50-250); Glucose 132 mg/dL (70-99); Potassium 4.3 mmol/L (3.3-5.1); Sodium Level 134 mmol/L (133-145)
[2025-01-31 09:00] VITALS: BP 152/62; PULSE 63; RESP 18; TEMP 36.4; O2SAT 98
[2025-01-31] MEDS: Sodium Bicarbonate 50 MEQ in Dextrose 5%-Water (1000mL Bag) 1,000 ML 150 MEQ IV (09:03)
[2025-01-31 09:07] VITALS: BP 152/62; PULSE 63
[2025-01-31] MEDS: Lactobacillis Acidophilus 1 CAP PO (09:07)
[2025-01-31] MEDS: Multivitamin (Healthy Eyes) Capsule 1 CAP PO (09:07)
[2025-01-31] MEDS: hydrALAZINE 25 MG Tablet PO ×2 (09:07→14:03)
[2025-01-31] MEDS: amLODIPine 10 MG Tablet PO (09:07)
[2025-01-31] MEDS: Atenolol 50 MG Tablet PO (09:07)
[2025-01-31] MEDS: Pantoprazole Sodium 40 MG Tablet PO (09:07)
[2025-01-31] MEDS: Aspirin E.C. 81 MG Tablet PO (09:07)
--- NOTE | 2025-01-31 10:00 | CASEMGMT ---
RN CM Face to Face with patient for initial transition planning/care coordination assessment. RN CM introduced self and role at [facility]. Patient sitting in chair, alert and oriented. Patient willing to participate in assessment and is able to answer all questions appropriately. Care providers, pharmacy, and demographics verified. Strata: 2 PCP: Alen Specialists: jacob Mills Pharmacy: [facility] at [facility]: yes Living Will/HPOA: yes, daughter Michaela Zelaya LNOK: son, daughters Living Arrangements: Patient is currently staying with daughter in a single story home with no steps to enter. Patient states she is independent at home. Transportation: daughter DME/HHC: Patient states she has shower chair, cane, grab bars, and walker at home. No previous HHC. Patient has been to [facility] and [facility] in the past. Patient wishes to discharge home, denies need for home health at this time. Patient states she has no further needs or concerns at this time. CM to follow for discharge planning needs that may arise. Disposition Plan: Patient to discharge home with family support and follow-up plans in place. Lindy POOL, RN, CM
[2025-01-31] MEDS: Acetaminophen 500 MG Tablet 1000 MG PO (10:27)
--- NOTE | 2025-01-31 12:28 | PCM.DC.SUM ---
Providers Date of Admission: 01/29/25 Date of Discharge: 01/31/25 Primary Care Physician: Dr. Swapna Lowry, Consultations 01/30/25 19:48 Consult: Nephrology Routine Consulting Provider: Rashmi Moran Reason for Consult: [place] w/ hyperK and metabolic acidosis EMERGENT Consult: No MD Notified: Yes Date Notified: 01/31/25 Time Notified: 06:34 Method of Notification: Answering Service Reason For Visit: WORSENING [place] W/ HYPERKALEMIA Diagnosis Discharge Diagnosis (1) [place] (acute kidney injury): Status: Acute Code(s): N17.9 - Acute kidney failure, unspecified (2) Acute hyperkalemia: Status: Acute Code(s): E87.5 - Hyperkalemia Medications at Discharge Home Medications lactobacillus combination no.9 4 billion cell capsule (Adult 50 Plus Probiotic) 4,000 mmu cells PO QDAY Probiotic 03/30/18 diphenhydramine HCl 25 mg capsule (Allergy Relief (diphenhydramine)) 25 mg PO Q6H PRN itching 06/05/20 liothyronine 5 mcg tablet 5 mcg PO DAILY Thyroid 06/05/20 vitamins A,C,H-pkef-lrcxot 4,296 mcg-226 mg-90 mg capsule (PreserVision AREDS) 1 cap PO BID Supplement 06/22/21 aspirin 81 mg tablet,delayed release 81 mg PO DAILY Heart 07/15/22 atenolol 50 mg tablet 75 mg PO QHS BLOOD PRESSURE 07/15/22 levothyroxine 150 mcg tablet 150 mcg PO .COMPLEX Thyroid 07/15/22 amlodipine 10 mg tablet 10 mg PO DAILY Blood pressure 02/27/24 atenolol 50 mg tablet 50 mg PO DAILY Blood Pressure 02/27/24 pantoprazole 40 mg tablet,delayed release 40 mg PO DAILY reflux 30 days #30 tabs 03/10/24 acetaminophen 500 mg tablet 1,000 mg PO Q8 PRN fever or pain 01/29/25 cholecalciferol (vitamin D3) 50 mcg (2,000 unit) capsule (Vitamin D3) 6,000 unit PO DAILY vitamin 01/29/25 hydralazine 25 mg tablet 25 mg PO TID 30 days #90 tabs 01/31/25 Hospital Course Operations None Procedures EKG and - (Renal ultrasound) Summary of Care Provided Minutes Spent on Discharge: 35 Hospital Course: Patient is an 85-year-old female who presented to [facility] ED on 01/29/2025 with abnormal labs. Hospital course as noted below. Patient discharged home in stable condition on 01/31. 1. [place] with hyperkalemia and metabolic acidosis, improving ? Nephrology followed. Baseline creatinine 1.1. Creatinine 3.31, BUN 51, potassium 5.6, bicarb 15 on admit. Renal ultrasound normal. Notably did have CT abdomen pelvis done in October for concern for mesenteric ischemia that showed approximately 50% stenosis of the bilateral renal arteries. Labs slowly improving during hospitalization, creatinine 2.56 and potassium 4.3 on discharge. Per nephrology, several possible etiologies are possible. UA showed 1+ protein and significant amount of leukocytes and with no UTI findings, AIN is in the differential. 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 Has been on Protonix for about a year which can possibly cause AIN. She also takes several supplements that could cause AIN. Additionally, per nephrology's read the CT angiogram seem to show more renal artery stenosis that was called. Per nephrology, recommended discontinuing losartan and NSAIDs and minimizing supplements use. Recommended repeat BMP in 5 to 7 days to ensure kidney function is continuing to improve. No need for nephrology follow-up, can follow-up with PCP as needed. 2. Chronic bilateral hip pain with sciatica ? Was seen in the ED for this in late October and treated with a Medrol Dosepak and short course oxycodone?acetaminophen for pain control with only mild improvement. Has now been following with Dr. Mills for this. No plans for surgical invention at this time. Was treating with Tylenol and NSAIDs on rotating schedule. NSAIDs discontinued as above. As the pain seems to be neuropathic, can consider either gabapentin or Lyrica but per nephrology, would wait until [place] improves further before starting either of these medications. Continue Tylenol and recommend close outpatient follow-up with PCP and orthopedics on discharge. 3. History of nonobstructive CAD, hypertension, hyperlipidemia, history of PACs and PVCs ? Hypertensive to the 170 systolic on admit. EKG with normal sinus rhythm and no ST changes noted. Continue home aspirin, amlodipine, and atenolol. Losartan discontinued as above. Remained hypertensive to the 150s to 160s so hydralazine 25 mg 3 times daily was added and will be continued on discharge. Recommend close outpatient follow-up with PCP. 4. Hypothyroidism ? Continue home Synthroid and liothyronine. 5. GERD ? Continue home PPI. 6. Class I obesity ? BMI 34 on admit. Complicated hospital course, care and prognosis. Total clinical time spent by myself addressing the patient's medical issues, reviewing all the data, and collaborating with patient's care team: 35 minutes. Physical Exam Const alert, oriented x3 and no apparent distress Constitutional Narrative: Elderly female, class I obesity, mildly fatigued appearing but otherwise sitting back comfortably in bed, conversing normally, in no acute distress. Stable. General Appearance: cooperative and comfortable HEENT normocephalic, head/scalp atraumatic, hearing grossly normal bilaterally, nasal mucous membranes and turbinates normal and moist oral mucous membranes Eyes PERRL, EOMs intact bilaterally and conjunctivae normal Neck full ROM Chest inspection of chest normal Resp normal respiratory effort, normal air movement, no use of accessory muscles and clear to auscultation bilaterally Cardio regular rate, regular rhythm, no murmurs and peripheral pulses 2+ throughout GI normal to inspection, nondistended, normoactive bowel sounds, soft to palpation, non-tender and non-distended Back/Spine normal ROM Extremity normal to inspection and no pedal edema Skin no rashes or lesions noted Neuro moves all extremities and no focal motor deficits Speech: speech normal Motor Exam: strength 5/5 throughout Psych mental status grossly normal Weight / BMI Weight Weight: 83.8 kg Body Mass Index (BMI) 34.9 ABG / Lab / Microbiology Data 01/30/25 03:44 01/31/25 05:22 Laboratory: Laboratory Results - last 24 hr 01/30/25 13:33: Serum Osmolality 305 H 01/30/25 21:21: Urine Color Yellow, Urine Clarity Clear, Urine pH 6.0, Ur Specific Ponce 1.010, Urine Protein 15 H, Urine Glucose (UA) Normal, Urine Ketones Negative, Urine Occult Blood Negative, Urine Nitrite Negative, Urine Bilirubin Negative, Urine Urobilinogen Normal, Ur Leukocyte Esterase 500 H, Urine RBC 0-5 SEEN, Urine WBC 10-25 SEEN, Ur Squamous Epith Cells 0-5 SEEN, Ur Transition Epith Cell 0-5 SEEN, Urine Bacteria 1+, Urine Mucus 0 SEEN, Ur Random Microalbumin 38.6, U Random Total Protein 10.8, Ur Random Sodium 69 01/30/25 21:21: Ur Random Sodium 69, Urine Creatinine 71.60 01/30/25 21:21: Urine Creatinine 71.00, Protein/Creatinin Ratio 152, Urine Potassium 17.8, Urine Chloride 47 01/31/25 05:22: Sodium 134, Potassium 4.3, Chloride 104, Carbon Dioxide 15.7 L, Anion Gap 15, BUN 45 H, Creatinine 2.56 H, Estim Creat Clear Calc 15.78 L, Est GFR (MDRD) Non-Af 18 L, BUN/Creatinine Ratio 17.7, Glucose 132 H, Calcium 9.3 D/C Instructions DC O2, CPAP, BIPAP Needs Home O2 Discharge instructions: No Meaningful Use Info Meaningful Use Meaningful Use Diagnoses (Choose all that apply): None applicable Ischemic Stroke Statin Dosing Therapy Reference: STATIN DOSE THERAPY REFERENCE: * Patients > 75 years receive moderate or high dose statin therapy. * Patients 75 years or YOUNGER should receive HIGH intensity statin dose unless contraindicated. You will be required to document reason for non-treatment if statin daily dose does not meet guidelines. HIGH DOSE STATIN THERAPY DAILY Atorvastatin > than or = to 40 mg Rosuvastatin > than or = to 20 mg Amlodipine + Atorvastatin > than or = to 2.5/40 mg Ezetimibe + Simvastatin 10/80 mg Simvastatin 80mg Discharge Plan Admission Admit Date/Time: 01/29/25 18:11 Primary Reason for Your Visit: Abnormal labs Attending Provider: Tomasz Parker Primary Care Provider: Swapna Lowry Consulting Providers: Tomasz Parker; Luis A Lantigua; Rashmi Moran Instructions Additional Instructions / Restrictions: Stop taking losartan and starting hydralazine 3 times daily for your blood pressure. Please have a repeat BMP drawn to monitor your kidney function and potassium level at the end of this week. Follow-up with your PCP in the next few weeks. Please discuss with either your PCP or Dr. Mills regarding having a pain management consult placed for you. Discharge Orders/Prescriptions Prescriptions: New hydralazine 25 mg Tablet 25 mg PO TID 30 Days Qty: 90 2RF Continued Adult 50 Plus Probiotic 4 billion cell capsule 4,000 mmu cells PO QDAY diphenhydramine HCl [Allergy Relief(diphenhydramin)] 25 mg capsule 25 mg PO Q6H PRN (Reason: itching) liothyronine 5 mcg tablet 5 mcg PO DAILY PreserVision AREDS [phone] gxga-ad-hrai capsule 1 cap PO BID levothyroxine 150 mcg tablet 150 mcg PO .COMPLEX Rx Instructions: 150 mcg orally take 1 tab by mouth daily except take 1.5 tabs MWF; aspirin 81 mg tablet,delayed release (DR/EC) 81 mg PO DAILY atenolol 50 mg tablet 75 mg PO QHS atenolol 50 mg tablet 50 mg PO DAILY Patient Comments: takes in the morning amlodipine 10 mg tablet 10 mg PO DAILY pantoprazole 40 mg Tablet,Delayed Release (Dr/Ec) 40 mg PO DAILY 30 Days Qty: 30 0RF acetaminophen 500 mg Tablet 1,000 mg PO Q8 PRN (Reason: fever or pain) cholecalciferol (vitamin D3) [Vitamin D3] 50 mcg (2,000 unit) capsule 6,000 unit PO DAILY Discontinued losartan 100 MG tablet 100 mg PO QHS nabumetone 500 mg tablet 500 mg PO BID Referrals / Follow Up: Swapna Lowry DO [Primary Care Provider] - Disposition Disposition (needs filled in before D/C Order can be placed): Home, Self Care Charges/Coding Visit Charges Inpatient E&M: 77249 Disch Hosp >30min
--- NOTE | 2025-01-31 12:29 | PCM.CONS.R ---
Assessment & Plan Assessment/Plan (1) [place] (acute kidney injury): PLAN: Baseline creatinine was normal as of 3 months ago. Came with a creatinine of 3.3, somewhat better today. Renal ultrasound without any hydronephrosis. Urine analysis with 1+ protein and significant amount of leukocytes. No symptoms to suggest UTI hence AIN is in the differential. We went over her potential causes of renal failure. She has been on nabumetone for about 5 to 6 weeks. 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 It is possible that she has some form of allergic reaction. She says the pain is mostly neuropathy, we discussed about potentially trying gabapentin. However we need to make sure the renal function is improved week before going on gabapentin. She has been on pantoprazole for about a year. This can potentially cause AIN She also takes quite a bit of supplements. She told me that she takes a supplement called plexus. Reviewed contents, it seems there is quercetin in there. Podi-tqd-[id number] supplement induced AIN is also possible. She says most of the supplements, she has been taking for several years. CT angiogram from earlier this year showed moderate stenosis in both renal arteries. Tried to review images, could not differentiate a percentage. She might need a dedicated CT angiogram eventually. She has been on losartan for a while. It is possible that her renal artery stenosis is a little bit more critical than the CT showing. I would hold the losartan for now. Discussed with hospitalist. Acidosis. Anion gap slightly elevated, likely related to renal failure. (2) Acute hyperkalemia: HPI Consult Data Date of Consult: 01/31/25 HPI Narrative Reason for Consultation: Acute renal failure HPI Narrative: CASSANDRA DELGADO, is a 85 F who presents to the hospital after being advised by primary care physician. Nephrology on consultation in view of acute renal failure. She had routine labs drawn with primary care physician, was found to have acute renal failure and hyperkalemia hence was referred to the hospital. She has been asymptomatic all along. Complains of neuropathy pain for the last several weeks. She saw Dr. Mills, was prescribed nabumetone. She has been taking for about 5 to 6 weeks now. She also takes Tylenol on top. Denies any urinary complaint such as dysuria, hematuria, polyuria, frequency, urgency, flank pain. Never had kidney stones. She does take quite a bit of supplements. She takes a supplement called plexus. She says she has been taking it for a while [facility] Medical History Macular degeneration Vision problem Skin cancer H/O: pneumonia Osteopenia IBS (irritable bowel syndrome) Type 2 diabetes mellitus Cataracts, bilateral Back problem Essential hypertension Fibromyalgia GERD (gastroesophageal reflux disease) Atherosclerotic heart disease of [place] coronary artery without angina pectoris Osteoarthritis of left hip Gout Hyperlipidemia Premature ventricular contraction Premature atrial contractions Hypothyroidism Home Medications ?Medication ?Instructions ?Recorded ?Last Taken ?Type losartan 100 mg tablet 100 mg PO QHS BLOOD PRESSURE 07/08/17 02/26/24 21:30 History lactobacillus combination no.9 4 4,000 mmu cells PO QDAY Probiotic 03/30/18 Unknown History billion cell capsule (Adult 50 Plus Probiotic) diphenhydramine HCl 25 mg capsule 25 mg PO Q6H PRN itching 06/05/20 02/25/24 History (Allergy Relief (diphenhydramine)) liothyronine 5 mcg tablet 5 mcg PO DAILY Thyroid 06/05/20 02/27/24 06:15 History vitamins A,C,O-puqx-mqebof 4,296 1 cap PO BID Supplement 06/22/21 02/27/24 11:45 History mcg-226 mg-90 mg capsule (PreserVision AREDS) aspirin 81 mg tablet,delayed 81 mg PO DAILY Heart 07/15/22 Unknown History release atenolol 50 mg tablet 75 mg PO QHS BLOOD PRESSURE 07/15/22 Unknown History levothyroxine 150 mcg tablet 150 mcg PO .COMPLEX Thyroid 07/15/22 02/27/24 06:15 History amlodipine 10 mg tablet 10 mg PO DAILY Blood pressure 02/27/24 02/27/24 08:30 History atenolol 50 mg tablet 50 mg PO DAILY Blood Pressure 02/27/24 02/27/24 08:30 History pantoprazole 40 mg tablet,delayed 40 mg PO DAILY 30 days #30 tabs 03/10/24 Unknown Rx release acetaminophen 500 mg tablet 1,000 mg PO Q8 PRN fever or pain 01/29/25 Unknown History cholecalciferol (vitamin D3) 50 6,000 unit PO DAILY 01/29/25 Unknown History mcg (2,000 unit) capsule (Vitamin D3) nabumetone 500 mg tablet 500 mg PO BID 01/29/25 Unknown History Allergy/AdvReac Type Severity Reaction Status Date / Time levofloxacin (From Levaquin) Allergy Unknown Verified 01/29/25 16:28 morphine Allergy Itching Verified 01/29/25 16:28 prednisone Allergy Swelling Verified 01/29/25 16:28 celecoxib (From Celebrex) AdvReac Upset Verified 01/29/25 16:28 Stomach hydrochlorothiazide AdvReac DIZZINESS Verified 01/29/25 16:28 niacin AdvReac HOT FLASHES Verified 01/29/25 16:28 pitavastatin (From Livalo) AdvReac MUSCLE Verified 01/29/25 16:28 ACHES Family History Mother Hypertension Arthritis Diabetes Thyroid disorder Sister CAD (coronary artery disease) Hypertension Arthritis Diabetes Heart disease Thyroid disorder Other Lupus Surgical History History of total right hip arthroplasty History of bilateral cataract extraction History of carpal tunnel release History of hip replacement (~07/2017) History of shoulder surgery History of knee replacement procedure of right knee History of tubal ligation History of cholecystectomy Social History household members: none Smoking Status: Never smoker alcohol intake: never substance use type: does not use what type of physical activity do you participate in: none ROS ROS Narrative Negative except above Physical Exam Narrative Alert awake oriented x 3 no obvious distress no pallor no icterus no JVD s1s2 no murmurs lungs clear abdomen soft no organomegaly no edema no cyanosis Lab / Micro Data 01/30/25 03:44 01/31/25 05:22 Labs: Laboratory Results - last 24 hr 01/30/25 13:33: Serum Osmolality 305 H 01/30/25 21:21: Urine Color Yellow, Urine Clarity Clear, Urine pH 6.0, Ur Specific [place] 1.010, Urine Protein 15 H, Urine Glucose (UA) Normal, Urine Ketones Negative, Urine Occult Blood Negative, Urine Nitrite Negative, Urine Bilirubin Negative, Urine Urobilinogen Normal, Ur Leukocyte Esterase 500 H, Urine RBC 0-5 SEEN, Urine WBC 10-25 SEEN, Ur Squamous Epith Cells 0-5 SEEN, Ur Transition Epith Cell 0-5 SEEN, Urine Bacteria 1+, Urine Mucus 0 SEEN, Ur Random Microalbumin 38.6, U Random Total Protein 10.8, Ur Random Sodium 69 01/30/25 21:21: Ur Random Sodium 69, Urine Creatinine 71.60 01/30/25 21:21: Urine Creatinine 71.00, Protein/Creatinin Ratio 152, Urine Potassium 17.8, Urine Chloride 47 01/31/25 05:22: Sodium 134, Potassium 4.3, Chloride 104, Carbon Dioxide 15.7 L, Anion Gap 15, BUN 45 H, Creatinine 2.56 H, Estim Creat Clear Calc 15.78 L, Est GFR (MDRD) Non-Af 18 L, BUN/Creatinine Ratio 17.7, Glucose 132 H, Calcium 9.3
--- NOTE | 2025-01-31 13:22 | CHAPLAIN ---
Type of Pastoral Visit _x__ Initial Visit ___ Follow-up Visit ___ On-call Visit ___ General Patient Visit ___ Spiritual Assessment ___ Family Conference ___ Bereavement ___ Rapid Response ___ Code Blue ___ Other (describe below) Pastoral Care Referral From _x__ Patient _x__ Family ___ Nurse ___ Physician ___ Adjunct Physics Instructor ___ Informatics Consultant ___ Other (describe below) Sacrament/Intervention _x__ Active listening ___ Anointing ___ Gnosticist ___ Bereavement ___ Communion _x__ Swapna exploration ___ _x__ Life review _x__ Prayer ___ Reconciliation ___ Sacrament of Sick _x__ Supportive presence ___ Wedding ___ Other (describe below) Pastoral Comments patient shares concerns about how her pain leaves her debilitated and anxious about her future; pt wants to return to her regular life and not have to have my daughters take care of me; 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
[2025-01-31 13:28] VITALS: BP 152/62; PULSE 63; RESP 18; TEMP 36.4; O2SAT 98
--- NOTE | 2025-01-31 13:30 | CASEMGMT ---
Patient has order for discharge. RN CM in to discuss needs at discharge. Patient denies further needs or help at discharge. Patient had no further questions or concerns.
[2025-01-31 14:01] VITALS: BP 150/58; PULSE 65; O2SAT 98
[2025-01-31 14:03] VITALS: BP 150/58; PULSE 65
--- NOTE | 2025-01-31 14:07 | PHA.DC_ITS ---
Pharmacy [facility] Counseling Pharmacy Service has performed discharge medication reconciliation and counseling for this patient. The patient's discharge medication list was reviewed for discrepancies and discrepancies were resolved. The patient was counseled on the following discharge medications and changes in medications for homegoing were reviewed. The Reason for Use, instructions for use, and potential side effects were reviewed for all new medications. The patient's questions regarding all of their medications were answered. 1. Hydralazine 25 mg PO TID The patient was able to verbally demonstrate an understanding of their discharge medications. Medications at Discharge Home Medications lactobacillus combination no.9 4 billion cell capsule (Adult 50 Plus Probiotic) 4,000 mmu cells PO QDAY Probiotic 03/30/18 diphenhydramine HCl 25 mg capsule (Allergy Relief (diphenhydramine)) 25 mg PO Q6H PRN itching 06/05/20 liothyronine 5 mcg tablet 5 mcg PO DAILY Thyroid 06/05/20 vitamins A,C,D-nyhb-ptrkmj 4,296 mcg-226 mg-90 mg capsule (PreserVision AREDS) 1 cap PO BID Supplement 06/22/21 aspirin 81 mg tablet,delayed release 81 mg PO DAILY Heart 07/15/22 atenolol 50 mg tablet 75 mg PO QHS BLOOD PRESSURE 07/15/22 levothyroxine 150 mcg tablet 150 mcg PO .COMPLEX Thyroid 07/15/22 amlodipine 10 mg tablet 10 mg PO DAILY Blood pressure 02/27/24 atenolol 50 mg tablet 50 mg PO DAILY Blood Pressure 02/27/24 pantoprazole 40 mg tablet,delayed release 40 mg PO DAILY reflux 30 days #30 tabs 03/10/24 acetaminophen 500 mg tablet 1,000 mg PO Q8 PRN fever or pain 01/29/25 cholecalciferol (vitamin D3) 50 mcg (2,000 unit) capsule (Vitamin D3) 6,000 unit PO DAILY vitamin 01/29/25 hydralazine 25 mg tablet 25 mg PO TID 30 days #90 tabs 01/31/25
== END 2025-01-31 17:29 | disposition home or self-care (01) | DRG 683 ==
LOC: ED 18:10 → PCU 18:21
PROVIDERS: Internal Medicine; Admitting Provider Hospitalist; Emergency Provider Emergency Medicine; PCP Internal Medicine; Referring Provider Hospitalist; Visit Provider Hospitalist
DX: N17.9 Acute kidney failure, unspecified (principal); E87.20 Acidosis, unspecified; E11.9 Type 2 diabetes mellitus without complications; E03.9 Hypothyroidism, unspecified; I10 Essential (primary) hypertension; E66.811 Obesity, class 1; I25.10 Atherosclerotic heart disease of native coronary artery without angina pectoris; K21.9 Gastro-esophageal reflux disease without esophagitis; E87.5 Hyperkalemia; E78.5 Hyperlipidemia, unspecified; M54.31 Sciatica, right side; M54.32 Sciatica, left side; Z68.34 Body mass index [BMI] 34.0-34.9, adult; Z79.890 Hormone replacement therapy; Z85.828 Personal history of other malignant neoplasm of skin; Z79.82 Long term (current) use of aspirin; Z79.899 Other long term (current) drug therapy; Z96.641 Presence of right artificial hip joint; Z98.41 Cataract extraction status, right eye; Z98.42 Cataract extraction status, left eye; Z98.51 Tubal ligation status; Z90.49 Acquired absence of other specified parts of digestive tract; Z79.1 Long term (current) use of non-steroidal anti-inflammatories (NSAID); T39.395A Adverse effect of other nonsteroidal anti-inflammatory drugs [NSAID], initial encounter
CPT/HCPCS: 36415; 76770; 80048; 81001; 82043; 82436; 82570; 82962; 83930; 84133; 84156; 84300; 85025; 85027; 87086; 87088; 93005; 94640; 99285; A4216

== ENCOUNTER 2025-02-07 15:50 | Emergency (ER) | payer MEDICARE, SELFPAY ==
[2025-02-07 15:51] VITALS: BP 150/77; PULSE 80; RESP 16; TEMP 37.2; O2SAT 98; BMI 34.7
[2025-02-07 17:53] VITALS: BP 162/67; PULSE 73; TEMP 36.6; O2SAT 99
--- NOTE | 2025-02-07 18:55 | RAD_ITS ---
PROCEDURE: HAND MIN 3 VIEWS 02/07/2025 REASON FOR EXAM: CAT BITE TECHNIQUE: HAND MIN 3 VIEWS COMPARISON: None FINDINGS: Evaluation of the index finger is limited due to patient inability to fully extend. No displaced fracture or traumatic malalignment. There is moderate joint space narrowing and osteophyte formation throughout the interphalangeal joints and at the 1st carpometacarpal and triscaphe joints. Vascular calcifications in the soft tissues. No radiopaque foreign body. RAD/Hand Min 3 Views IMPRESSION: 1. No displaced fracture or radiopaque foreign body. 2. Moderate osteoarthritis throughout the hand and wrist. Reading Location: [facility]
[2025-02-07 19:00] VITALS: BP 153/61; PULSE 64; O2SAT 97
[2025-02-07 19:44] VITALS: BP 158/61; PULSE 73; TEMP 37.2; O2SAT 97
--- NOTE | 2025-02-07 19:45 | EX.ED.DYSGE1 ---
HPI History of Present Illness Chief Complaint: Bite Narrative Narrative: Patient is a 85-year-old female with past medical history type 2 diabetes, hypertension, GERD, fibromyalgia, hypothyroidism who presents to the emergency department chief complaint cat bite. Patient states that the cat was trying to sit on her lap on Friday she went to put it off and it bit her. States that this is her daughter's cat and the shots are up-to-date. Patient states that she feels like the redness is getting worse and has not been on any antibiotics therefore she came here for further evaluation management. [facility] Medical History Macular degeneration Vision problem Skin cancer H/O: pneumonia Osteopenia IBS (irritable bowel syndrome) Type 2 diabetes mellitus Cataracts, bilateral Back problem Essential hypertension Fibromyalgia GERD (gastroesophageal reflux disease) Atherosclerotic heart disease of [place] coronary artery without angina pectoris Osteoarthritis of left hip Gout Hyperlipidemia Premature ventricular contraction Premature atrial contractions Hypothyroidism Home Medications ?Medication ?Instructions ?Recorded ?Last Taken ?Type lactobacillus combination no.9 4 4,000 mmu cells PO QDAY Probiotic 03/30/18 02/06/25 History billion cell capsule (Adult 50 Plus Probiotic) liothyronine 5 mcg tablet 5 mcg PO DAILY Thyroid 06/05/20 02/07/25 History vitamins A,C,B-wdby-wtlofg 4,296 1 cap PO BID Supplement 06/22/21 02/07/25 History mcg-226 mg-90 mg capsule (PreserVision AREDS) aspirin 81 mg tablet,delayed 81 mg PO DAILY Heart 07/15/22 02/07/25 History release atenolol 50 mg tablet 75 mg PO QHS BLOOD PRESSURE 07/15/22 02/07/25 History levothyroxine 150 mcg tablet 150 mcg PO .COMPLEX Thyroid 07/15/22 02/07/25 History amlodipine 10 mg tablet 10 mg PO DAILY Blood pressure 02/27/24 02/07/25 History atenolol 50 mg tablet 50 mg PO DAILY Blood Pressure 02/27/24 02/07/25 History pantoprazole 40 mg tablet,delayed 40 mg PO DAILY reflux 30 days #30 03/10/24 02/07/25 Rx release tabs acetaminophen 500 mg tablet 1,000 mg PO Q8 PRN fever or pain 01/29/25 Unknown History cholecalciferol (vitamin D3) 50 6,000 unit PO DAILY vitamin 01/29/25 02/07/25 History mcg (2,000 unit) capsule (Vitamin D3) hydralazine 25 mg tablet 25 mg PO TID 30 days #90 tabs 01/31/25 02/07/25 Rx amoxicillin 875 mg-potassium 1 tab PO Q12H 10 days #20 tabs 02/07/25 Unknown Rx clavulanate 125 mg tablet Allergy/AdvReac Type Severity Reaction Status Date / Time levofloxacin (From Levaquin) Allergy Unknown Verified 02/07/25 15:51 morphine Allergy Itching Verified 02/07/25 15:51 prednisone Allergy Swelling Verified 02/07/25 15:51 celecoxib (From Celebrex) AdvReac Upset Verified 02/07/25 15:51 Stomach hydrochlorothiazide AdvReac DIZZINESS Verified 02/07/25 15:51 niacin AdvReac HOT FLASHES Verified 02/07/25 15:51 pitavastatin (From Livalo) AdvReac MUSCLE Verified 02/07/25 15:51 ACHES Family History Mother Hypertension Arthritis Diabetes Thyroid disorder Sister CAD (coronary artery disease) Hypertension Arthritis Diabetes Heart disease Thyroid disorder Other Lupus Surgical History History of total right hip arthroplasty History of bilateral cataract extraction History of carpal tunnel release History of hip replacement (~07/2017) History of shoulder surgery History of knee replacement procedure of right knee History of tubal ligation History of cholecystectomy Social History household members: none Smoking Status: Never smoker alcohol intake: never substance use type: does not use what type of physical activity do you participate in: none ROS ROS ED ROS Narrative Constitutional: Denies any fever, chills, Neurological: Denies numbness, wheeze, tingling Musculoskeletal: Complains of cat bite to the right hand as noted above Skin: Complains of redness and swelling to the right hand as noted above EXAM Physical Exam Narrative Exam Narrative: General: Patient lying in bed rest comfortably did not appear to be in acute distress Head: Atraumatic, normocephalic Eyes: PERRL bilaterally, EOMI blood, no conjunctival injection noted Neck: Soft, supple, trachea midline Cardiovascular: Regular in rhythm no murmurs gallops rubs noted Respiratory: Clear to auscultation bilaterally Extremities: +5/5 strength noted in the bilateral upper and lower extremities, radial pulses +2/4 in the right extremity, no pedal edema on exam Neurological: Patient follow commands knew that she was at [facility] the year is 2024 sensation grossly intact in the median ulnar and radial nerve distribution bilaterally Skin: Patient has erythema noted to the dorsal aspect of the right hand just proximal to the 4th and 5th phalanx. No petechia no purpura no sloughing of skin noted Const Vital Signs: 02/07/25 15:51 02/07/25 17:53 02/07/25 19:00 Temperature 99.0 F 97.8 F Temperature Source Oral Oral Pulse Rate 80 73 64 Respiratory Rate 16 Blood Pressure 150/77 H 162/67 H 153/61 H Blood Pressure Mean 101 98 91 Pulse Ox 98 99 97 Oxygen Delivery Method Room Air Room Air Room Air 02/07/25 19:44 02/07/25 21:00 Temperature 99.0 F Temperature Source Oral Pulse Rate 73 74 Respiratory Rate 16 Blood Pressure 158/61 H Blood Pressure Mean 93 Pulse Ox 97 Oxygen Delivery Method Room Air MDM MDM MDM Narrative Medical decision making narrative: Patient is a 85-year-old female who presented to the emergency department chief complaint of cat bite to the right hand. On the differential diagnose includes but not limited to cellulitis, cat bite, retained foreign body. Once workup is obtained reviewed she will be reevaluated. Patient be given first dose of Augmentin here in the emergency department. Patient given her first dose of Augmentin here in the emergency department Patient's x-ray of her hand reviewed showed no displaced fracture or radiopaque foreign body moderate osteoarthritis throughout the hand and wrist. Did discuss results with the patient she would like to go home at this point time. She is advised to take antibiotics as prescribed that these were sent to the pharmacy. She was advised to return with worsening symptoms or any concerns. She is agreeable to plan as well as family bedside all question concerns answered she was discharged home in stable condition. Radiography Diagnostic Testing: Clinical Impression(s) from Imaging Studies Hand X-Ray 02/07/25 18:55 IMPRESSION: 1. No displaced fracture or radiopaque foreign body. 2. Moderate osteoarthritis throughout the hand and wrist. Reading Location: [id number] Discharge Plan Triage Chief Complaint: Bite ED Provider: Gee Hamilton Dx/Rx/DC Orders Clinical Impression: Cat bite of hand, Cellulitis of hand Prescriptions: New amoxicillin-pot clavulanate 875-125 mg tablet 1 tab PO Q12H 10 Days Qty: 20 0RF No Action Adult 50 Plus Probiotic 4 billion cell capsule 4,000 mmu cells PO QDAY liothyronine 5 mcg tablet 5 mcg PO DAILY PreserVision AREDS 14,320-226-200 dnjv-or-yybt capsule 1 cap PO BID levothyroxine 150 mcg tablet 150 mcg PO .COMPLEX Rx Instructions: 150 mcg orally take 1 tab by mouth daily except take 1.5 tabs MWF; aspirin 81 mg tablet,delayed release (DR/EC) 81 mg PO DAILY atenolol 50 mg tablet 75 mg PO QHS atenolol 50 mg tablet 50 mg PO DAILY Patient Comments: takes in the morning amlodipine 10 mg tablet 10 mg PO DAILY pantoprazole 40 mg Tablet,Delayed Release (Dr/Ec) 40 mg PO DAILY 30 Days Qty: 30 0RF acetaminophen 500 mg Tablet 1,000 mg PO Q8 PRN (Reason: fever or pain) cholecalciferol (vitamin D3) [Vitamin D3] 50 mcg (2,000 unit) capsule 6,000 unit PO DAILY hydralazine 25 mg Tablet 25 mg PO TID 30 Days Qty: 90 2RF Primary Care Provider: Swapna Lowry Referrals: Swapna Lowry DO [Primary Care Provider] - Activity Restrictions/Additional Instructions: Follow-up your doctor in the outpatient setting. Return with worsening symptoms or any other concerns. Take antibiotics as prescribed. Your x-ray did not show any acute findings. Print Language: Japanese Disposition Disposition: Home, Self Care
[2025-02-07] MEDS: Amox/Clavulanate 875 MG Tablet PO (19:59)
[2025-02-07 21:00] VITALS: PULSE 74; RESP 16
[2025-02-07 21:41] VITALS: BP 158/61; PULSE 74; RESP 16; TEMP 37.2; O2SAT 97
[2025-02-07] MEDS: Diphth,Pertuss(Acell),Tet Vac 0.5 ML Vial IM (21:59)
== END 2025-02-07 22:09 | disposition home or self-care (01) ==
PROVIDERS: Emergency Provider Emergency Medicine; PCP Internal Medicine; Visit Provider Emergency Medicine
DX: S61.451A Open bite of right hand, initial encounter (principal); E11.9 Type 2 diabetes mellitus without complications; L03.113 Cellulitis of right upper limb; I25.10 Atherosclerotic heart disease of native coronary artery without angina pectoris; E78.5 Hyperlipidemia, unspecified; I10 Essential (primary) hypertension; W55.01XA Bitten by cat, initial encounter; Z85.828 Personal history of other malignant neoplasm of skin; Z79.82 Long term (current) use of aspirin; Z79.899 Other long term (current) drug therapy; E03.9 Hypothyroidism, unspecified; K21.9 Gastro-esophageal reflux disease without esophagitis; Z96.641 Presence of right artificial hip joint; Z98.41 Cataract extraction status, right eye; Z98.42 Cataract extraction status, left eye; Z96.651 Presence of right artificial knee joint; Z98.51 Tubal ligation status; Z90.49 Acquired absence of other specified parts of digestive tract
CPT/HCPCS: 73130; 90715; 99282

== ENCOUNTER → 2025-03-09 | Outpatient (CLI) | payer MEDICARE, SELFPAY ==
[2025-03-09 13:47] LABS: Barbiturate Urine NEGATIVE (< 200 ng/mL); Benzodiazepine Urine NEGATIVE (< 200 ng/mL); PCP Urine NEGATIVE (< 25 ng/mL); THC Urine NEGATIVE (< 50 ng/mL)
== END | disposition home or self-care (01) ==
LOC: LAB 12:03
PROVIDERS: PCP Internal Medicine; Referring Provider Anesthesiology Pain Medicine; Visit Provider Anesthesiology Pain Medicine
DX: F11.20 Opioid dependence, uncomplicated (principal)
CPT/HCPCS: 80307

== ENCOUNTER 2025-03-31 15:13 | Emergency (ER) | payer MEDICARE, SELFPAY ==
[2025-03-31 15:16] VITALS: BP 149/57; PULSE 63; RESP 16; TEMP 36.5; O2SAT 97; BMI 34.9
--- NOTE | 2025-03-31 15:37 | RAD_ITS ---
PROCEDURE: PELVIS 1 OR 2 VIEWS 03/31/2025 REASON FOR EXAM: FALL, HIP PAIN WORSE ON LEFT TECHNIQUE: PELVIS 1 OR 2 VIEWS COMPARISON: None. FINDINGS: Hardware: Status post total bilateral hip replacement. Bones: No periprosthetic fracture. No evidence of hardware loosening. Joints: No dislocations. soft tissues: No soft tissue abnormalities. RAD/Pelvis 1 or 2 Views IMPRESSION: No acute findings. Reading Location: [id number]
--- NOTE | 2025-03-31 15:37 | RAD_ITS ---
PROCEDURE: CHEST PA AND LATERAL 03/31/2025 REASON FOR EXAM: FALL TECHNIQUE: CHEST PA AND LATERAL COMPARISON: CT chest 04/12/2022. FINDINGS: Hardware: None. Heart: Mild cardiomegaly. Mediastinum: Tortuosity and atherosclerotic calcifications of the aorta are stable. Lungs: Clear. No pleural effusion. No pneumothorax. Bones: No acute bony abnormalities. RAD/Chest PA and Lateral IMPRESSION: No acute cardiopulmonary abnormalities. Reading Location: [id number]
--- NOTE | 2025-03-31 15:37 | RAD_ITS ---
PROCEDURE: SHOULDER MIN 2 VIEWS 03/31/2025 REASON FOR EXAM: FALL, SHOULDER PAIN TECHNIQUE: SHOULDER MIN 2 VIEWS Laterality: Right COMPARISON: None. FINDINGS: Bones: No acute bony abnormalities. Joints: Unremarkable. No dislocation. Soft tissues: No soft tissue abnormalities. RAD/Shoulder min 2 Views IMPRESSION: No acute bony abnormalities. Reading Location: [id number]
--- NOTE | 2025-03-31 15:39 | EDS_ITS ---
HPI HPI - Fall History of Present Illness Chief Complaint: Fall Narrative Narrative: Patient is an 85-year-old female presenting to the emergency department for a fall. Patient has a past medical history as below including hypertension, total hip replacement, hyperlipidemia, hypothyroidism. Patient states she normally ambulates with a rollator. States she was going up a ramp and brought with her rollator and her left leg gave out on her causing her to fall backwards onto her buttocks and then hitting the back of her head. She denies any loss of consciousness. Denies any use of oral anticoagulation. Denies any neck or back pain. States that is very common for her left leg to give out on her, this is not a new issue. She endorses pain to her left hip and right upper arm. Did not take anything for pain prior to arrival. [facility] Medical History Macular degeneration Vision problem Skin cancer H/O: pneumonia Osteopenia IBS (irritable bowel syndrome) Type 2 diabetes mellitus Cataracts, bilateral Back problem Essential hypertension Fibromyalgia GERD (gastroesophageal reflux disease) Atherosclerotic heart disease of [place] coronary artery without angina pectoris Osteoarthritis of left hip Gout Hyperlipidemia Premature ventricular contraction Premature atrial contractions Hypothyroidism Home Medications ?Medication ?Instructions ?Recorded ?Last Taken ?Type lactobacillus combination no.9 4 4,000 mmu cells PO QD AY Probiotic 03/30/18 02/06/25 History billion cell capsule (Adult 50 Plus Probiotic) liothyronine 5 mcg tablet 5 mcg PO DAILY Thyroid 06/0502/07/25 History vitamins A,C,B-wbct-jkrdea 4,296 1 cap PO BID Suppleme nt 06/22/21 02/07/25 History mcg-226 mg-90 mg capsule (PreserVision AREDS) aspirin 81 mg tablet,delayed 81 mg PO DAILY Heart 12/3002/07/25 History release atenolol 50 mg tablet 75 mg PO QHS BLOOD PRESSURE 07/15/22 02/07/25 History levothyroxine 150 mcg tablet 150 mcg PO .COMPLEX Thyro id 07/15/22 02/07/25 History amlodipine 10 mg tablet 10 mg PO DAILY Blood pressur e 02/27/24 02/07/25 History atenolol 50 mg tablet 50 mg PO DAILY Blood Pressur e 02/27/24 02/07/25 History pantoprazole 40 mg tablet,delayed 40 mg PO DAILY reflu x 30 days #30 03/10/24 02/07/25 Rx release tabs acetaminophen 500 mg tablet 1,000 mg PO Q8 PRN fever o r pain 01/29/25 Unknown History cholecalciferol (vitamin D3) 50 6,000 unit PO DAILY vi tamin 01/29/25 02/07/25 History mcg (2,000 unit) capsule (Vitamin D3) hydralazine 25 mg tablet 25 mg PO TID 30 days #90 tab s 01/31/25 02/07/25 Rx amoxicillin 875 mg-potassium 1 tab PO Q12H 10 days #20 tabs 02/07/25 Unknown Rx clavulanate 125 mg tablet Allergy/AdvReac Type Severity Reaction Status Date / Time levofloxacin (From Levaquin) Allergy Unknown Verified 03/31/25 15:16 morphine Allergy Itching Verified 03/31/25 15:16 prednisone Allergy Swelling Verified 03/31/25 15:16 celecoxib (From Celebrex) AdvReac Upset Verified 03/31/25 15:16 Stomach hydrochlorothiazide AdvReac DIZZINESS Verified 03/31/25 15:16 niacin AdvReac HOT FLASHES Verified 03/31/25 15:16 pitavastatin (From Livalo) AdvReac MUSCLE Verified 03/31/25 15:16 ACHES Family History Mother Hypertension Arthritis Diabetes Thyroid disorder Sister CAD (coronary artery disease) Hypertension Arthritis Diabetes Heart disease Thyroid disorder Other Lupus Surgical History History of total right hip arthroplasty History of bilateral cataract extraction History of carpal tunnel release History of hip replacement (~07/2017) History of shoulder surgery History of knee replacement procedure of right knee History of tubal ligation History of cholecystectomy Social History household members: none Smoking Status: Never smoker alcohol intake: never substance use type: does not use what type of physical activity do you participate in: none ROS ROS ED ROS Narrative see HPI EXAM Physical Exam Narrative Exam Narrative: Vital signs: Reviewed General: Alert and oriented x 3. No acute distress HEENT: Head is normocephalic. Cephalhematoma to the left parietal region. There is no laceration or abrasion. There is no bogginess felt. Midface is nontender to palpation and stable. Pupils equal round and reactive. Extraocular movements intact. Nares are patent. No septal hematoma. Oropharynx and throat exams normal. Neck: Supple without lymphadenopathy nontender. No midline cervical spinal tenderness to palpation. No step-offs or deformities. Cardiovascular: Regular rate and rhythm, no murmurs. No rubs or gallops. Normal S1 and S2 Chest: Chest wall is stable on nontender to palpation. No ecchymosis or erythema. No crepitus. Respiratory: Clear to auscultation bilaterally. No wheezes, rales, rhonchi Abdominal: Soft and nontender. Normal bowel sounds. No guarding or rebound. Nonsurgical abdomen Extremities: There is tenderness to palpation of the right proximal and mid humerus. No obvious deformity. No tenderness to palpation of the right clavicle, distal humerus, elbow, forearm, wrist or hand. Radial pulses intact bilaterally. Sensation intact bilaterally. Range of motion of the right shoulder limited due to pain. Left upper extremity is atraumatic and nontender to palpation with normal range of motion. Bilateral hips are tender to palpation in the lateral/posterior aspect. There is no obvious deformities. Range of motion limited in bilateral lower extremities which is chronic per patient and daughters at bedside. Skin: No rash or redness. Neurological: Cranial nerves II through XII are grossly intact. Normal strength and sensation. Normal cerebellar function The rest of the physical exam is unremarkable Const Vital Signs: 03/31/25 15:16 03/31/25 15:21 Temperature 97.7 F L Temperature Source Oral Pulse Rate 63 Respiratory Rate 16 Respiratory Effort Normal Non-Labored Respiratory Depth Normal Respiratory Pattern Normal Blood Pressure 149/57 H Blood Pressure Mean 87 Pulse Ox 97 Oxygen Delivery Method Room Air MDM MDM MDM Narrative Medical decision making narrative: Patient is a 85-year-old female presenting to the emergency department after a fall. Patient was seen and examined. Vitals are stable. Patient resting in bed comfortably in no acute distress. Patient has had issues with her legs giving out on her in the past and this is not a new issue. Is feeling baseline otherwise. No indication for labs or ad ditional workup in relation to the cause of the fall. CT the brain, cervical spine, right shoulder, humerus, chest x-ray and pelvis x-ray ordered. Patient given Tylenol for pain control. CT of the brain with no acute intracranial abnormalities. CT of cervical spine with no acute injury to the cervical spine noted. X-rays reviewed by myself and show no acute fractures. Radiology read with no acute bony abnormalities as well. Ambulation test with walker, patient did well. Patient and family updated on the negative imaging. Your evaluation in the Emergency Department did not reveal any acute reason for admission. However, I want to emphasize that you may be early in the course of a disease process or illness even if it is not present. For this reason you should follow- up within 24 hours for reevaluation with either your primary care physician or if necessary back here in the Emergency Department. You should return to the Emergency Department immediately if your symptoms worsen or new symptoms develop. Clinical impression Fall Right arm pain Left hip pain Cephalohematoma History & Record Review Discussion w/independent historian: Patient and Family Radiography Diagnostic Testing: Clinical Impression(s) from Imaging Studies Chest X-Ray 03/31/25 15:37 IMPRESSION: No acute cardiopulmonary abnormalities. Reading Location: [id number] Pelvis X-Ray 03/31/25 15:37 IMPRESSION: No acute findings. Reading Location: [id number] Shoulder X-Ray 03/31/25 15:37 IMPRESSION: No acute bony abnormalities. Reading Location: [id number] Brain CT 03/31/25 15:47 IMPRESSION: No acute intracranial abnormalities. Reading Location: [id number] Cervical Spine CT 03/31/25 15:47 IMPRESSION: No acute injury to the cervical spine. Reading Location: [id number] Humerus X-Ray 03/31/25 15:50 IMPRESSION: No acute injury to the right humerus. Reading Location: [id number] Discharge Plan Triage Chief Complaint: Fall ED Provider: Dimple Hunt Dx/Rx/DC Orders Clinical Impression: Cephalohematoma, Fall, Arm pain, right, Hip pain, left Instructions: Exercises to Prevent Falls, ED Hip Strain, ED RICE Prescriptions: No Action Adult 50 Plus Probiotic 4 billion cell capsule 4,000 mmu cells PO QDAY liothyronine 5 mcg tablet 5 mcg PO DAILY PreserVision AREDS 14,320-226-200 pdtf-du-tglt capsule 1 cap PO BID levothyroxine 150 mcg tablet 150 mcg PO .COMPLEX Rx Instructions: 150 mcg orally take 1 tab by mouth daily except take 1.5 tabs MWF; aspirin 81 mg tablet,delayed release (DR/EC) 81 mg PO DAILY atenolol 50 mg tablet 75 mg PO QHS atenolol 50 mg tablet 50 mg PO DAILY Patient Comments: takes in the morning amlodipine 10 mg tablet 10 mg PO DAILY pantoprazole 40 mg Tablet,Delayed Release (Dr/Ec) 40 mg PO DAILY 30 Days Qty: 30 0RF acetaminophen 500 mg Tablet 1,000 mg PO Q8 PRN (Reason: fever or pain) cholecalciferol (vitamin D3) [Vitamin D3] 50 mcg (2,000 unit) capsule 6,000 unit PO DAILY hydralazine 25 mg Tablet 25 mg PO TID 30 Days Qty: 90 2RF amoxicillin-pot clavulanate 875-125 mg tablet 1 tab PO Q12H 10 Days Qty: 20 0RF Primary Care Provider: Swapna Lowry Referrals: Swapna Lowry DO [Primary Care Provider] - 2 Days Activity Restrictions/Additional Instructions: Your evaluation in the Emergency Department did not reveal any acute reason for admission. However, I want to emphasize that you may be early in the course of a disease process or illness even if it is not present. For this reason you should follow-up within 24 hours for reevaluation with either your primary care physician or if necessary back here in the Emergency Department. You should return to the Emergency Department immediately if your symptoms worsen or new symptoms develop. Print Language: Maltese Disposition Disposition: Home, Self Care
--- NOTE | 2025-03-31 15:47 | CT_ITS ---
PROCEDURE: BRAIN/HEAD WITHOUT CONTRAST 03/31/2025 REASON FOR EXAM: FALL, HEMATOMA TO BACK OF HEAD TECHNIQUE: BRAIN/HEAD WITHOUT CONTRAST Coronal and Sagittal reconstruction series were provided. One or more dose reduction techniques were used (e.g., Automated exposure control, adjustment of the mA and/or kV according to patient size, use of iterative reconstruction technique. RADIATION DOSE SUMMARY: CTDlvol: 18.71 mGy DLP: 1143.03 mGycm COMPARISON: CT head 06/15/2024. FINDINGS: Brain: Extensive low density in the deep cerebral white matter most likely represents advanced chronic small vessel ischemic disease. No acute territorial infarction. No acute intracranial hemorrhage. No mass-effect or midline shift. CSF Spaces: Advanced generalized cerebral atrophy Sinuses/Mastoids: Clear. Bones: No acute bony abnormalities. Left parietal scalp hematoma. CT/Brain/Head without Contrast IMPRESSION: No acute intracranial abnormalities. Reading Location: [id number]
--- NOTE | 2025-03-31 15:47 | CT_ITS ---
PROCEDURE: SPINE CERVICAL WITHOUT CONTRAS 03/31/2025 REASON FOR EXAM: FALL HIT HEAD TECHNIQUE: SPINE CERVICAL WITHOUT CONTRAS Coronal and Sagittal reconstruction series were provided. One or more dose reduction techniques were used (e.g., Automated exposure control, adjustment of the mA and/or kV according to patient size, use of iterative reconstruction technique. RADIATION DOSE SUMMARY: CTDlvol: 18.71 mGy DLP: 1143.03 mGycm COMPARISON: None. FINDINGS: Alignment: Normal. Vertebrae: No acute bony abnormalities. Soft Tissues: No soft tissue abnormalities. Disc levels: Multilevel degenerate changes of the cervical spine predominantly at C5-C6 where there is disc space narrowing, facet joint arthropathy, uncovertebral hypertrophy with severe bilateral foramina stenosis and mild canal stenosis. CT/Spine Cervical without Contras IMPRESSION: No acute injury to the cervical spine. Reading Location: [facility]
--- NOTE | 2025-03-31 15:50 | RAD_ITS ---
PROCEDURE: HUMERUS MIN 2 VIEWS 03/31/2025 REASON FOR EXAM: FALL, PAIN TECHNIQUE: HUMERUS MIN 2 VIEWS Laterality: Right COMPARISON: None. FINDINGS: Bones: No acute fractures. Joints: No dislocations. Soft tissues: No soft tissue abnormalities. RAD/Humerus min 2 Views IMPRESSION: No acute injury to the right humerus. Reading Location: [id number]
[2025-03-31 17:14] VITALS: BP 136/84; PULSE 74; RESP 16; TEMP 36.6; O2SAT 99
== END 2025-03-31 18:18 | disposition home or self-care (01) ==
PROVIDERS: Emergency Provider Student in an Organized Health Care Education/Training Program; PCP Internal Medicine; Visit Provider Student in an Organized Health Care Education/Training Program
DX: S00.93XA Contusion of unspecified part of head, initial encounter (principal); E11.9 Type 2 diabetes mellitus without complications; M25.511 Pain in right shoulder; M25.552 Pain in left hip; W10.2XXA Fall (on)(from) incline, initial encounter; M79.601 Pain in right arm; I25.10 Atherosclerotic heart disease of native coronary artery without angina pectoris; I10 Essential (primary) hypertension; E78.5 Hyperlipidemia, unspecified; E03.9 Hypothyroidism, unspecified; Z79.82 Long term (current) use of aspirin; Z79.890 Hormone replacement therapy; Z79.899 Other long term (current) drug therapy
CPT/HCPCS: 70450; 71046; 72125; 72170; 73030; 73060; 99284

== ENCOUNTER → 2025-05-13 | Outpatient (CLI) | payer MEDICARE, SELFPAY ==
--- NOTE | 2025-05-13 12:41 | MRI_ITS ---
PROCEDURE: SPINE LUMBAR (ROUTINE) 05/13/2025 REASON FOR EXAM: RADICULOPATHY TECHNIQUE: Procedure Code: MRISPL Modality: MR Procedure: SPINE LUMBAR (ROUTINE) COMPARISON: None FINDINGS: Vertebrae: Preserved in height and signal. A Schmorl node at the lower endplate of L3. Alignment: Unremarkable. Conus Medullaris: Unremarkable. T12-L1: Disc desiccation. Disc bulge. Facet joint arthropathy. Mild bilateral foramina stenosis. L1-2: Disc desiccation. Disc bulge. Mild bilateral foramina stenosis. Mild canal stenosis. L2-3: Disc desiccation. Disc bulge. Facet joint arthropathy. Ligamentum flavum hypertrophy. Severe bilateral foramina stenosis. Severe canal stenosis. L3-4: Disc desiccation. Disc bulge. Facet joint arthropathy. Ligamentum flavum hypertrophy. Severe canal stenosis. Severe left and moderate right foramina stenosis. L4-5: Disc desiccation. Disc bulge. Facet joint arthropathy. Ligamentum flavum hypertrophy. Moderate bilateral foramina stenosis. Moderate canal stenosis. L5-S1: Disc desiccation. Disc bulge. Facet joint arthropathy. No significant foraminal or canal stenosis. Sacrum: Unremarkable. MRI/Spine Lumbar (Routine) IMPRESSION: Degenerate changes, predominantly for severe canal stenosis at L2-L3 and L3-L4. Severe bilateral foramina stenosis at L2-L3. Severe left foramina stenosis at L3-L4. Moderate bilateral foramina stenosis at L4-L5. Reading Location: [id number]
== END | disposition home or self-care (01) ==
LOC: MRI 12:35
PROVIDERS: PCP Internal Medicine; Referring Provider Anesthesiology Pain Medicine; Visit Provider Anesthesiology Pain Medicine
DX: M54.16 Radiculopathy, lumbar region (principal)
CPT/HCPCS: 72148

== ENCOUNTER → 2025-05-20 | Outpatient (CLI) | payer MEDICARE, SELFPAY | END | disposition home or self-care (01) | LOC: MTLAB 14:29 | PROVIDERS: PCP Internal Medicine; Referring Provider Internal Medicine; Visit Provider Internal Medicine | DX: M25.50 Pain in unspecified joint (principal) | CPT/HCPCS: 36415; 86617 ==